=== PATIENT | male | born 1965 | race Caucasian/White ===

== ENCOUNTER 2016-12-29 08:21 | Inpatient (IN) | payer BC, OTHER ==
[2016-11-19 10:58] VITALS: BMI 44.0
--- NOTE | 2016-11-19 11:29 | PAT Medication Instructions ---
Service Date Nov 19, 2016. Current Home Medication List Celecoxib (Celebrex), 100 MG PO BID PRN for Pain Lisinopril/Hctz (Zestoretic 20MG/25MG), 1 TAB PO BID Metronidazole (Topical) (Metrogel), 1 DOSE TOP HS Multivitamin (Multivitamin), 1 TAB PO QAM Warfarin Sodium (Warfarin Sodium), 15 MG PO WEDNESDAY Warfarin Sodium (Warfarin Sodium), 10 MG PO WED,,,,, Medication Instructions For Your Scheduled Surgery - Hold the following medications per your prescriber's instructions: Warfarin Sodium (Warfarin Sodium), 15 MG PO WEDNESDAY Warfarin Sodium (Warfarin Sodium), 10 MG PO WED,,,,, - Hold the following medications per your surgeon's instructions: Celecoxib (Celebrex), 100 MG PO BID PRN for Pain - Hold the following medications 24 hours prior to surgery: Lisinopril/Hctz (Zestoretic 20MG/25MG), 1 TAB PO BID Metronidazole (Topical) (Metrogel), 1 DOSE TOP HS - Hold the following medications the morning of surgery: Multivitamin (Multivitamin), 1 TAB PO QAM If you have any questions please call us at [phone] or [phone] or [phone]
[2016-11-19 12:36] LABS: BASO % 0.9 %; BASO ABS # 0.06 K/uL (0-0.2); BUN/CREATININE RATIO 22.2 (10-20); CALCIUM 8.8 mg/dl (8.5-10.1); COMPLETE YES; CREATININE 1.1 mg/dl (0.60-1.40); EOS % 1.6 %; HEMATOCRIT 43.3 % (42-52); IG% 0.1 %; LYMPH % 31.2 %; LYMPH ABS # 2.14 K/uL (1.2-3.4); MEAN CELL VOLUME 86.1 fL (80-100); MEAN CORPUSCULAR HGB CONC 33.7 g/dl (32-36); MONO % 5.4 %; NEUT % 60.8 %; PLATELET COUNT 235 K/uL (130-400); POTASSIUM 3.5 mmol/L (3.5-5.1); RED BLOOD COUNT 5.03 M/uL (4.7-6.1); WHITE BLOOD COUNT 6.85 K/uL (4.8-10.8)
[2016-11-19 12:45] LABS: INR 2.7 (0.9-1.1); PARTIAL THROMBOPLASTIN RATIO 1.8; PROTHROMBIN TIME (PATIENT) 29.7 SECONDS (9.0-12.0)
--- NOTE | 2016-11-19 12:59 | DIAGNOSTIC IMAGING REPORT ---
CHEST 2 VIEWS ROUTINE CLINICAL HISTORY: 51 years-old Male presenting with preoperative assessment. TECHNIQUE: PA and lateral views of the chest were obtained. COMPARISON: None. FINDINGS: Mild prominence of the cardiac silhouette. Mild elevation of the left hemidiaphragm. Lungs and pleural spaces clear. Osseous structures normal. Upper abdomen normal. IMPRESSION: 1. Mild cardiomegaly. 2. No acute cardiopulmonary disease. Electronically signed by: Jorge A Estrada M.D. 11/19/2016 12:58 PM Dictated Date/Time: 11/19/2016 12:57 PM
--- NOTE | 2016-12-26 19:48 | HISTORY & PHYSICAL EXAMINATION ---
DATE OF ADMISSION: 12/29/2016 CHIEF COMPLAINT: Left knee pain. HISTORY OF PRESENT ILLNESS: A 51-year-old gentleman who presents for surgical treatment of his left knee. He has got a long history of bilateral knee problems and I have been following him over the years and treated him conservatively. He does have a history of both knees having arthroscopy in the past many years ago. He did pretty well for years but over the past 4-5 years, he has developed increased pain and discomfort and particularly his left knee more so than the right. He has been through extensive conservative care which really has not helped much. It continues to bother abide pain, discomfort, swelling, they are limiting his activities. He does Factor V Leiden abnormality and on Coumadin. Really cannot take much in the way of NSAIDs as a result. Of note, the patient has a walking tolerance of just a couple blocks. He does have a history of blood clot 15 years ago but no PE. PAST MEDICAL HISTORY: 1. Hypertension. 2. Factor V Leiden abnormality with 1 calf clot in his left leg in the past. 3. Obesity with a BMI of 45. PAST SURGICAL HISTORY: Include: 1. Bilateral knee scopes. 2. Cholecystectomy. 3. Hernia surgery. ALLERGIES: PENICILLIN, REACTION IS UNKNOWN. CURRENT MEDICINES: Include: 1. Coumadin 15 mg on Wednesday and 10 mg all other days. 2. Central. 3. CELEBREX. 4. Multivitamin. SOCIAL HISTORY: A 51-year-old male patient from [place]. REVIEW OF SYSTEMS: Negative for diabetes. No known history of blood clots in the family. REVIEW OF SYSTEMS: Significant for Factor V Leiden abnormality. He had one DVT in the past. No PEs. No shortness of breath. No cardiac issues. No bleeding problems. PHYSICAL EXAMINATION: GENERAL: Reveals a pleasant middle-aged male. He looks to be in reasonably good health. HEENT: Benign. NECK: Supple. No lymphadenopathy. LUNGS: Clear to auscultation. HEART: Has a regular rate and rhythm. ABDOMEN: Soft, nontender, nondistended. EXTREMITIES: Grossly neurovascularly intact except as follows: Examination of the left knee reveals the patient walks with a slight bit of a limp. He has got well healed arthroscopic portal sites around his knee. He has got a moderate sized knee effusion. Range of motion is 5 degrees short of full extension to 120 degrees of flexion. No pain with hip motion. IMAGING DATA: X-rays of the left knee were reviewed. It shows advanced left knee DJD. He has got complete loss of his medial joint space. He has got osteophytes of mediofemoral condyle and medial tibial plateau. ASSESSMENT: A 51-year-old male with a history of Factor V Leiden abnormality as well as a knee scope in the past with advanced left knee degenerative joint disease. He has failed conservative treatment and would like to have his left knee replaced. PLAN: We will take him to the operating room and do a left total knee replacement. The risks and benefits of this procedure were explained to the patient including but not limited to DVT, PE, , infection, neurological injury, vascular injury, bleeding problem, pain, limited range of motion, stiffness, failure to relieve symptoms, incomplete relief of symptoms, need for further surgery in the future, fracture, leg length inequality, nerve palsy, etc. The patient understands and desires to proceed. Informed consent was obtained. We did talk to him about holding the lisinopril the morning of surgery. He will stop Coumadin 5 days preoperatively. He will stop any Lovenox 24 hours preop. This will be done through the [facility] clinic. He should be able to be discharged home and do outpatient therapy. We will need a stat PT and INR in the a.m. of surgery.
[~2016-12-29] VITALS: Ht 172.7 cm; Wt 131.2 kg
[2016-12-29] VITALS (9 sets, daily range): BP systolic 148–199; BP diastolic 81–124; PULSE 67–80; TEMP 36.2–36.8; O2SAT 95–99; Ht 172.7 cm; Wt 131.2 kg
[~2016-12-29 08:21] MED LIST: ACETAMINOPHEN 500 MG TAB PO SCH; BUPIVACAINE 0.25% 30 ML VIAL ONE; BUPIVACAINE 0.5 % 5 MG/1 ML PF 10ML VIAL ONE; BUPIVACAINE LIPOSOME 266 MG, BUPIVACAINE/EPINEPHRINE INJ 50 ML, SODIUM CHLORIDE 0.9% PF... INFIL SCH; CARV3.122 PO; CEFAZOLIN 3000MG IV PUSH 15 ML IV SCH; CELE100C PO; FAMOTIDINE 20 MG TAB PO SCH; GABAPENTIN 300 MG CAP PO SCH; LACTATED RINGER'S 1000ML 1,000 ML IV SCH; LACTATED RINGER'S 1000ML 500 ML IV ONE; LACTATED RINGER'S 1000ML IV SCH; LISI-788 PO; METOCLOPRAMIDE HCL 10 MG TAB PO SCH; METR0.7527 TOP; MULT-506 PO; SCOPOLAMINE 1.5 MG TDSY TD SCH; TRANEXAMIC ACID INJ 1,000 MG in SYRINGE 0 ML IV SCH; WARF-246 PO
[2016-12-29] MEDS ORDERED: ENOX120I SQ (08:41)
--- NOTE | 2016-12-29 09:11 | History & Physical Bridge Note ---
H&P Re-Evaluation Bridge Note: I have examined the patient, reviewed the History & Physical and in the interval since the performance of the History & Physical I have noted the following changes of clinical significance: No changes noted
[2016-12-29 09:23] LABS: PARTIAL THROMBOPLASTIN RATIO 1.1; PROTHROMBIN TIME (PATIENT) 10.7 SECONDS (9.0-12.0)
[2016-12-29] MEDS ORDERED: MEPERIDINE HCL 25 MG/ML CARP IV PRN (10:00)
[2016-12-29] MEDS ORDERED: ONDANSETRON INJ 2 MG/ML 2 ML VIAL IV PRN ×2 (10:00→13:30)
[2016-12-29] MEDS ORDERED: FENTANYL CITRATE INJ 50 MCG/1 ML 2 ML VIAL IV PRN (10:00)
[2016-12-29] MEDS ORDERED: EpHEDrine SULFATE INJ 50 MG/ML AMP IV PRN (10:00)
[2016-12-29] MEDS ORDERED: ATROPINE SULFATE 0.1 MG/ML 5ML SYR IV PRN (10:00)
[2016-12-29] MEDS ORDERED: LABETALOL HCL IV 5 MG/ML 20ML IV PRN (10:00)
[2016-12-29] MEDS ORDERED: HYDROmorphone INJ 1 MG/ML SYR IV PRN (10:00)
[2016-12-29] MEDS ORDERED: MIDAZOLAM HCL 1 MG/ML 2ML VIAL ONE ×2 (10:35)
[2016-12-29] MEDS ORDERED: FENTANYL CITRATE INJ 50 MCG/1 ML 2 ML VIAL ONE (10:35)
[2016-12-29] MEDS ORDERED: BUPIVACAINE/EPINEPHRINE 0.25% 1:200,000 30 ML VIAL ONE (11:19)
[2016-12-29] MEDS ORDERED: SODIUM CHLORIDE 0.9% PF 50 ML VIAL ONE (11:19)
[2016-12-29] MEDS ORDERED: BUPIVACAINE LIPOSOME 1/3% 266 MG/20 ML VIAL INFIL ONE (11:20)
[2016-12-29] MEDS ORDERED: BACITRACIN 50000 UNIT VIAL ONE (11:20)
[2016-12-29] MEDS ORDERED: PROPOFOL IV EMULSION 10 MG/ML 20 ML VIAL IV ONE ×2 (13:05)
--- NOTE | 2016-12-29 13:24 | [facility] Post Operative Brief Note ---
Immediate Operative Summary Operative Date Dec 29, 2016. Pre-Operative Diagnosis Left knee degenerative joint disease Post-Operative Diagnosis Left knee degenerative joint disease Procedure(s) Performed Left total knee arthroplasty Surgeon Dr. Glynn Lawrence Desulphuring Operator Surgeon(s) Zuhair Rabago PA-C Estimated Blood Loss 50cc Findings Left Knee DJD Fluids (cc crystalloids) 2000 cc Specimens A. Left knee bone and tissue Drains None Anesthesia Spinal Complication(s) None Disposition Recovery Room / PACU
[2016-12-29] MEDS ORDERED: BISACODYL 10 MG SUPP PR PRN (13:30)
[2016-12-29] MEDS ORDERED: MoRPHine SULFATE 2 MG/ML CARP IV PRN (13:30)
[2016-12-29] MEDS ORDERED: DiphenhydrAMINE HCL 50 MG/ML VIAL IV PRN (13:30)
[2016-12-29] MEDS ORDERED: TAMSULOSIN HCL 0.4 MG CAP PO PRN (13:30)
[2016-12-29] MEDS ORDERED: ZOLPIDEM TARTRATE 5 MG TAB PO PRN (13:30)
[2016-12-29] MEDS ORDERED: ALUMINUM/MAGNESIUM/SIMETH (MAALOX MAX) 30 ML UDC PO PRN (13:30)
[2016-12-29] MEDS ORDERED: MAGNESIUM HYDROXIDE SUSP 30 ML UDC PO PRN (13:30)
[2016-12-29] MEDS ORDERED: SILVER SULFADIAZINE 1% CR 50 GM JAR EXT PRN (13:30)
[2016-12-29] MEDS ORDERED: METOCLOPRAMIDE HCL INJ 5 MG/ML 2 ML VIAL IV PRN (13:30)
--- NOTE | 2016-12-29 14:10 | DIAGNOSTIC IMAGING REPORT ---
L KNEE 1 OR 2 VIEWS ROUTINE HISTORY: 51 years-old Male AP/LATERAL IN PACU LEFT KNEE status post left knee total joint arthroplasty. Degenerative joint disease. COMPARISON: Left knee radiographs 11/19/2016 TECHNIQUE: 2 views of the left knee FINDINGS: Postoperative changes compatible with recent total joint arthroplasty and patellar resurfacing. No periprosthetic fracture, retained foreign body or malalignment. Skin ruth are seen anteriorly. Expected soft tissue swelling and deep tissue air is noted about the knee. IMPRESSION: Status post left knee total joint arthroplasty and patellar resurfacing without complication. The above report was generated using voice recognition software. It may contain grammatical, syntax or spelling errors. Electronically signed by: Sonny Lam M.D. 12/29/2016 2:09 PM Dictated Date/Time: 12/29/2016 2:08 PM
--- NOTE | 2016-12-29 14:18 | Anesthesiology Progress Note ---
Anesthesia Post Op Note Date & Time Dec 29, 2016 at 14:17 Vital Signs Pain Intensity: 0 Vital Signs Past 12 Hours Date Time Temp Pulse Resp B/P (MAP) Pulse Ox O2 Delivery O2 Flow Rate FiO2 12/29/16 14:10 36.4 62 18 157/89 98 Nasal Cannula 2 12/29/16 14:00 68 21 157/87 97 Nasal Cannula 2 12/29/16 13:50 71 22 140/86 96 Nasal Cannula 2 12/29/16 13:40 72 19 151/94 97 Nasal Cannula 2 12/29/16 13:33 37.5 79 12 141/88 94 Nasal Cannula 2 12/29/16 08:46 36.6 80 18 167/124 95 Room Air Notes Mental Status: alert / awake / arousable, participated in evaluation Pt Amnestic to Procedure: Yes Nausea / Vomiting: adequately controlled Pain: adequately controlled Airway Patency, RR, SpO2: stable & adequate BP & HR: stable & adequate Hydration State: stable & adequate Neuraxial Anesthesia: was administered, sensory block is resolving Anesthetic Complications: no major complications apparent
--- NOTE | 2016-12-29 15:58 | PROGRESS NOTE ---
DATE: 12/29/2016 SUBJECTIVE: A 51-year-old gentleman postop from a left knee replacement. He is doing well. Really not having much in the way of pain yet. No chest pain or shortness of breath. Not feeling dizzy or lightheaded. OBJECTIVE: VITAL SIGNS: Temperature is 36.3. Vital signs stable. GENERAL: Physical examination reveals a healthy, pleasant, middle-aged male. He is sitting up in bed and looks pretty comfortable. LUNGS: Clear to auscultation. HEART: Regular rate and rhythm. ABDOMEN: Soft, nontender, and nondistended. EXTREMITIES: Grossly neurovascularly intact except as follows: Examination of the left lower extremity reveals the leg to be well aligned. Dressing is clean, dry, and intact. He can dorsiflex and plantarflex his foot appropriately. He has got brisk refill. X-RAYS: X-rays of the left knee from today were reviewed, from the recovery room. He has a left cemented posterior stabilized total knee arthroplasty. Components look to be in good position. No signs of problems. ASSESSMENT: A 51-year-old gentleman postop from a left knee replacement, doing well. Pain is controlled. He is neurologically intact. PLAN: 1. DVT prophylaxis including thigh-high TEDs, SCDs, and Coumadin. I will dose him tonight and we will put him on some prophylactic Lovenox 24 hours postoperative until his Coumadin is more therapeutic. We will give him a bolus of Coumadin tonight of 17 mg. 2. PT/OT. Weight bear as tolerated. Left total knee protocol. 3. Pain control, doing well with current pain regimen. 4. IV antibiotics x24 hours. 5. Disposition: He is planning to be discharged to home and do outpatient therapy once adequately recovered.
[2016-12-29] MEDS ORDERED: WARFARIN SOD 2 MG TAB PO SCH (16:00)
[2016-12-29] MEDS ORDERED: WARFARIN SOD 5 MG TAB PO SCH (16:00)
[2016-12-29] MEDS: CHECK SCOPOLAMINE PATCH PLACEMENT SCH (16:13)
[2016-12-29] MEDS: KETOROLAC TROMETHAMINE 30 MG/ML VIAL IV. SCH ×2 (16:22→21:33)
[2016-12-29] MEDS: ACETAMINOPHEN 500 MG TAB PO SCH ×2 (17:13→21:32)
[2016-12-29] MEDS: FERROUS GLUCONATE 324 MG TAB PO SCH (17:39)
[2016-12-29] MEDS: D5W AND 1/2NSS + 20MEQ KCL 1,000 ML IV SCH (17:39)
[2016-12-29] MEDS: CARVEDILOL 3.125 MG TAB PO SCH (17:57)
[2016-12-29] MEDS: LISINOPRIL/HCTZ 20/25MG TAB PO SCH (18:02)
[2016-12-29] MEDS ORDERED: TRANEXAMIC ACID INJ 1,000 MG in SODIUM CHLORIDE 0.9% 100ML 100 ML IV SCH (19:30)
[2016-12-29] MEDS: CEFAZOLIN IV 2,000 MG in SYRINGE 0 ML IV SCH (19:34)
[2016-12-29] MEDS: OXYCODONE HCL IR 5 MG TAB (IMMEDIATE RELEASE) PO PRN (19:37)
--- NOTE | 2016-12-29 20:52 | OPERATIVE REPORT ---
DATE OF OPERATION: 12/29/2016 SURGEON: Glynn Lawrence MD CIRCUS AGENT: BRIGETTE Fernandez PREOPERATIVE DIAGNOSIS: Left knee degenerative joint disease. POSTOPERATIVE DIAGNOSIS: Same. PROCEDURE PERFORMED: Left cemented posterior stabilized total knee arthroplasty. COMPLICATIONS: None. ESTIMATED BLOOD LOSS: 50 mL. FLUID REPLACEMENT: 2000 mL crystalloid fluid replacement. TOURNIQUET TIME: 62 minutes at 300 mmHg. ANESTHESIA: Spinal with adductor canal block. DRAINS: None. SPECIMENS: Left knee; sent for pathology. OPERATIVE INDICATIONS: The patient is a 51-year-old gentleman, who has had a long history of knee problems. He has had both of his knees scoped in the past. I have been treating him for the past 5 years conservatively for pretty advanced knee arthritis. This became less successful over time. The left knee was really limiting his activities. He has had recurrent effusions, pain, discomfort and with advanced arthritic change on x-ray. The patient elected to proceed with operative treatment. OPERATIVE FINDINGS: Operative findings revealed advanced left knee DJD. He had grade 4 [id number] disease in the medial femoral condyle and medial tibial plateau with eburnation of the medial femoral condyle and medial tibial plateau. He had varus alignment to his knee. He had large knee joint effusion. OPERATIVE IMPLANTS: Operative implants consisted of: 1. A Biomet Vanguard size 70 left posterior stabilized femoral component. 2. A Biomet size 75 tibial tray. 3. A 14 mm posterior stabilized polyethylene insert. 4. A 34 x 8.5 all poly patella. OPERATIVE PROCEDURE: The patient was taken to the operating room, identified and placed on the operating table in supine position. All contact areas were appropriately padded. IV antibiotics were provided by the anesthesia team. A spinal anesthetic and adductor canal block had been provided in the holding area. A Grayson catheter was placed in a sterile fashion. A left thigh tourniquet was then placed and the left lower extremity was then prepped and draped in the usual sterile fashion. The left leg was elevated and exsanguinated with Esmarch and tourniquet was placed at 300 mmHg. An anterior approach of the left knee was then performed through a longitudinal incision centered over the patella. A sharp dissection was carried out through the subcutaneous tissues down to the level of the extensor mechanism. A medial parapatellar arthrotomy incision was made. Some subperiosteal dissection was carried out medially. The fat pad was resected from beneath the patellar tendon. The lateral patellofemoral ligament was released. The patella was everted and the knee was flexed. The osteophytes were taken off the distal femur. The ACL and PCL were then released from the distal femur and the tibia was subluxated anteriorly. The external tibial alignment jig was then placed in the anterior face of the tibia and adjusted to 14 mm medially. A proximal tibial cut was made to remove about 2-3 mm of bone from the most deficient aspect of the medial tibial plateau. This did take a fairly large piece off laterally. The tibia was then sized to a size 75. Some osteophytes were taken off posterior and posteromedially. Attention was then drawn to the femur. The distal femur was entered with a sharp drill. Intramedullary canal was suctioned. A left 6 degree valgus cutting guide was placed. A distal femoral cutting block was pinned in place. A distal femoral cut was made to take an additional 3 mm of bone off the distal femur. The femur was then sized to a size 70. We did downsize this slightly. The AP cutting block was pinned parallel to the epicondylar axis, which was 5 degrees of external rotation. The anterior cut, anterior chamfer, posterior cut and posterior chamfer cuts were made. A box cutting guide was placed, adjusted slightly lateral and the box cut was made. The knee was flexed. The remnants of the medial and lateral menisci were excised. The osteophytes were taken off the posterior aspect of the femur. A trial femoral component was placed. A tibial tray was pinned in maximum external rotation and drill and stem punch were used to create defect in proximal tibia for the tibial tray. The knee was then trialed and the 14 mm insert fit most appropriately. Attention was then drawn to the patella. The patella was cleaned of all soft tissues. Patella thickness measured 24 mm, cut down to 14. It was sized to a size 34 patella. Lug holes were drilled for a 34 patella. The lateral osteophyte was removed. Patella button was placed. Knee was taken through range of motion and the patella tracked nicely with the no thumbs test. Attention was then drawn toward placement of permanent components. All trial components were removed. A bone plug was placed in the distal femur to limit blood loss. A double batch of Palacos G cement was mixed. A left size 70 posterior bifemoral component, size 75 tibial tray, a 14 mm posterior stabilized polyethylene insert and a 34 x 8.5 all poly patella were then cemented in place. The knee was brought out into full extension until the cement hardened and a final cement check was then performed. Pericapsular tissues were injected with a total of 100 mL of a combination of 20 mL of Exparel, 30 mL of normal saline and 50 mL of 0.25% Marcaine with epinephrine. The patient did receive 1 gram of tranexamic acid. The tourniquet was then let down for a final tourniquet time of 62 minutes. Hemostasis was assured using electrocautery. The wound was once again irrigated. The extensor mechanism was then closed with a combination of #1 PDS suture and #1 Vicryl suture in a [id number] fashion. Extensor mechanism was checked and found to be intact. The subcutaneous tissues were then closed with 2-0 Dexon suture in a buried interrupted fashion. The skin was closed with skin ruth. The leg was then cleaned and dried and a sterile dressing of Xeroform, 4 x 4, sterile cast padding and Luke bandage were applied. The patient was then transferred to the recovery room in stable condition. The patient tolerated the procedure well with no complications. All needle and sponge counts were correct at the end of the operation. I attest to the content of the Intraoperative Record and any orders documented therein. Any exception s are noted below.
[2016-12-29] MEDS: DOCUSATE SODIUM 100 MG CAP PO SCH (21:27)
[2016-12-29] MEDS: SENNA 8.6 MG TAB PO SCH (21:27)
[2016-12-29] MEDS: METRONIDAZOLE 0.75% TOPICAL GEL 45 GM TUBE TOP SCH (21:27)
[2016-12-29] MEDS: TAPENTADOL ER 50 MG TABCR PO SCH (21:31)
[2016-12-30] VITALS (11 sets, daily range): BP systolic 160–199; BP diastolic 85–113; PULSE 76–101; TEMP 36.7–37.1; O2SAT 95–97
[2016-12-30] MEDS: CHECK SCOPOLAMINE PATCH PLACEMENT SCH ×3 (00:11→15:28)
[2016-12-30] MEDS: D5W AND 1/2NSS + 20MEQ KCL 1,000 ML IV SCH ×2 (00:13→06:08)
[2016-12-30] MEDS: CEFAZOLIN IV 2,000 MG in SYRINGE 0 ML IV SCH (03:52)
[2016-12-30] MEDS: KETOROLAC TROMETHAMINE 30 MG/ML VIAL IV. SCH ×4 (04:01→22:09)
[2016-12-30] MEDS ORDERED: NURSING DECISION MEDICATION ORDER SCH (05:00)
[2016-12-30] MEDS: ACETAMINOPHEN 500 MG TAB PO SCH ×3 (06:07→22:07)
[2016-12-30 06:55] LABS: HEMATOCRIT 38.4 % (42-52); MEAN CELL VOLUME 87.1 fL (80-100); MEAN CORPUSCULAR HGB CONC 33.3 g/dl (32-36); MEAN PLATELET VOLUME 10.3 fL (7.4-10.4); PLATELET COUNT 190 K/uL (130-400); RED BLOOD COUNT 4.41 M/uL (4.7-6.1); WHITE BLOOD COUNT 9.31 K/uL (4.8-10.8)
[2016-12-30 07:11] LABS: INR 1.1 (0.9-1.1); PROTHROMBIN TIME (PATIENT) 11.8 SECONDS (9.0-12.0)
[2016-12-30 07:35] LABS: BUN/CREATININE RATIO 15.5 (10-20); CALCIUM 8.3 mg/dl (8.5-10.1); CREATININE 0.88 mg/dl (0.60-1.40); POTASSIUM 3.4 mmol/L (3.5-5.1)
[2016-12-30] MEDS: OXYCODONE HCL IR 5 MG TAB (IMMEDIATE RELEASE) PO PRN ×2 (07:35→11:31)
[2016-12-30] MEDS ORDERED: ACET-24 PO (07:57)
[2016-12-30] MEDS ORDERED: RXC5 PO (07:57)
[2016-12-30] MEDS ORDERED: MORP-157 PO (07:57)
[2016-12-30] MEDS ORDERED: POTASSIUM CHLORIDE 20 MEQ TABCR PO ONE (08:00)
--- NOTE | 2016-12-30 08:01 | Discharge Instructions ---
Discharge Instructions Date of Service Dec 30, 2016. Admission Reason for Admission: Left Knee Degenerative Joint Disease Discharge Discharge Diagnosis / Problem: Left Knee Replacement Discharge Goals Goal(s): Decrease discomfort, Improve function, Increase independence, Improve disease control, Therapeutic intervention Activity Recommendations Activity Limitations: per Instructions/Follow-up section Weightbearing Status: Left weightbearing . Instructions / Follow-Up Instructions / Follow-Up ACTIVITY RECOMMENDATIONS: Physical Therapy: * You will go to physical therapy three times each week for four to six weeks after your surgery in order to regain your knee range of motion and to retrain your knee to work properly. * It is just as important to make sure you are getting your knee perfectly straight as it is to regain your knee bend. * Taking a pain pill an hour before therapy can help you have a more productive and comfortable therapy session. Home Exercise: * You were shown a series of exercises (heel props, heel slides, etc.) in the hospital. Do these exercises three to four times each day including the exercises you were shown in physical therapy. Walking: * Get up and walk several times each day. For the first four weeks, try not to stand or walk for more than one hour at a time. If you do stand or walk for more than one hour, you will not hurt anything, but your knee and leg will likely swell. * As you feel comfortable, you may change from the walker or crutches to a cane and then to independent walking. MEDICATIONS: New Medicine: * You will likely be taking one or more of these medications: 1. MS Contin - A long-acting pain medication. Take 1 tablet twice a day for the first ten days to decrease your baseline level of pain. 2. Oxycodone - A quick and shorter-acting pain medication. Take one to two tablets every four to six hours to lessen your pain. 3. Coumadin - Thins your blood to lessen the chance of forming a blood clot. * The most common side effects of pain medicine and iron are nausea and constipation. If nausea or constipation is too much of a problem or if you have any questions about your new medicines or doses, call [facility] at [phone]. We will try to help you manage these issues. VERY IMPORTANT TO READ AND REVIEW" Pain: * The immediate post-operative period after knee replacement surgery is often quite painful. * You are given a prescription for pain medicine. You should take it, as directed, when you need it, especially before physical therapy and before going to bed. Pain that interferes with sleep is very common and can last several months. * You will likely need pain medicine for the first four to six weeks. It will not stop all of the pain. The pain will lessen and as you feel better, you may change to milder pain medicine such as Tylenol. * The most common side effects of pain medicine are nausea and constipation, so don't take more than you need. SPECIAL CARE INSTRUCTIONS: TEDs/Elastic Stockings: * The white elastic stockings help limit swelling and prevent blood clots from forming in your legs. The more you wear them, the more they work. * Wear them for six weeks after knee replacement surgery and four weeks after partial knee replacement. Prevention of Infection: * Take antibiotics one hour before any dental cleaning, dental work, urological procedure, gastrointestinal procedure or any invasive surgery in order to prevent your new joint from getting infected. * You may get the antibiotics from the doctor performing the procedure or you may call our office at before and we will call in a prescription to the pharmacy of your choice. Things to Watch For: * Drainage from the incision site that occurs more than one week after your surgery. * Severely increased knee/leg pain or swelling. * Increased redness at the incision site. * Fever above 102 degrees Fahrenheit. * Unusual chest pain or shortness of breath. * Unusual pain or burning with urination. Call [facility] at with any of the above problems or if you have any questions about your medicines or recovery. FOLLOW UP VISIT: Make an appointment to see your doctor for approximately two weeks after surgery for a progress check and staple removal by calling the office at . Current Hospital Diet Patient's current hospital diet: Regular Diet Discharge Diet Recommended Diet: Regular Diet Procedures Procedures Performed: Left total knee arthroplasty Pending Studies Studies pending at discharge: no Medical Emergencies . Who to Call and When: Medical Emergencies: If at any time you feel your situation is an emergency, please call [phone] immediately. . Non-Emergent Contact Non-Emergency issues call your: Surgeon . "Provider Documentation" section prepared by Glynn Lawrence. . VTE Core Measure Inpt VTE Proph given/why not?: Warfarin (Coumadin), TBrian Hernandez, SCD's
[2016-12-30] MEDS: TAPENTADOL ER 50 MG TABCR PO SCH ×2 (08:57→20:39)
[2016-12-30] MEDS: MULTIVITAMIN TAB PO SCH (08:57)
[2016-12-30] MEDS: FERROUS GLUCONATE 324 MG TAB PO SCH ×3 (08:57→18:24)
[2016-12-30] MEDS: LISINOPRIL/HCTZ 20/25MG TAB PO SCH ×2 (08:58→20:37)
[2016-12-30] MEDS: DOCUSATE SODIUM 100 MG CAP PO SCH ×2 (08:58→20:36)
[2016-12-30] MEDS: CARVEDILOL 3.125 MG TAB PO SCH ×2 (08:59→20:36)
[2016-12-30] MEDS: PANTOprazole SOD 40 MG TAB PO SCH (08:59)
[2016-12-30] MEDS ORDERED: MULTIVITAMIN TAB PO SCH (09:00)
--- NOTE | 2016-12-30 10:25 | PROGRESS NOTE ---
DATE: 12/30/2016 SUBJECTIVE: A 51-year-old gentleman postop day 1 from left knee replacement. He is doing pretty well. Painful but manageable. No chest pain or shortness of breath. Not feeling dizzy or lightheaded. OBJECTIVE: VITAL SIGNS: Temperature is 37.1. Vital signs stable. Still some mild hypertension intermittently. PHYSICAL EXAMINATION: GENERAL: Reveals a pleasant middle-aged male. He is walking the hallways with the therapist when I visit him today. EXTREMITIES: Examination of the left leg reveals the dressing to be clean, dry and intact. He can dorsiflex and plantarflex his foot appropriately. NEUROLOGIC: He is neurologically intact. LABORATORY DATA: Hemoglobin 12.8, hematocrit 38.4. Electrolytes stable. Potassium slightly low at 3.4. INR 1.1. ASSESSMENT: A 51-year-old male with Factor V Leiden abnormality, postop day 1 from left knee replacement, doing pretty well. A little bit hypertensive but we have now gone back on his normal blood pressure meds and we will have to follow this along. Pain is controlled. He is neurologically intact. PLAN: 1. DVT prophylaxis including thigh-high TEDs, SCDs, and Coumadin. We will start him on prophylactic Lovenox 24 hours postop. It is too early to put him on full doses of Lovenox. Our goal would be to get him therapeutic on his Coumadin and then stop the Lovenox. 2. PT/OT. Weight bear as tolerated. Left total knee protocol. 3. Pain control, doing pretty well with current pain regimen. 4. Hypokalemia. We will supplement his potassium and recheck tomorrow. 5. Disposition: He is planning to be discharged home and do outpatient therapy once adequately recovered.
--- NOTE | 2016-12-30 13:37 | Medical Consult ---
Consultation Date of Consultation: Dec 30, 2016. Attending Physician: Glynn Lawrence M.D. Reason for Consultation: Hypertension History of Present Illness This is a 51 year old M on orthopedic service s/p post-op on 12/29/16 Left total knee arthroplasty for Left knee degenerative joint disease Medicine consult called for hypertension uncontrolled on carvedilol and Lisinopril-HCTZ Patient seen and examined and denied acute left lower extremity pain at the site of the operation. However has been doing physical therapy earlier. Denies chest pain or shortness of breath. Is comfortable sitting on bed and speaking in full sentences Patient reports that in the past he has tried amlodipine for blood pressure control however stopped because of pedal edema I have reviewed the patient's medical chart and discussed with the patient that because he is already on BID dosing of Lisinopril and HCTZ and that increasing carvedilol may affect that patient's heart rate, that it may be possible for the patient to take amlodipine in the short term. Patient also had not been making bowel movements and minimal urine output since surgery. Have informed the nurse about plans to give amlodipine 10 mg stat and monitor for urine output with bladder scan if needed Social History Smoking Status: Never Smoker Allergies Coded Allergies: Penicillins (Verified Allergy, Unknown, unable to recall, 12/29/16) Home Medications Medications Administered Medications (Trade) Dose Ordered Sig/Galindo Route Start Time Stop Time Status Last Admin Dose Admin Lactated Ringer's 1,000 ml @ 15 mls/hr Q24H IV 12/29/16 06:00 12/29/16 14:46 DC 12/29/16 09:10 15 MLS/HR Lactated Ringer's 500 ml @ 999 mls/hr Q31M ONCE IV 12/29/16 06:00 12/29/16 06:30 DC 12/29/16 09:09 999 MLS/HR Cefazolin Sodium 15 ml @ 3 mls/min PREOP IV 12/29/16 06:00 12/29/16 14:46 DC 12/29/16 11:38 3 MLS/MIN Acetaminophen (Tylenol Tab) 1,000 mg PREOP PO 12/29/16 06:00 12/29/16 14:46 DC 12/29/16 09:10 1,000 MG Famotidine (Pepcid Tab) 20 mg PREOP PO 12/29/16 06:00 12/29/16 14:46 DC 12/29/16 09:10 20 MG Gabapentin (Neurontin Cap) 900 mg PREOP PO 12/29/16 06:00 12/29/16 14:47 DC 12/29/16 09:11 900 MG Metoclopramide HCl (Reglan Tab) 10 mg PREOP PO 12/29/16 06:00 12/29/16 14:47 DC 12/29/16 09:11 10 MG Scopolamine (Transderm-Scop Patch) 1.5 mg PREOP TD 12/29/16 06:00 12/29/16 14:47 DC 12/29/16 09:11 1.5 MG Miscellaneous Information (Check Scopolamine Patch Placement) 1 ea QS N/A 12/29/16 16:00 01/01/17 05:59 12/30/16 07:37 1 EA Bupivacaine HCl/ Epinephrine Bitart (BUPIVACAINE/EPI 0.25% Inj 1:200,000) 60 ml STK-MED ONCE .ROUTE 12/29/16 11:19 12/29/16 11:20 DC 12/29/16 12:13 50 ML Sodium Chloride (Sodium Chloride 0.9% Pf Inj) 50 ml STK-MED ONCE .ROUTE 12/29/16 11:19 12/29/16 11:20 DC 12/29/16 12:13 30 ML Bacitracin (Bacitracin Inj) 50,000 units STK-MED ONCE .ROUTE 12/29/16 11:20 12/29/16 11:21 DC 12/29/16 12:13 50,000 UNITS Bupivacaine Liposome (Exparel) 266 mg STK-MED ONCE INFIL 12/29/16 11:20 12/29/16 11:21 DC 12/29/16 12:13 266 MG Potassium Chloride/Dextrose/ Sod Cl 1,000 ml @ 150 mls/hr Q6H40M IV 12/29/16 15:00 12/30/16 13:23 DC 12/30/16 06:08 150 MLS/HR Cefazolin Sodium 2000 mg/Syringe 10 ml @ 2.5 mls/min Q8H IV 12/29/16 20:00 12/30/16 04:03 DC 12/30/16 03:52 2.5 MLS/MIN Oxycodone HCl (Roxicodone Immediate Rel Tab) 1 TABLET FOR PAIN RATING... Q4H PRN PO 12/29/16 13:30 01/12/17 13:29 12/30/16 11:31 10 MG Acetaminophen (Tylenol Tab) 1,000 mg Q8 PO 12/29/16 16:00 01/28/17 13:29 12/30/16 06:07 1,000 MG Senna (Senokot Tab) 17.2 mg HS PO 12/29/16 21:00 01/28/17 20:59 12/29/16 21:27 17.2 MG Docusate Sodium (coLACE CAP) 100 mg BID PO 12/29/16 21:00 01/28/17 20:59 12/30/16 08:58 100 MG Multivitamins (Multivitamin Tab) 1 tab QAM PO 12/30/16 09:00 01/29/17 08:59 12/30/16 08:57 1 TAB Ferrous Gluconate (Ferrous Gluconate Tab) 324 mg TIDM PO 12/29/16 17:45 01/28/17 17:59 12/30/16 13:02 324 MG Pantoprazole Sodium (Protonix Tab) 40 mg QAM PO 12/30/16 09:00 01/29/17 08:59 12/30/16 08:59 40 MG Tapentadol (Nucynta Er Tab) 50 mg Q12 PO 12/29/16 21:00 01/28/17 20:59 12/30/16 08:57 50 MG Tranexamic Acid 1000 mg/Sodium Chloride 110 ml @ 660 mls/hr Q6H IV 12/29/16 19:30 12/29/16 19:39 DC 12/29/16 19:34 660 MLS/HR Ketorolac Tromethamine (Toradol Inj) 30 mg Q6H IV. 12/29/16 16:00 12/31/16 13:29 12/30/16 10:23 30 MG Carvedilol (Coreg Tab) 3.125 mg BID PO 12/29/16 21:00 01/28/17 20:59 12/30/16 08:59 3.125 MG HCTZ/Lisinopril (Prinzide 20-25MG Tab) 1 tab BID PO 12/29/16 21:00 01/28/17 20:59 12/30/16 08:58 1 TAB Metronidazole HCl (Metrogel Topical Gel) 1 appln HS TOP 12/29/16 21:00 01/08/17 20:59 12/29/16 21:27 1 APPLN Warfarin Sodium (Coumadin Tab) 15 mg TODAY@1600 PO 12/29/16 16:00 12/29/16 18:00 DC 12/29/16 16:44 15 MG Warfarin Sodium (Coumadin Tab) 2 mg TODAY@1600 PO 12/29/16 16:00 12/29/16 16:01 DC 12/29/16 16:44 2 MG Miscellaneous Information (Pending Order) 1 ea DAILY@10 N/A 12/30/16 10:00 01/29/17 09:59 12/30/16 10:26 1 EA Potassium Chloride (Klor-Con Tab) 40 meq NOW ONCE PO 12/30/16 08:00 12/30/16 08:21 DC 12/30/16 09:02 40 MEQ Current Inpatient Medications Current Inpatient Medications Medications (Trade) Dose Ordered Sig/Galindo Route Start Time Stop Time Status Last Admin Dose Admin Miscellaneous (Remove Transderm-Scop Patch) 1 ea Q72H N/A 01/01/17 06:00 01/01/17 06:01 Miscellaneous Information (Check Scopolamine Patch Placement) 1 ea QS N/A 12/29/16 16:00 01/01/17 05:59 12/30/16 07:37 1 EA Oxycodone HCl (Roxicodone Immediate Rel Tab) 1 TABLET FOR PAIN RATING... Q4H PRN PO 12/29/16 13:30 01/12/17 13:29 12/30/16 11:31 10 MG Morphine Sulfate (MoRPHine SULFATE INJ) 2 mg Q1H PRN IV 12/29/16 13:30 01/12/17 13:29 Acetaminophen (Tylenol Tab) 1,000 mg Q8 PO 12/29/16 16:00 01/28/17 13:29 12/30/16 06:07 1,000 MG Magnesium Hydroxide (Milk Of Magnesia Susp) 30 ml Q6H PRN PO 12/29/16 13:30 01/28/17 13:29 Bisacodyl (Dulcolax Supp) 10 mg DAILY PRN SD 12/29/16 13:30 01/28/17 13:29 Senna (Senokot Tab) 17.2 mg HS PO 12/29/16 21:00 01/28/17 20:59 12/29/16 21:27 17.2 MG Docusate Sodium (coLACE CAP) 100 mg BID PO 12/29/16 21:00 01/28/17 20:59 12/30/16 08:58 100 MG Diphenhydramine HCl (Benadryl Cap) 25 mg Q8H PRN PO 12/29/16 13:30 01/28/17 13:29 Diphenhydramine HCl (Benadryl Inj) 25 mg Q8H PRN IV 12/29/16 13:30 01/28/17 13:29 Al Hydrox/Mg Hydrox/Simethicone (Maalox Max Susp) 15 ml Q4H PRN PO 12/29/16 13:30 01/28/17 13:29 Zolpidem Tartrate (Ambien Tab) 5 mg HSZ PRN PO 12/29/16 13:30 01/28/17 13:29 Multivitamins (Multivitamin Tab) 1 tab QAM PO 12/30/16 09:00 01/29/17 08:59 12/30/16 08:57 1 TAB Ondansetron HCl (Zofran Inj) 4 mg Q6H PRN IV 12/29/16 13:30 01/28/17 13:29 Metoclopramide HCl (Reglan Inj) 10 mg Q6H PRN IV 12/29/16 13:30 01/28/17 13:29 Ferrous Gluconate (Ferrous Gluconate Tab) 324 mg TIDM PO 12/29/16 17:45 01/28/17 17:59 12/30/16 13:02 324 MG Pantoprazole Sodium (Protonix Tab) 40 mg QAM PO 12/30/16 09:00 01/29/17 08:59 12/30/16 08:59 40 MG Silver Sulfadiazine (Silvadene 1% Crm 50GM Jar) 1 appln BID PRN EXT 12/29/16 13:30 01/28/17 13:29 Tamsulosin HCl (Flomax Cap) 0.4 mg QAM PRN PO 12/29/16 13:30 01/28/17 13:29 Tapentadol (Nucynta Er Tab) 50 mg Q12 PO 12/29/16 21:00 01/28/17 20:59 12/30/16 08:57 50 MG Ketorolac Tromethamine (Toradol Inj) 30 mg Q6H IV. 12/29/16 16:00 12/31/16 13:29 12/30/16 10:23 30 MG Carvedilol (Coreg Tab) 3.125 mg BID PO 12/29/16 21:00 01/28/17 20:59 12/30/16 08:59 3.125 MG HCTZ/Lisinopril (Prinzide 20-25MG Tab) 1 tab BID PO 12/29/16 21:00 01/28/17 20:59 12/30/16 08:58 1 TAB Metronidazole HCl (Metrogel Topical Gel) 1 appln HS TOP 12/29/16 21:00 01/08/17 20:59 12/29/16 21:27 1 APPLN Enoxaparin Sodium (Lovenox Inj) 30 mg Q12 SQ 12/30/16 14:00 01/29/17 13:59 Miscellaneous Information (Pending Order) 1 ea DAILY@10 N/A 12/30/16 10:00 01/29/17 09:59 12/30/16 10:26 1 EA Warfarin Sodium (Coumadin Tab) 15 mg DAILY@16 ONCE PO 12/30/16 16:00 12/30/16 16:01 Review of Systems Constitutional: + fever Physical Exam Date Time Temp Pulse Resp B/P (MAP) Pulse Ox O2 Delivery O2 Flow Rate FiO2 12/30/16 11:58 36.9 92 24 170/110 (130) 97 Room Air 189/113 (138) 12/30/16 09:32 95 Room Air 12/30/16 07:56 37.1 76 24 162/90 (114) 95 Room Air 12/30/16 07:25 Room Air 12/30/16 03:47 36.8 76 18 160/85 (110) 96 Room Air 12/30/16 00:15 Room Air 12/29/16 23:35 36.8 72 18 175/81 (112) 96 Room Air 12/29/16 21:45 174/112 (132) 12/29/16 19:47 187/106 (133) 12/29/16 19:08 36.7 71 20 199/116 (143) 97 Room Air 12/29/16 17:06 36.6 72 20 187/100 (129) 95 Room Air 12/29/16 16:09 36.6 77 18 161/101 (121) 98 Nasal Cannula 1.0 12/29/16 15:49 Nasal Cannula 2.0 12/29/16 15:07 36.3 67 18 149/100 (116) 99 Nasal Cannula 3.0 12/29/16 14:15 Nasal Cannula 2.0 12/29/16 14:15 36.2 70 18 148/93 (111) 97 Nasal Cannula 2.0 12/29/16 14:10 36.4 62 18 157/89 98 Nasal Cannula 2 12/29/16 14:00 68 21 157/87 97 Nasal Cannula 2 12/29/16 13:50 71 22 140/86 96 Nasal Cannula 2 12/29/16 13:40 72 19 151/94 97 Nasal Cannula 2 12/29/16 13:33 37.5 79 12 141/88 94 Nasal Cannula 2 General Appearance: WD/WN, no apparent distress Head: normocephalic, atraumatic Eyes: normal inspection, EOMI, sclerae normal ENT: normal ENT inspection, hearing grossly normal, TMs normal, pharynx normal Neck: no JVD, trachea midline Respiratory/Chest: chest non-tender, lungs clear, normal breath sounds, no respiratory distress, no accessory muscle use Cardiovascular: regular rate, rhythm, no edema, no JVD Abdomen/GI: normal bowel sounds, non tender, soft Back: normal inspection, no muscle spasm Extremities/Musculoskelatal: no calf tenderness, normal capillary refill, no pedal edema, + pertinent finding (lower extremities in SCDs. ice pack over left leg) Neurologic/Psych: alert, normal mood/affect, oriented x 3 Skin: normal color, warm/dry, no rash Laboratory Results Last 24 Hours Test 12/30/16 06:37 White Blood Count 9.31 K/uL Red Blood Count 4.41 M/uL Hemoglobin 12.8 g/dL Hematocrit 38.4 % Mean Corpuscular Volume 87.1 fL Mean Corpuscular Hemoglobin 29.0 pg Mean Corpuscular Hemoglobin Concent 33.3 g/dl RDW Standard Deviation 42.4 fL RDW Coefficient of Variation 13.3 % Platelet Count 190 K/uL Mean Platelet Volume 10.3 fL Prothrombin Time 11.8 SECONDS Prothromb Time International Ratio 1.1 Sodium Level 139 mmol/L Potassium Level 3.4 mmol/L Chloride Level 104 mmol/L Carbon Dioxide Level 28 mmol/L Anion Gap 7.0 mmol/L Blood Urea Nitrogen 14 mg/dl Creatinine 0.88 mg/dl Est Creatinine Clear Calc Drug Dose 132.8 ml/min Estimated GFR () 116.1 Estimated GFR (Non- 100.2 BUN/Creatinine Ratio 15.5 Random Glucose 111 mg/dl Calcium Level 8.3 mg/dl Assessment & Plan s/p post-op on 12/29/16 Left total knee arthroplasty for Left knee degenerative joint disease Hypertension Patient reports that in the past he has tried amlodipine for blood pressure control however stopped because of pedal edema I have reviewed the patient's medical chart and discussed with the patient that because he is already on BID dosing of Lisinopril and HCTZ and that increasing carvedilol may affect that patient's heart rate, that it may be possible for the patient to take amlodipine in the short term. . Have informed the nurse about plans to give amlodipine 10 mg stat and monitor for urine output with bladder scan if needed Urination and bowel movements Patient also had not been making bowel movements and minimal urine output since surgery bladder scan if needed continue tamsulosin continue bowel regimen as patient on opioid pain medications Other Past Medical History Factor V Leiden Mutation with history of DVT in left lower extremity and pulmonary embolism in 1999 for which patient was on warfarin as outpatient prior to the left knee surgery Current DVT prophylaxis SCDs bilateral lower extremity, Lovenox 30 mg [id number] History of Rosacea on Metogel topical
[2016-12-30] MEDS ORDERED: AMLODIPINE BESYLATE 5 MG TAB PO ONE (13:45)
[2016-12-30] MEDS: ENOXAPARIN 30 MG/0.3 ML SYR SQ SCH ×2 (14:01→22:17)
[2016-12-30] MEDS ORDERED: WARFARIN SOD 5 MG TAB PO ONE (16:00)
[2016-12-30] MEDS ORDERED: HydrALAZINE HCL 20 MG/ML VIAL IV. STA (16:10)
[2016-12-30] MEDS: METRONIDAZOLE 0.75% TOPICAL GEL 45 GM TUBE TOP SCH (20:37)
[2016-12-30] MEDS: SENNA 8.6 MG TAB PO SCH (22:06)
[2016-12-30] MEDS: HydrALAZINE HCL 20 MG/ML VIAL IV. PRN (22:22)
[2016-12-31] MEDS: CHECK SCOPOLAMINE PATCH PLACEMENT SCH ×2 (00:25→08:15)
[2016-12-31] MEDS: KETOROLAC TROMETHAMINE 30 MG/ML VIAL IV. SCH ×2 (03:32→10:37)
[2016-12-31 04:35] VITALS: BP 177/82; PULSE 81
[2016-12-31] MEDS: HydrALAZINE HCL 20 MG/ML VIAL IV. PRN (04:44)
[2016-12-31] MEDS: ACETAMINOPHEN 500 MG TAB PO SCH ×2 (05:37→14:28)
[2016-12-31 05:40] VITALS: BP 152/94
[2016-12-31 05:58] LABS: INR 1.2 (0.9-1.1)
[2016-12-31 07:06] VITALS: BP 149/89; PULSE 76; TEMP 36.4; O2SAT 95
[2016-12-31] MEDS ORDERED: POTASSIUM CHLORIDE 20 MEQ TABCR PO ONE (07:30)
--- NOTE | 2016-12-31 07:32 | PROGRESS NOTE ---
DATE: 12/31/2016 SUBJECTIVE: This is a 51-year-old gentleman postop day 2 from a left knee replacement. He is doing pretty well. Pain is little bit better this morning. No chest pain or shortness of breath. Not feeling dizzy or lightheaded. OBJECTIVE: VITAL SIGNS: Temperature 36.4. Vital signs stable. Had some low to moderate level of hypertension. Seems a little bit better this morning. GENERAL: This is a pleasant middle-aged male. He is sitting up in bed, looks reasonably comfortable. EXTREMITIES: Examination of the left leg reveals the wound and the incision site to be clean, dry and intact. Some mild swelling. No significant drainage. Calf is soft and supple. He is neurologically intact. LABORATORY DATA: INR 1.2. Potassium is 3.2. ASSESSMENT: A 51-year-old gentleman postop day 2 from a left knee replacement, doing pretty well. Pain is reasonably well controlled. He has had some hypertension but seems to be getting a little bit better. Likely somewhat poor controlled on admission and then secondary to pain. PLAN: 1. DVT prophylaxis including thigh-high TEDs, SCDs, and back on Coumadin. On prophylactic Lovenox today. We will give him Lovenox today prophylactic doses and INR should be good by tomorrow. 2. PT and OT. Weight bear as tolerated. Left total knee protocol. 3. Pain control, doing reasonably well with current pain regimen. 4. Hypertension as per the medicine service. Further hypertension can be managed by Dr. Espino his primary care doctor as an outpatient. We will continue pain control. 5. Disposition: Plan to discharge to home. He is going to do outpatient therapy.
[2016-12-31] MEDS: FERROUS GLUCONATE 324 MG TAB PO SCH ×2 (08:15→12:23)
[2016-12-31] MEDS: PANTOprazole SOD 40 MG TAB PO SCH (08:19)
[2016-12-31] MEDS: MULTIVITAMIN TAB PO SCH (08:19)
[2016-12-31] MEDS ORDERED: AMLODIPINE BESYLATE 5 MG TAB PO SCH (09:00)
[2016-12-31] MEDS: DOCUSATE SODIUM 100 MG CAP PO SCH (09:07)
[2016-12-31] MEDS: CARVEDILOL 3.125 MG TAB PO SCH (09:08)
[2016-12-31] MEDS: LISINOPRIL/HCTZ 20/25MG TAB PO SCH (09:09)
[2016-12-31] MEDS: ENOXAPARIN 30 MG/0.3 ML SYR SQ SCH (09:10)
[2016-12-31] MEDS: TAPENTADOL ER 50 MG TABCR PO SCH (09:12)
[2016-12-31] MEDS: OXYCODONE HCL IR 5 MG TAB (IMMEDIATE RELEASE) PO PRN ×2 (10:37→14:47)
[2016-12-31] MEDS ORDERED: POTASSIUM CITRATE 10 MEQ TAB PO ONE (12:00)
[2016-12-31 12:01] VITALS: BP 149/89; PULSE 76; TEMP 36.4; O2SAT 95
[2016-12-31] MEDS ORDERED: WARFARIN SOD 5 MG TAB PO SCH (16:00)
== END 2016-12-31 15:03 | disposition home or self-care (01) | DRG 470 ==
LOC: C.ACU 08:21 → C.3E 08:30 → ENRESERV 14:04
PROVIDERS: ADMIT Orthopaedic Surgery Sports Medicine; ATTEND Orthopaedic Surgery Sports Medicine
PROC: 0SRD0J9 Replacement of Left Knee Joint with Synthetic Substitute, Cemented, Open Approach (ICD-10-PCS; principal; 2016-12-29 11:00)
DX: M17.12 Unilateral primary osteoarthritis, left knee (principal); D68.51 Activated protein C resistance; Z68.42 Body mass index [BMI] 45.0-49.9, adult; I10 Essential (primary) hypertension; E66.01 Morbid (severe) obesity due to excess calories; E87.6 Hypokalemia; Z98.890 Other specified postprocedural states; Z86.718 Personal history of other venous thrombosis and embolism; Z79.01 Long term (current) use of anticoagulants; Z79.899 Other long term (current) drug therapy; Z88.0 Allergy status to penicillin

== ENCOUNTER 2021-04-11 11:40 | Observation (INO) ==
--- NOTE | 2021-04-11 12:15 | Emergency Department Note ---
Impression & Plan Elevated troponin I level, Chest discomfort, Palpitation, Abnormal CXR ED Provider Note NAME: TONI MORA AGE: 56 SEX: M : 1965 ARRIVES VIA: Walk-In INFORMANT: Patient, ED PROVIDER(S): Wander Hopkins MD Chief Complaint: Palpitations HPI: Patient presents due to concern for palpitations states that this began yesterday. The patient states that he was not feeling well but when he was taking a shower he felt sort of a palpitations a central chest discomfort that was nonradiating but had associated clamminess and dizziness. Patient did also describe lightheadedness. Patient denies any movements of the chest discomfort but felt as though he could not really feel his heartbeat. Patient does have a history of DVT and is on Coumadin. No recent falls or trauma. The patient is vaccinated for COVID-19 including booster and denies any upper respiratory symptoms. The patient denies any abdominal pain decrease in eating or drinking. The patient states that he has also had increasing functional dyspnea and fatigue. Patient states he is compliant with his medications. Patient states he has no current symptoms while laying flat in the bed at this time. ROS: See HPI for pertinent positives and negatives. A total of 10 systems were reviewed and otherwise negative. Past medical history: See below Surgical history: See below Social history: See below Physical Exam: GENERAL: NAD, wearing glasses, wearing a mask, non-toxic. EYE EXAM: Normal conjunctiva. PERRL, no anisocoria and EOM's grossly intact w/o pain. NECK: Supple, no nuchal rigidity, no adenopathy, non-tender. No signs of menin gismus. LUNGS: Clear to auscultation. Normal chest wall mechanics. HEART: NSR, no MRG. ABDOMEN: Abdomen soft, non-tender, normo-active bowel sounds, no masses, no rebound or guarding. BACK: No CVA TTP. SKIN: No rashes and no bruising. UPPER EXTREMITIES: Upper extremities are grossly normal. LOWER EXTREMITIES: Grossly normal, no edema. Left greater than right lower extremity edema, well-healed incisional scars over the left lower extremity. No calf pain. NEURO EXAM: A&O x3, cranial nerves II-XII grossly intact, normal speech, moves all 4 extremities on command w/o issue. Good finger to nose, no drift, no sensory deficits. Differential diagnoses: Premature contractions, electrolyte abnormality, cardiac dysrhythmia, thyroid dysfunction, pulmonary embolism, infection, gastrointestinal, as well as other pathologies. Course: Patient was seen and evaluated the bedside. Full history physical exam was performed. EKG interpreted by me Normal sinus rhythm, rate of 88, normal intervals, right axis deviation, right axis appears to be old from comparison EKG December 04, 2019. Imaging Studies: See Below Cardiac monitoring: An order was placed for continuous cardiac monitoring. The monitor shows a rate of 78 with sinus rhythm. MDM: Patient was seen due to concern for palpitations lightheadedness and dizziness. Patient denies any current chest discomfort or symptoms at this time. Blood work is obtained along with an EKG troponin chest x-ray and coags. Patient has a normal white count H&H and platelet count. The patient's kidney function is unremarkable but with some prerenal azotemia. Patient's initial troponin was 0.06. Covid negative. The patient is therapeutic on his INR at 2.8. The patient's chronic left lower extremity swelling is chronic in nature. Patient's chest x-ray does show prominent mediastinal contour overlying the left hilum and the chest CT is recommended. Given the patient's initial troponin of being 0.06 believe the patient would benefit from admission and observation and treatment. The patient is asymptomatic at this time. I did speak the on-call hospitalist Dr. Brand who recommended trending his enzymes. Does not believe that heparin needs to be started at this moment. Patient does have mild transaminitis. Covid negative. I did speak to the on-call hospitalist Dr. Gilbert and patient was admitted to the medicine service. I did convey the CT of the chest being recommended to the inpatient team. This was deferred to the inpatient team. Past Med/Surg History Medical History Deep vein thrombosis DVT (deep venous thrombosis) H/O: HTN (hypertension) Surgical History Hx of total knee arthroplasty Social History Smoking Status: Never smoker Tobacco Type: Cigars Hx Alcohol Use: No Hx Substance Use: No Preferred Language: Italian Communication Ability: Effective Blending Tank Helper Required: No Beliefs That Will Affect Care: None Current Living Situation: Spouse and Family Other Information That Helps Us Care for You: No Feels Safe at Home: Yes Safety Concerns: Feels Safe At This Time Assistive Devices: CPAP Immunizations: Vaccinated for COVID-19 Allergies Allergies Allergy/AdvReac Type Severity Reaction Status Date / Time Penicillins Allergy Unknown unable to Verified 04/11/21 14:30 recall Home Meds Home Medications Medication Instructions Recorded Confirmed celecoxib 100 mg capsule (Celebrex) 100 mg PO BID PRN #0 cap 11/19/16 04/11/21 lisinopril 20 1 tab PO BID #0 tab 11/19/16 04/11/21 mg-hydrochlorothiazide 25 mg tablet (Zestoretic) multivitamin 1 tab PO DAILY #0 tab 11/19/16 04/11/21 warfarin 10 mg tablet 10 mg PO SUN,TU,W,TH,F,SA 90 Days 11/19/16 04/11/21 #0 tab warfarin 5 mg tablet 15 mg PO UD 90 Days #0 tab 11/19/16 04/11/21 buspirone 5 mg tablet 5 mg PO DAILY 04/11/21 04/11/21 carvedilol 25 mg tablet 25 mg PO BID 04/11/21 04/11/21 escitalopram oxalate 20 mg tablet 20 mg PO DAILY 04/11/21 04/11/21 spironolactone 25 mg tablet 25 mg PO DAILY 04/11/21 04/11/21 Results & Data (ED) Vital Signs Vital Signs - 24 hr 04/11/21 11:41 04/11/21 11:43 04/11/21 11:59 Temperature 36.4 C L Temperature Source Temporal Artery Scan Pulse Rate 82 83 Pulse Rate from SpO2 Sensor 83 Respiratory Rate 18 23 Respiratory Effort / Characteristics Non-Labored Respiratory Depth Normal Respiratory Pattern Regular Blood Pressure 131/83 Blood Pressure Mean 99 Pulse Oximetry 94 96 Oxygen Delivery Method Room Air Room Air Sepsis Recent Fever Within 48 Hours No Sepsis New/Unexplained Change in Mental Status No Sepsis Action Taken by Nursing No Action Required 04/11/21 12:00 04/11/21 12:06 04/11/21 12:10 Temperature Temperature Source Pulse Rate 78 79 76 Pulse Rate from SpO2 Sensor 79 80 76 Respiratory Rate 21 19 29 H Respiratory Effort / Characteristics Respiratory Depth Respiratory Pattern Blood Pressure 143/90 H Blood Pressure Mean 107 Pulse Oximetry 96 97 94 Oxygen Delivery Method Sepsis Recent Fever Within 48 Hours Sepsis New/Unexplained Change in Mental Status Sepsis Action Taken by Nursing 04/11/21 12:20 04/11/21 12:30 04/11/21 12:40 Temperature Temperature Source Pulse Rate 74 72 73 Pulse Rate from SpO2 Sensor 74 73 73 Respiratory Rate 23 26 H 25 H Respiratory Effort / Characteristics Respiratory Depth Respiratory Pattern Blood Pressure 130/99 Blood Pressure Mean 109 Pulse Oximetry 94 94 94 Oxygen Delivery Method Sepsis Recent Fever Within 48 Hours Sepsis New/Unexplained Change in Mental Status Sepsis Action Taken by Nursing 04/11/21 12:50 04/11/21 13:00 04/11/21 13:10 Temperature Temperature Source Pulse Rate 70 83 72 Pulse Rate from SpO2 Sensor 70 81 72 Respiratory Rate 21 23 24 Respiratory Effort / Characteristics Respiratory Depth Respiratory Pattern Blood Pressure 146/87 H Blood Pressure Mean 106 Pulse Oximetry 94 94 95 Oxygen Delivery Method Sepsis Recent Fever Within 48 Hours Sepsis New/Unexplained Change in Mental Status Sepsis Action Taken by Nursing 04/11/21 13:20 04/11/21 13:30 04/11/21 13:40 Temperature Temperature Source Pulse Rate 68 72 68 Pulse Rate from SpO2 Sensor 67 75 69 Respiratory Rate 25 H 21 28 H Respiratory Effort / Characteristics Respiratory Depth Respiratory Pattern Blood Pressure 164/100 H Blood Pressure Mean 121 Pulse Oximetry 96 96 96 Oxygen Delivery Method Sepsis Recent Fever Within 48 Hours Sepsis New/Unexplained Change in Mental Status Sepsis Action Taken by Nursing 04/11/21 13:50 04/11/21 14:00 04/11/21 14:01 Temperature Temperature Source Pulse Rate 70 69 81 Pulse Rate from SpO2 Sensor 70 69 80 Respiratory Rate 28 H 24 28 H Respiratory Effort / Characteristics Respiratory Depth Respiratory Pattern Blood Pressure 150/114 H Blood Pressure Mean 126 Pulse Oximetry 95 94 96 Oxygen Delivery Method Sepsis Recent Fever Within 48 Hours Sepsis New/Unexplained Change in Mental Status Sepsis Action Taken by Nursing 04/11/21 14:10 04/11/21 14:20 Temperature Temperature Source Pulse Rate 75 67 Pulse Rate from SpO2 Sensor 74 67 Respiratory Rate 29 H 20 Respiratory Effort / Characteristics Respiratory Depth Respiratory Pattern Blood Pressure Blood Pressure Mean Pulse Oximetry 96 96 Oxygen Delivery Method Sepsis Recent Fever Within 48 Hours Sepsis New/Unexplained Change in Mental Status Sepsis Action Taken by Longterm Medications Current Medication List: was personally reviewed by me Laboratory Data Attestation: I reviewed the patient's lab results. Result diagrams: 04/11/21 12:04 04/11/21 12:04 Lab Results 04/11/21 04/11/21 04/11/21 Range/Units 12:04 12:04 12:04 WBC 9.62 (4.8-10.8) K/uL RBC 4.95 (4.7-6.1) M/uL Hgb 15.1 (14.0-18.0) g/dL Hct 44.9 (42-52) % MCV 90.7 (80-100) fL MCH 30.5 (25-34) pg MCHC 33.6 (32-36) g/dL RDW Std Deviation 44.5 (36.4-46.3) fL RDW Coeff of Lisha 13.5 (11.5-14.5) % Plt Count 236 (130-400) K/uL MPV 11.2 H (7.4-10.4) fL Immature Gran % (Auto) 0.1 % Neut % (Auto) 74.4 % Lymph % (Auto) 14.0 % [place] % (Auto) 10.3 % Eos % (Auto) 1.0 % Baso % (Auto) 0.2 % Neut # (Auto) 7.15 H (1.4-6.5) K/uL Lymph # (Auto) 1.35 (1.2-3.4) K/uL [place] # (Auto) 0.99 H (0.11-0.59) K/uL Eos # (Auto) 0.10 (0-0.5) K/uL Baso # (Auto) 0.02 (0-0.2) K/uL Immature Gran # (Auto) 0.01 (0.00-0.02) K/uL PT 25.8 H (9.0-12.0) Seconds INR 2.8 H (0.9-1.1) APTT 44.0 H (21.0-31.0) Seconds PTT Ratio 1.7 Sodium 139 (136-145) mmol/L Potassium 3.7 (3.5-5.1) mmol/L Chloride 103 (98-107) mmol/L Carbon Dioxide 26 (21-32) mmol/L Anion Gap 10 (3-11) BUN 29 H (6-23) mg/dl Creatinine 1.06 (0.6-1.4) mg/dl Est Cr Clr Drug Dosing 112.3 ml/min Est GFR ( Amer) 91.1 ml/min Est GFR (Non-Af Amer) 78.6 ml/min BUN/Creatinine Ratio 27.4 H (10-20) Glucose 147 H (70-99(Fasting)) mg/dl Calcium 9.0 (8.5-10.1) mg/dl Total Bilirubin 0.4 (0.2-1.0) mg/dl AST 82 H (13-39) U/L ALT 145 H (7-52) U/L Alkaline Phosphatase 45 (34-104) U/L Troponin I 0.06 H* (0-0.04) ng/ml Total Protein 6.7 (6.0-8.3) gm/dl Albumin 4.3 (3.4-5.0) gm/dl Globulin 2.4 L (2.5-4.0) gm/dl Albumin/Globulin Ratio 1.8 (0.9-2) Lipase 27 (11-82) U/L SARS-CoV-2, RNA, NAAT (NEGATIVE) 04/11/21 Range/Units 12:58 WBC (4.8-10.8) K/uL RBC (4.7-6.1) M/uL Hgb (14.0-18.0) g/dL Hct (42-52) % MCV (80-100) fL MCH (25-34) pg MCHC (32-36) g/dL RDW Std Deviation (36.4-46.3) fL RDW Coeff of Lisha (11.5-14.5) % Plt Count (130-400) K/uL MPV (7.4-10.4) fL Immature Gran % (Auto) % Neut % (Auto) % Lymph % (Auto) % [place] % (Auto) % Eos % (Auto) % Baso % (Auto) % Neut # (Auto) (1.4-6.5) K/uL Lymph # (Auto) (1.2-3.4) K/uL [place] # (Auto) (0.11-0.59) K/uL Eos # (Auto) (0-0.5) K/uL Baso # (Auto) (0-0.2) K/uL Immature Gran # (Auto) (0.00-0.02) K/uL PT (9.0-12.0) Seconds INR (0.9-1.1) APTT (21.0-31.0) Seconds PTT Ratio Sodium (136-145) mmol/L Potassium (3.5-5.1) mmol/L Chloride (98-107) mmol/L Carbon Dioxide (21-32) mmol/L Anion Gap (3-11) BUN (6-23) mg/dl Creatinine (0.6-1.4) mg/dl Est Cr Clr Drug Dosing ml/min Est GFR ( Amer) ml/min Est GFR (Non-Af Amer) ml/min BUN/Creatinine Ratio (10-20) Glucose (70-99(Fasting)) mg/dl Calcium (8.5-10.1) mg/dl Total Bilirubin (0.2-1.0) mg/dl AST (13-39) U/L ALT (7-52) U/L Alkaline Phosphatase (34-104) U/L Troponin I (0-0.04) ng/ml Total Protein (6.0-8.3) gm/dl Albumin (3.4-5.0) gm/dl Globulin (2.5-4.0) gm/dl Albumin/Globulin Ratio (0.9-2) Lipase (11-82) U/L SARS-CoV-2, RNA, NAAT NEGATIVE (NEGATIVE) Administered Medications Discontinued Medications Aspirin (Aspirin Chew 324 Mg) 324 mg PO NOW STA Stop: 04/11/21 13:16 Last Admin: 04/11/21 13:23 Dose: 324 mg Documented by: [id number] Sodium Chloride (Nss) 500 mls @ 999 mls/hr IV .Q31M STA Stop: 04/11/21 13:16 Last Admin: 04/11/21 13:20 Dose: 999 mls/hr Documented by: [id number] Imaging Data Radiologist's Impression: Chest X-Ray 04/11/21 12:46 XR chest 1V portable CLINICAL HISTORY: Chest Pain COMPARISON STUDY: No previous studies for comparison. FINDINGS: Lung volumes are normal. There is no pneumothorax or pleural effusion. Linear left basilar opacity favors atelectasis or scarring. Cardiomegaly is unchanged. Note is made of a prominent left mediastinal contour overlying the left hilum. This is new since prior exam. IMPRESSION: 1. Prominent left mediastinal contour overlying the left hilum. This may represent pulmonary vessels however lymphadenopathy or a mass could appear similar. A chest CT with contrast is recommended. 2. Cardiomegaly. No evidence for pulmonary edema. ACT 112: Negative or not required by law. Electronically signed by: Parish Singleton M.D. 04/11/2021 1:24 PM Discharge Plan Visit Data Chief Complaint: Shortness of Breath/Dyspnea Stated Complaint: CHEST PAIN, SOB ED Provider: Wander Hopkins Discharge Problem: Elevated troponin I level, Chest discomfort, Palpitation, Abnormal CXR Patient Disposition: Admitted As Inpatient Discharge Instructions Interventions: ED Discharge Assessment Last Done: 04/11/21 15:50
[2021-04-11] MEDS ORDERED: SODIUM CHLORIDE 0.9% 500 ML IV STA (12:46)
[2021-04-11 12:56] LABS: Basophils # (auto) 0.02 K/uL (0-0.2); Basophils % (auto) 0.2 %; Hematocrit (blood only) 44.9 % (42-52); Hemoglobin 15.1 g/dL (14.0-18.0); Immature Granulocytes # (auto) 0.01 K/uL (0.00-0.02); Immature Granulocytes % (auto) 0.1 %; Lymphocytes # (auto) 1.35 K/uL (1.2-3.4); Mean Corpuscular Hemoglobin 30.5 pg (25-34); Mean Corpuscular Hgb Conc 33.6 g/dL (32-36); Mean Corpuscular Volume 90.7 fL (80-100); Mean Platelet Volume 11.2 fL (7.4-10.4); Monocytes # (auto) 0.99 K/uL (0.11-0.59); Monocytes % (auto) 10.3 %; Neutrophils # (auto) 7.15 K/uL (1.4-6.5); Neutrophils % (auto) 74.4 %; Platelet Count 236 K/uL (130-400); RDW Coefficient of Variation 13.5 % (11.5-14.5); RDW Standard Deviation 44.5 fL (36.4-46.3); Red Blood Count 4.95 M/uL (4.7-6.1); White Blood Count 9.62 K/uL (4.8-10.8)
[2021-04-11 13:05] LABS: INR 2.8 (0.9-1.1); Partial Thromboplastin Ratio 1.7; Prothrombin Time 25.8 Seconds (9.0-12.0)
[2021-04-11 13:14] LABS: Albumin Globulin Ratio 1.8 (0.9-2); Albumin Level 4.3 gm/dl (3.4-5.0); BUN Creatinine Ratio 27.4 (10-20); Bilirubin,Total 0.4 mg/dl (0.2-1.0); Creatinine Clr Calc Pharmacy 112.3 ml/min; Est GFR (African American) 91.1 ml/min; Est GFR (Non-African American) 78.6 ml/min; Globulin 2.4 gm/dl (2.5-4.0); Potassium 3.7 mmol/L (3.5-5.1); Total Protein 6.7 gm/dl (6.0-8.3)
[2021-04-11] MEDS ORDERED: ASPIRIN CHEW 324 MG PO STA (13:15)
[2021-04-11 13:16] LABS: Troponin I 0.06 ng/ml (0-0.04)
--- NOTE | 2021-04-11 13:25 | XRay Report ---
XR chest 1V portable CLINICAL HISTORY: Chest Pain COMPARISON STUDY: No previous studies for comparison. FINDINGS: Lung volumes are normal. There is no pneumothorax or pleural effusion. Linear left basilar opacity favors atelectasis or scarring. Cardiomegaly is unchanged. Note is made of a prominent left m ediastinal contour overlying the left hilum. This is new since prior exam. IMPRESSION: 1. Prominent left mediastinal contour overlying the left hilum. This may represent pulmonary vessels however lymphadenopathy or a mass could appear similar. A chest CT with contrast is recommended. 2. Cardiomegaly. No evidence for pulmonary edema. ACT 112: Negative or not required by law. Electronically signed by: Parish Singleton M.D. 04/11/2021 1:24 PM
--- NOTE | 2021-04-11 14:40 | Electrocardiogram Report ---
Test Reason : Blood Pressure : / mmHG Vent. Rate : 088 BPM Atrial Rate : 088 BPM P-R Int : 154 ms QRS Dur : 096 ms QT Int : 348 ms P-R-T Axes : 065 100 053 degrees QTc Int : 421 ms Normal sinus rhythm Possible Left atrial enlargement Rightward axis Borderline ECG When compared with ECG of 04-DEC-2019 13:08, Premature ventricular complexes are no longer Present Confirmed by Samir Hameed ([id number]) on 04/11/2021 2:40:32 PM Referred By: Confirmed By:Lorenzo Hameed
--- NOTE | 2021-04-11 15:58 | Cardiology Consultation ---
Date of Consultation April 11, 2021 Assessment & Plan (1) Elevated troponin I level: (2) Chest discomfort: (3) Palpitation: (4) Near syncope: (5) Abnormal CXR: 56-year-old patient presents to the emergency department with palpitations, chest discomfort, and near syncope. Near syncopal symptoms possibly vasovagal origin. Minimally elevated troponin noted without ECG evidence of ischemia. Will trend enzymes x3 sets. He is anticoagulated with warfarin chronically due to history of DVT PE. No indication for IV heparin currently. 2D transthoracic echocardiogram will be performed for assessment of LV and RV function. Chest x-ray demonstrating left mediastinal contour overlying the left hilum. CT of the chest with contrast is recommended for further evaluation to exclude lymphadenopathy. In regard to patient's chest discomfort, dyspnea on exertion, and minimally elevated troponin, further ischemic evaluation is warranted. Symptoms likely multifactorial secondary to obesity, deconditioning, prior pulmonary embolus and mild volume overload / diastolic heart failure. Decision regarding stress testing versus coronary angiography to be determined as clinical course progresses. Continue telemetry monitoring during hospitalization. History of Present Illness Reason for Consultation: chest discomfort, elevated troponin Requesting Physician: Dr. Gilbert Attending Physician: Dr. Gilbert History of Present Illness 56-year-old patient presented emergency department due to palpitations, lightheadedness, central chest discomfort, and near syncope. Patient had been taking a shower when he began to feel chest discomfort, palpitations, and lightheaded. Symptoms resolved with rest. Over the past few days he has noted significant fatigue with minimal exertion. Feels function capacity has declined significantly. Denies exertional chest discomfort or heaviness. Denies orthopnea, PND, or lower extremity edema. No recent weight gain, focal weakness, visual changes, or slurred speech. No fevers, chills, sick contacts, dysuria, urinary frequency, hematuria, cough, or sore throat. Denies any sick contacts. Appetite is normal without nausea, vomiting, or diarrhea. Carries history of pulmonary embolus and factor V Leiden mutation dating back nearly 20 years. He has been anticoagulated with Coumadin during that timeframe. INR is therapeutic on admission. ECG stable and unchanged compared to previous. No ischemic changes. His troponin is minimally elevated 0.06ng/ml. Currently patient is resting comfortably. Denies chest pain or shortness of breath at rest. Reports his left lower extremity is chronically larger than his right due to history of DVT. There are stasis changes noted. Denies personal history of diabetes, congestive heart failure, coronary artery disease, peripheral vascular disease, or rheumatic fever as a child. Allergies Allergy/AdvReac Type Severity Reaction Status Date / Time Penicillins Allergy Unknown unable to Verified 04/11/21 14:30 recall Home Medications Medication Instructions Recorded Confirmed Type celecoxib 100 mg capsule (Celebrex) 100 mg PO BID PRN #0 cap 11/19/16 04/11/21 H istory lisinopril 20 1 tab PO BID #0 tab 11/19/16 04/11/21 History mg-hydrochlorothiazide 25 mg tablet (Zestoretic) multivitamin 1 tab PO DAILY #0 tab 11/19/16 04/11/21 History warfarin 10 mg tablet 10 mg PO SUN,,W,TH,F,SA 90 Days 11/19/16 04/11/21 History #0 tab warfarin 5 mg tablet 15 mg PO UD 90 Days #0 tab 11/19/16 04/11/21 History buspirone 5 mg tablet 5 mg PO TID 04/11/21 04/11/21 History carvedilol 25 mg tablet 25 mg PO BID 04/11/21 04/11/21 History escitalopram oxalate 20 mg tablet 20 mg PO DAILY 04/11/21 04/11/21 History spironolactone 25 mg tablet 25 mg PO DAILY 04/11/21 04/11/21 History Patient History Medical History Deep vein thrombosis DVT (deep venous thrombosis) H/O: HTN (hypertension) Surgical History Hx of total knee arthroplasty Social History Smoking Status: Never smoker Tobacco Type: Cigars Hx Alcohol Use: No Hx Substance Use: No Preferred Language: [place] Communication Ability: Effective Telex Operator Required: No Beliefs That Will Affect Care: None marital status: Current Living Situation: Spouse and Family How many Children do You have: 1 Other Information That Helps Us Care for You: No Feels Safe at Home: Yes Safety Concerns: Feels Safe At This Time Assistive Devices: CPAP Review of Systems Review of Systems: All systems reviewed & are unremarkable except as noted in Subjective Physical Exam Constitutional: well nourished and + obese; no acute distress Respiratory: no respiratory distress, no labored breathing, no retractions and does not use accessory muscles Auscultation: lungs clear to auscultation bilaterally; no rales and no rhonchi Cardiovascular: Rate/Rhythm: regular rate and regular rhythm Heart Sounds: normal S1 and normal S2; no murmur Vessels: radial pulses present; no JVD and no carotid bruit Extremities: no edema Gastrointestinal (Abdomen): Inspection/Auscultation: abdomen normal to inspection and normal bowel sounds; abdomen not distended Percussion/Palpat ion: abdomen soft; abdomen nontender, no guarding and abdomen not rigid Neurologic: CN's II-XI intact bilaterally and moves all extremities; no focal motor deficits Motor/Sensory: no tremor Psychiatric: A+Ox3, euthymic affect Results & Data ([facility]) Vital Signs (Past 12 Hours) Vital Signs Temp Pulse Resp BP Pulse Ox 04/11/21 14:40 66 23 96 04/11/21 14:30 64 22 134/85 95 04/11/21 14:20 67 20 96 04/11/21 14:10 75 29 H 96 04/11/21 14:01 81 28 H 150/114 H 96 04/11/21 14:00 69 24 94 04/11/21 13:50 70 28 H 95 04/11/21 13:40 68 28 H 96 04/11/21 13:30 72 21 164/100 H 96 04/11/21 13:20 68 25 H 96 04/11/21 13:10 72 24 95 04/11/21 13:00 83 23 146/87 H 94 04/11/21 12:50 70 21 94 04/11/21 12:40 73 25 H 94 04/11/21 12:30 72 26 H 130/99 94 04/11/21 12:20 74 23 94 04/11/21 12:10 76 29 H 94 04/11/21 12:06 79 19 143/90 H 97 04/11/21 12:00 78 21 96 04/11/21 11:59 83 23 96 04/11/21 11:43 36.4 C L 82 18 131/83 94
--- NOTE | 2021-04-11 16:11 | History and Physical Report ---
DATE OF ADMISSION: 04/11/2021. CHIEF COMPLAINT: Chest pain. HISTORY OF PRESENT ILLNESS: A 56-year-old male with past medical history significant for obstructive sleep apnea, on CPAP, hypertension, morbid obesity, factor V Leiden mutation, history of DVT and PE, on long-term Coumadin, history of dysplastic nevus, anxiety who presents with chest pain. The patient yesterday while showering felt chest tightness and palpitations and dizzy and clammy and also later when he was doing the dishes, also he felt a similar kind of feeling. Today, when he woke up with minimal exertion, he is having similar palpitations, chest discomfort, clammy, and dizziness, which prompted him to come to the ER. Lately, he is also noticing more easy fatigue on minimal efforts. Currently, he is resting comfortably, hemodynamically stable, asymptomatic. Denies any headache. No blurred visions, no earache, no runny nose, no sore throat, no cough, no fever, no chills, no nausea, no abdominal pain. Normal bowel and bladder movements. Denies blood in stools or black stools. Has some swelling in the legs. The patient has a history of DVT in the past. ALLERGIES: PENICILLINS. PAST MEDICAL HISTORY: As mentioned above. PAST SURGICAL HISTORY: Colonoscopy, knee arthroscopy, tonsillectomy, repair of inguinal hernia. MEDICATIONS: The patient is on warfarin 10 mg on Wednesday, Wednesday, Wednesday, , Wednesday, and Wednesday and warfarin 15 mg on other day. Spironolactone 25 mg p.o. daily, multivitamin 1 tablet p.o. daily, lisinopril/hydrochlorothiazide 20/25 mg p.o. daily, Lexapro 20 mg p.o. daily, Celebrex 100 mg p.o. b.i.d. p.r.n., Coreg 25 mg p.o. b.i.d., buspirone 5 mg p.o. daily. FAMILY HISTORY: Significant for father had factor V Leiden deficiency, prostate cancer, heart disorder; mother has heart disorder; brother has Crohn's disease. SOCIAL HISTORY: , no smoking. Alcohol socially. No drug use. REVIEW OF SYSTEMS: As per HPI. Rest of review of systems is negative. PHYSICAL EXAMINATION: GENERAL: The patient is morbidly obese, not in acute distress. VITAL SIGNS: Temperature 36.4, pulse 78, respiratory rate 21, blood pressure 131/83, oxygen 96% on room air. HEENT: Pupils equal, round and reactive to light. Oral mucosa moist. NECK: No JVD, no neck masses. CARDIOVASCULAR: S1 and S2 heard. Regular rate and rhythm. No murmur, no gallop. RESPIRATORY SYSTEM: Normal AP diameter. No accessory muscle use. No wheezing, no crackles. ABDOMEN: Soft, bowel sounds present, nontender, no distention. CENTRAL NERVOUS SYSTEM: Cranial nerves II-XII grossly intact, nonfocal. EXTREMITIES: Bilateral lower extremities, mild edema present, no erythema seen. LABORATORY DATA: WBC 9.6, hemoglobin 15.1, hematocrit 44.9, platelets 236. PT 25.8, INR 2.8, APTT 44. Sodium 139, potassium 3.7, chloride 103, bicarb 26, BUN 29, creatinine 1.06, serum glucose 147, calcium 9, total bilirubin 0.4, AST 82, ALT 145, alkaline phosphatase 45. Troponin I of 0.06. Lipase 27. SARS-CoV-2 RNA negative. IMAGING DATA: Chest x-ray: Prominent left hilum that may represent pulmonary vessels; however, lymphadenopathy or mass could appear similar. Chest CT with contrast is recommended. ASSESSMENT AND PLAN: This 56-year-old male presents with chest pain. 1. Chest pain: Probably unstable angina versus non-ST elevated myocardial infarction. The patient is having chest pain with minimal exertion, has risk factors of sleep apnea, morbid obesity, hypertension. Troponin is mildly elevated at 0.06. The patient is already on Coumadin. INR is 2.8. We will follow serial enzymes, echocardiogram. Monitor in the telemetry floor, n.p.o. and consult cardiology for possible cardiac catheterization. 2. Sleep apnea: On CPAP at bedtime. 3. History of hypertension: Continue his lisinopril/hydrochlorothiazide, Coreg, spironolactone. We will monitor the blood pressure. 4. History of deep venous thrombosis/pulmonary embolism, history of factor V Leiden mutation: The patient is on Coumadin. INR 2.8. We will follow the repeat INR. 5. Morbid obesity: Needs counseling. 6. Anxiety: Continue with buspirone and Lexapro. 7. Chest xra findings. Lymphadenopathy vs lung mass. Will follow ct chest. 8. Deep venous thrombosis prophylaxis: On Coumadin. INR is therapeutic. DISPOSITION: Closely monitor in the tele floor. Level 1, full code. Expect to discharge home and follow with family doctor. Job ID: [id number] MTDD
[2021-04-11] MEDS ORDERED: ONDANSETRON INJ 2 MG/ML 2 ML VIAL IV PRN (17:14)
[2021-04-11] MEDS ORDERED: NITROGLYCERIN SL 0.4 MG/TAB TAB SL PRN (17:14)
[2021-04-11] MEDS ORDERED: ACETAMINOPHEN 325 MG TAB PO PRN (17:14)
[2021-04-11] MEDS ORDERED: SODIUM CHLORIDE 0.9% 1000ML 1,000 ML IV SCH (18:00)
[2021-04-11] MEDS: ATORVASTATIN 40 MG TAB PO SCH (18:28)
[2021-04-11] MEDS ORDERED: OPTIRAY 320 125ml IV ONE (19:41)
--- NOTE | 2021-04-11 19:57 | CT Scan Report ---
CHEST CT WITH CONTRAST CT DOSE: 1075.33 mGy.cm HISTORY: Abnormal chest x-ray. Follow-up. cxr finings- lymphdenopathy or lung mass TECHNIQUE: Multiaxial CT images of the chest were performed following the intravenous administration of contrast. A dose lowering technique was utilized adhering to the principles of ALARA. COMPARISON: Chest x-ray 04/11/2021. FINDINGS: Lobular low-density lymph nodes/mass seen within the left prevascular space anterior to the left hilum. This corresponds the chest x-ray abnormality. In conglomerate these measure approximatel y 6.0 x 3.0 x 2.6 cm. This favors enlarged lymph nodes. An anterior mediastinal mass could also have a similar appearance. There are few prominent right hilar lymph nodes. Dominant right hilar lymph nod e measures 18 x 12 mm and is best seen image 145. No axillary or upper abdominal lymphadenopathy iden tified. Limited views of the upper abdomen demonstrate hepatic steatosis and a 12 mm hypodense focus within the splenic dome. Normal right adrenal gland. There is a 15 mm fat-containing lesion within th e left adrenal gland consistent with a benign myelolipoma. Visualized thyroid gland enhances normally . Normal caliber esophagus. The heart is top normal in size. No pleural or pericardial effusions. Nor mal caliber thoracic aorta with no evidence for dissection. The main pulmonary arteries are patent. N o suspicious lytic or blastic osseous lesions. No pneumothorax. The central airways are patent. A few linear scarlike densities at the left lung base. No focal lung consolidations to suggest pneumonia. No evidence for pulmonary edema. There are few scattered punctate calcified granulomas seen within th e lungs. There is a 4 mm subpleural nodule within the right lower lobe in image 179. IMPRESSION: 1. Lobular low density lymph nodes/mass within the left prevascular space anterior to the left hilum which measures approximate 6.0 x 3.0 x 2.6 cm. This favors enlarged lymph nodes. Tissue diagnosis is recommended to exclude the possibility of a neoplastic process such as lymphoma. 2. There is also mild right hilar lymphadenopathy. 3. The steatosis. 4. A 12 mm indeterminate hypodense focus at the splenic dome. This may be due to the timing of contra st rather than a splenic lesion. 5. A 4 mm indeterminate pulmonary nodule within the right lower lobe. Please refer to below summary of Fleischner criteria recommendations for follow-up of incidental CT n odules (Eunice Reilly, Guidelines for management of small pulmonary nodules detected on CT scans: A sta tement from the Fleischner Society, Radiology 237: 446-760 1984.) SOLID NODULES Solitary nodule size: <6 mm * Low risk patients: no follow-up needed * high risk patients: optional CT at 12 months Solitary nodule size: 6-8 mm * Low risk patients: follow-up at 6-12 months, then consider further follow-up at 18-24 months * high risk patients: initial follow-up CT at 6-12 months and then at 18-24 months if no change Solitary nodule size: >8 mm * either low or high risk patients - consider follow-up CT at 3 months, and/or CT-PET, and/or biopsy Multiple nodules size: <6 mm * Low risk patients: no routine follow-up * high risk patients: optional CT at 12 months Multiple nodules size: 6-8 mm * Low risk patients: follow-up at 3-6 months, then consider further follow-up at 18-24 months * high risk patients: follow-up at 3-6 months, then at 18-24 months if no change Multiple nodules size: >8 mm * Low risk patients: follow-up at 3-6 months, then consider further follow-up at 18-24 months * high risk patients: follow-up at 3-6 months, then at 18-24 months if no change Note: newly detected indeterminate nodule in persons 35 years of age or older. * Low risk patients: minimal or absent history of smoking and/or other known risk factors * high risk patients: history of smoking or of other known risk factors (e.g. first degree relative with lung cancer, or exposure to asbestos, radon, uranium) * if a nodule up to 8 mm is partly solid or is ground glass further follow-up is required after 24 m onths to exclude possible slow growing adenocarcinoma (LAI) SUBSOLID NODULES Solitary pure ground-glass nodule * nodule size <6 mm - no CT follow-up required * nodule size >=6 mm - follow-up CT at 6-12 months, then every 2 years until 5 years Solitary part-solid nodule * nodule size <6 mm - no CT follow-up required * nodule size >=6 mm - follow-up CT at 3-6 months. If unchanged, and solid component remains <6 mm, then annual follow-up for 5 years Multiple subsolid nodules * nodule size <6 mm - follow-up CT at 3-6 months, consider further follow-up at 2 and 4 years if sta ble * nodule size >=6 mm - follow-up CT at 3-6 months, subsequent management based on the most suspiciou s nodule(s) ACT 112: Positive. There are findings on this exam that require communication between the performing entity and the patient following Patient Test Result Information Act ([place] Act 112) guidelines. Electronically signed by: Mark Stephenson M.D. 04/11/2021 7:55 PM
[2021-04-11] MEDS: carvediloL 25 MG TAB PO SCH (20:29)
[2021-04-11] MEDS: LISINOPRIL/HCTZ 20/25MG 1 TAB PO SCH (20:29)
[2021-04-11] MEDS: busPIRone 5 MG TAB PO SCH (20:48)
[2021-04-12 06:52] LABS: Basophils # (auto) 0.03 K/uL (0-0.2); Basophils % (auto) 0.5 %; Eosinophils # (auto) 0.16 K/uL (0-0.5); Eosinophils % (auto) 2.7 %; Hematocrit (blood only) 40.9 % (42-52); Hemoglobin 13.5 g/dL (14.0-18.0); Lymphocytes # (auto) 1.75 K/uL (1.2-3.4); Lymphocytes % (auto) 29.3 %; Mean Corpuscular Hemoglobin 30.2 pg (25-34); Mean Corpuscular Volume 91.5 fL (80-100); Mean Platelet Volume 10.7 fL (7.4-10.4); Monocytes # (auto) 0.68 K/uL (0.11-0.59); Monocytes % (auto) 11.4 %; Neutrophils # (auto) 3.36 K/uL (1.4-6.5); Neutrophils % (auto) 56.1 %; Platelet Count 194 K/uL (130-400); RDW Coefficient of Variation 13.8 % (11.5-14.5); RDW Standard Deviation 46.3 fL (36.4-46.3); Red Blood Count 4.47 M/uL (4.7-6.1); White Blood Count 5.98 K/uL (4.8-10.8)
[2021-04-12 07:36] LABS: INR 2.7 (0.9-1.1); Prothrombin Time 25.7 Seconds (9.0-12.0)
[2021-04-12 08:00] LABS: BUN Creatinine Ratio 31.5 (10-20); Calcium 8.4 mg/dl (8.5-10.1); Chol HDL Ratio 6.2 (0-5); Est GFR (Non-African American) 104.4 ml/min; Potassium 3.3 mmol/L (3.5-5.1)
[2021-04-12] MEDS: SPIRONOLACTONE 25 MG TAB PO SCH (08:13)
[2021-04-12] MEDS: carvediloL 25 MG TAB PO SCH ×2 (08:13→20:34)
[2021-04-12] MEDS: ATORVASTATIN 40 MG TAB PO SCH (08:13)
[2021-04-12] MEDS: MULTIVITAMIN TAB PO SCH (08:13)
[2021-04-12] MEDS: ESCITALOPRAM OXALATE 20 MG TAB PO SCH (08:13)
[2021-04-12] MEDS: busPIRone 5 MG TAB PO SCH ×3 (08:13→20:34)
[2021-04-12] MEDS: LISINOPRIL/HCTZ 20/25MG 1 TAB PO SCH (08:13)
[2021-04-12] MEDS: ASPIRIN 81 MG ECTAB PO SCH (08:13)
[2021-04-12] MEDS ORDERED: ATORVASTATIN 40 MG TAB PO SCH (09:00)
[2021-04-12] MEDS ORDERED: busPIRone 5 MG TAB PO SCH (09:00)
--- NOTE | 2021-04-12 11:29 | Electrocardiogram Report ---
Test Reason : Blood Pressure : / mmHG Vent. Rate : 063 BPM Atrial Rate : 063 BPM P-R Int : 170 ms QRS Dur : 100 ms QT Int : 414 ms P-R-T Axes : 047 093 072 degrees QTc Int : 423 ms Normal sinus rhythm Rightward axis Borderline ECG When compared with ECG of 11-APR-2021 11:49, No significant change was found Confirmed by Baltazar Dykes ([id number]) on 04/12/2021 11:29:19 AM Referred By: REFERRED SELF Confirmed By:Baltazar Dykes
[2021-04-12] MEDS ORDERED: POTASSIUM CHLORIDE CRTAB 20 MEQ TABCR PO STA ×2 (11:33→13:22)
--- NOTE | 2021-04-12 12:10 | Cardiology Progress Note ---
Date of Service April 12, 2021 Assessment & Plan (1) Elevated troponin I level: (2) Chest discomfort: (3) Palpitation: (4) Near syncope: (5) Abnormal CXR: Plan: 56-year-old patient presents to the emergency department with palpitations, chest discomfort, and near syncope. Symptoms are described as exertional dyspnea with heart pounding and lightheadedness. Clinical history is notable for 30 pound weight gain over the past 6 months with increasing abdominal girth. Troponins are elevated but flat without peak and trough. EKG without acute ischemic changes. Echocardiogram without acute ischemic changes Findings strongly suggestive of acute diastolic heart failure, right-sided secondary to hypoventilation syndrome, elevated pulmonary pressures from prior pulmonary emboli. Worsening right sided fluid retention Plan: Keep patient on telemetry and add additional diuresis. Likely stress testing either inpatient or outpatient post discharge after medication titration Admission and Anticipated Discharge Date Admission Date: April 11, 2021 Subjective Patient was seen and examined, chart, medications, telemetry reviewed Patient without acute complaint overnight no further chest pain or discomfort. Further discussion patient is noted percent aggressive symptoms of exertional dyspnea and heart pounding for several weeks weight now up nearly 30 pounds over the last 6 months. No dizziness or lightheadedness. Mild chronic edema Review of Systems Review of Systems: All systems reviewed & are unremarkable except as noted in Subjective Physical Exam Constitutional: well nourished and + morbidly obese; no acute distress Eyes: PERRL, conjunctivae normal, anicteric sclerae ENMT: external ear and nose normal, oropharynx normal Neck: trachea midline, no thyromegaly Respiratory: no respiratory distress, no labored breathing, no retractions and does not use accessory muscles Auscultation: lungs clear to auscultation bilaterally; no rales and no rhonchi Cardiovascular: Rate/Rhythm: regular rate and regular rhythm Heart Sounds: normal S1 and normal S2; no murmur Vessels: radial pulses present; no JVD and no carotid bruit Extremities: + edema Gastrointestinal (Abdomen): Inspection/Auscultation: abdomen normal to inspe ction, + abdomen distended and normal bowel sounds Percussion/Palpation: abdomen soft; abdomen nontender, no guarding and abdomen not rigid Musculoskeletal: no cyanosis or clubbing, extremities motor strength 5/5 Neurologic: CN's II-XI intact bilaterally and moves all extremities; no focal motor deficits Motor/Sensory: no tremor Psychiatric: A+Ox3, euthymic affect Results & Data ([facility]) Vital Signs (Past 12 Hours) Vital Signs Temp Pulse Pulse Resp BP Pulse Ox 04/12/21 11:48 36.8 C 65 18 119/64 92 04/12/21 08:12 62 125/81 04/12/21 07:34 36.5 C 61 18 147/92 H 97 04/12/21 07:00 62 04/12/21 03:03 80 20 96 04/12/21 02:50 36.8 C 76 18 145/89 H 96 04/12/21 00:28 66 Laboratory Results Laboratory Results - last 24 hr 04/11/21 04/11/21 04/11/21 12:04 12:04 12:04 WBC 9.62 RBC 4.95 Hgb 15.1 Hct 44.9 MCV 90.7 MCH 30.5 MCHC 33.6 RDW Std Deviation 44.5 RDW Coeff of Lisha 13.5 Plt Count 236 MPV 11.2 H Immature Gran % (Auto) 0.1 Neut % (Auto) 74.4 Lymph % (Auto) 14.0 Esmeralda % (Auto) 10.3 Eos % (Auto) 1.0 Baso % (Auto) 0.2 Neut # (Auto) 7.15 H Lymph # (Auto) 1.35 Esmeralda # (Auto) 0.99 H Eos # (Auto) 0.10 Baso # (Auto) 0.02 Immature Gran # (Auto) 0.01 PT 25.8 H INR 2.8 H APTT 44.0 H PTT Ratio 1.7 Sodium 139 Potassium 3.7 Chloride 103 Carbon Dioxide 26 Anion Gap 10 BUN 29 H Creatinine 1.06 Est Cr Clr Drug Dosing 112.3 Est GFR ( Amer) 91.1 Est GFR (Non-Af Amer) 78.6 BUN/Creatinine Ratio 27.4 H Glucose 147 H Calcium 9.0 Magnesium Total Bilirubin 0.4 AST 82 H ALT 145 H Alkaline Phosphatase 45 Troponin I 0.06 H* Total Protein 6.7 Albumin 4.3 Globulin 2.4 L Albumin/Globulin Ratio 1.8 Triglycerides Cholesterol LDL Cholesterol, Calc VLDL Cholesterol, Calc HDL Cholesterol Cholesterol/HDL Ratio Lipase 27 Hepatitis C Ab Screen SARS-CoV-2, RNA, NAAT 04/11/21 04/11/21 04/12/21 12:58 17:29 00:18 WBC RBC Hgb Hct MCV MCH MCHC RDW Std Deviation RDW Coeff of Lisha Plt Count MPV Immature Gran % (Auto) Neut % (Auto) Lymph % (Auto) Esmeralda % (Auto) Eos % (Auto) Baso % (Auto) Neut # (Auto) Lymph # (Auto) Esmeralda # (Auto) Eos # (Auto) Baso # (Auto) Immature Gran # (Auto) PT INR APTT PTT Ratio Sodium Potassium Chloride Carbon Dioxide Anion Gap BUN Creatinine Est Cr Clr Drug Dosing Est GFR ( Amer) Est GFR (Non-Af Amer) BUN/Creatinine Ratio Glucose Calcium Magnesium Total Bilirubin AST ALT Alkaline Phosphatase Troponin I 0.07 H* 0.07 H* Total Protein Albumin Globulin Albumin/Globulin Ratio Triglycerides Cholesterol LDL Cholesterol, Calc VLDL Cholesterol, Calc HDL Cholesterol Cholesterol/HDL Ratio Lipase Hepatitis C Ab Screen SARS-CoV-2, RNA, NAAT NEGATIVE 04/12/21 04/12/21 04/12/21 06:29 06:29 06:29 WBC 5.98 RBC 4.47 L Hgb 13.5 L Hct 40.9 L MCV 91.5 MCH 30.2 MCHC 33.0 RDW Std Deviation 46.3 RDW Coeff of Lisha 13.8 Plt Count 194 MPV 10.7 H Immature Gran % (Auto) 0.0 Neut % (Auto) 56.1 Lymph % (Auto) 29.3 Esmeralda % (Auto) 11.4 Eos % (Auto) 2.7 Baso % (Auto) 0.5 Neut # (Auto) 3.36 Lymph # (Auto) 1.75 Esmeralda # (Auto) 0.68 H Eos # (Auto) 0.16 Baso # (Auto) 0.03 Immature Gran # (Auto) 0.00 PT 25.7 H INR 2.7 H APTT PTT Ratio Sodium 140 Potassium 3.3 L Chloride 102 Carbon Dioxide 30 Anion Gap 8 BUN 23 Creatinine 0.73 D Est Cr Clr Drug Dosing 163.0 Est GFR ( Amer) 121.0 Est GFR (Non-Af Amer) 104.4 BUN/Creatinine Ratio 31.5 H Glucose 120 H Calcium 8.4 L Magnesium 2.0 Total Bilirubin AST ALT Alkaline Phosphatase Troponin I Total Protein Albumin Globulin Albumin/Globulin Ratio Triglycerides 200 H Cholesterol 204 H LDL Cholesterol, Calc 131 VLDL Cholesterol, Calc 40 H HDL Cholesterol 33 Cholesterol/HDL Ratio 6.2 H Lipase Hepatitis C Ab Screen SARS-CoV-2, RNA, NAAT 04/12/21 04/12/21 06:29 06:29 WBC RBC Hgb Hct MCV MCH MCHC RDW Std Deviation RDW Coeff of Lisha Plt Count MPV Immature Gran % (Auto) Neut % (Auto) Lymph % (Auto) Esmeralda % (Auto) Eos % (Auto) Baso % (Auto) Neut # (Auto) Lymph # (Auto) Esmeralda # (Auto) Eos # (Auto) Baso # (Auto) Immature Gran # (Auto) PT INR APTT PTT Ratio Sodium Potassium Chloride Carbon Dioxide Anion Gap BUN Creatinine Est Cr Clr Drug Dosing Est GFR ( Amer) Est GFR (Non-Af Amer) BUN/Creatinine Ratio Glucose Calcium Magnesium Total Bilirubin AST ALT Alkaline Phosphatase Troponin I 0.06 H* Total Protein Albumin Globulin Albumin/Globulin Ratio Triglycerides Cholesterol LDL Cholesterol, Calc VLDL Cholesterol, Calc HDL Cholesterol Cholesterol/HDL Ratio Lipase Hepatitis C Ab Screen Pending SARS-CoV-2, RNA, NAAT Diagnostic Findings Echocardiogram: Normal size, systolic LV function with right ventricular dilatation and grade 2 diastolic dysfunction ECG Additional Comments: EKG 04/12/2021: Normal sinus rhythm with rightward axis no ST segment abnormalities
[2021-04-12] MEDS ORDERED: FUROSEMIDE 40 MG/4 ML VIAL IV ONE (12:15)
--- NOTE | 2021-04-12 13:20 | Hospitalist Progress Note ---
Date of Service April 12, 2021 Assessment & Plan (1) Chest discomfort: Plan: Recent recurrent episodes of chest pain, diaphoresis, lightheadedness and SOB over the past couple of days prompting admission. Troponin is up but flat without rise on serial trend. Echocardiogram reveals intermittent septal flattening consistent with right ventricular pressure overload and grade 2 diastolic dysfunction. There is mild left ventricular hypertrophy and EF is 55 to 60%. Clinical history notable for 30 pound weight gain over the last 6 months. Right-sided findings on echo likely secondary to hypoventilation syndrome and elevated pulmonary pressures from prior pulmonary emboli. Per cardiology clinical picture is consistent with acute diastolic heart failure and additional diuresis will be added. Continue patient on telemetry with stress testing as inpatient or outpatient was discharged after medication titration. (2) Elevated troponin I level: Plan: Less likely secondary to ACS, more likely demand ischemia. See plan above. (3) Hypokalemia: Plan: Potassium was 3.3 this morning and KCl 40 mEq was given x1 dose. With a dditional Lasix given around noon today by cardiology will give an additional potassium pill now. Continue spironolactone as ordered. Trend BMP in a.m. (4) Factor V Leiden mutation: Plan: h/o PE in the past, cont coumadin, INR therapeutic at 2.7. (5) TATIANA on CPAP: Plan: cont CPAP qHS (6) DVT prophylaxis: Plan: warfarin Full Code Dispo-to home when cleared by cardiology, need further monitoring on telemetry for now. Michelle Smith DO [facility] Hospitalist Admission and Anticipated Discharge Date Admission Date: April 11, 2021 Subjective 56-year-old man with morbid obesity, TATIANA on CPAP, hypertension and chronic Coumadin secondary to recurrent blood clots secondary to factor V Leiden mutation presents with chest pain associated with lightheadedness diaphoresis and shortness of breath over the past 2 days. Patient reports that he has been feeling more dyspnea on exertion in the last couple of months. Lightheadedness and diaphoresis with chest pain was a new symptom for him. Since admission he has had no chest pain. Troponin has remained flat without accelerated rise serially overnight. Both EKGs and echocardiogram are without any acute ischemic changes. Currently tolerating PO Review of Systems Review of Systems: All systems reviewed negative except as indicated above. Physical Exam Physical Exam: CONSTITUTIONAL: obese, vitals as above, generally well- appearing, NAD EYES: normal conjunctivae, no scleral icterus, ENT: external ear and nose normal, MMM NECK: trachea midline, RESPIRATORY: clear to auscultation bilaterally, no crackles, rales or wheezes, normal respiratory effort CARDIOVASCULAR: regular rate and rhythm, S1 and 2 heard without murmurs, gallops or rubs, no JVD, no peripheral edema, CHEST: inspection of chest was normal GASTROINTESTINAL: soft, nontender, ND, no guarding MUSCULOSKELETAL: strength 5/5 throughout, head is normocephalic and atraumatic, SKIN: warm and dry NEUROLOGIC: CN 2-12 grossly intact, no sensory deficit, normal cognition, normal speech, no tremor PSYCHIATRIC: alert cooperative and oriented to person, place and time. Results & Data Results & Data ([facility]) Vital Signs (Past 12 Hours) Vital Signs Temp Pulse Pulse Resp BP Pulse Ox 04/12/21 11:48 36.8 C 65 18 119/64 92 04/12/21 08:12 62 125/81 04/12/21 07:34 36.5 C 61 18 147/92 H 97 04/12/21 07:00 62 04/12/21 03:03 80 20 96 04/12/21 02:50 36.8 C 76 18 145/89 H 96 Laboratory Results Short CBC 04/12/21 Range/Units 06:29 WBC 5.98 (4.8-10.8) K/uL Hgb 13.5 L (14.0-18.0) g/dL Hct 40.9 L (42-52) % Plt Count 194 (130-400) K/uL BMP 04/11/21 04/12/21 12:04 06:29 Sodium 139 140 Potassium 3.7 3.3 L Chloride 103 102 Carbon Dioxide 26 30 BUN 29 H 23 Creatinine 1.06 0.73 D Glucose 147 H 120 H Calcium 9.0 8.4 L Cardiac Enzymes 04/11/21 04/11/21 04/12/21 Range/Units 12:04 17:29 00:18 Troponin I 0.06 H* 0.07 H* 0.07 H* (0-0.04) ng/ml 04/12/21 Range/Units 06:29 Troponin I 0.06 H* (0-0.04) ng/ml Liver Function 04/11/21 Range/Units 12:04 Total Bilirubin 0.4 (0.2-1.0) mg/dl AST 82 H (13-39) U/L ALT 145 H (7-52) U/L Alkaline Phosphatase 45 (34-104) U/L Albumin 4.3 (3.4-5.0) gm/dl Diagnostic Findings Short CBC 04/12/21 Range/Units 06:29 WBC 5.98 (4.8-10.8) K/uL Hgb 13.5 L (14.0-18.0) g/dL Hct 40.9 L (42-52) % Plt Count 194 (130-400) K/uL BMP 04/11/21 04/12/21 12:04 06:29 Sodium 139 140 Potassium 3.7 3.3 L Chloride 103 102 Carbon Dioxide 26 30 BUN 29 H 23 Creatinine 1.06 0.73 D Glucose 147 H 120 H Calcium 9.0 8.4 L Cardiac Enzymes 04/11/21 04/11/21 04/12/21 Range/Units 12:04 17:29 00:18 Troponin I 0.06 H* 0.07 H* 0.07 H* (0-0.04) ng/ml 04/12/21 Range/Units 06:29 Troponin I 0.06 H* (0-0.04) ng/ml Liver Function 04/11/21 Range/Units 12:04 Total Bilirubin 0.4 (0.2-1.0) mg/dl AST 82 H (13-39) U/L ALT 145 H (7-52) U/L Alkaline Phosphatase 45 (34-104) U/L Albumin 4.3 (3.4-5.0) gm/dl Medications Administered Current Inpatient Medications Acetaminophen (Acetaminophen 325 Mg Tab) 650 mg PO Q4H PRN PRN Reason: Pain or Fever Stop: 05/11/21 17:13 Aspirin (Aspirin 81 Mg Ectab) 81 mg PO DAILY [facility] Stop: 05/12/21 08:59 Last Admin: 04/12/21 08:13 Dose: 81 mg Documented by: Atorvastatin Calcium (Atorvastatin 40 Mg Tab) 40 mg PO QAM [facility] Stop: 05/11/21 17:13 Last Admin: 04/12/21 08:13 Dose: 40 mg Documented by: Buspirone HCl (Buspirone 5 Mg Tab) 5 mg PO TID [facility] Stop: 05/11/21 20:59 Last Admin: 04/12/21 13:08 Dose: 5 mg Documented by: Carvedilol (Carvedilol 25 Mg Tab) 25 mg PO BID [facility] Stop: 05/11/21 20:59 Last Admin: 04/12/21 08:13 Dose: 25 mg Documented by: Escitalopram Oxalate (Escitalopram Oxalate 20 Mg Tab) 20 mg PO DAILY [facility] Stop: 05/12/21 08:59 Last Admin: 04/12/21 08:13 Dose: 20 mg Documented by: Lisinopril (Lisinopril 20 Mg Tab) 20 mg PO QAM [facility] Stop: 05/13/21 08:59 Multivitamins (Multivitamin Tab) 1 tab PO [facility] Stop: 05/12/21 08:59 Last Admin: 04/12/21 08:13 Dose: 1 tab Documented by: Nitroglycerin (Nitroglycerin Sl 0.4 Mg/Tab Tab) 0.4 mg SL UD PRN PRN Reason: Chest Pain Stop: 05/11/21 17:13 Ondansetron HCl (Ondansetron Inj 2 Mg/Ml 2 Ml Vial) 4 mg IV Q6H PRN PRN Reason: Nausea Stop: 05/11/21 17:13 Spironolactone (Spironolactone 25 Mg Tab) 25 mg PO DAILY [facility] Stop: 05/12/21 08:59 Last Admin: 04/12/21 08:13 Dose: 25 mg Documented by: Warfarin Sodium (Warfarin Sod 10 Mg Tab) 10 mg PO [id number] [facility] Stop: 05/12/21 15:59 Warfarin Sodium (Warfarin Sod 7.5 Mg Tab) 15 mg PO Mo@1600 [facility] Stop: 05/14/21 15:59
[2021-04-12] MEDS: WARFARIN SOD 10 MG TAB PO SCH (16:18)
[2021-04-13 07:55] LABS: INR 2.4 (0.9-1.1); Prothrombin Time 22.7 Seconds (9.0-12.0)
[2021-04-13 08:20] LABS: BUN Creatinine Ratio 29.5 (10-20); Calcium 8.8 mg/dl (8.5-10.1); Creatinine Clr Calc Pharmacy 150.1 ml/min; Est GFR (African American) 117.8 ml/min; Est GFR (Non-African American) 101.6 ml/min; Magnesium 2.1 mg/dl (1.7-2.4); Potassium 3.7 mmol/L (3.5-5.1)
[2021-04-13] MEDS: ESCITALOPRAM OXALATE 20 MG TAB PO SCH (08:35)
[2021-04-13] MEDS: MULTIVITAMIN TAB PO SCH (08:36)
[2021-04-13] MEDS: SPIRONOLACTONE 25 MG TAB PO SCH ×2 (08:36→20:03)
[2021-04-13] MEDS: carvediloL 25 MG TAB PO SCH ×2 (08:36→20:03)
[2021-04-13] MEDS: ASPIRIN 81 MG ECTAB PO SCH (08:36)
[2021-04-13] MEDS: busPIRone 5 MG TAB PO SCH ×3 (08:36→20:02)
[2021-04-13] MEDS: ATORVASTATIN 40 MG TAB PO SCH (08:36)
[2021-04-13] MEDS: lisinopril 20 MG TAB PO SCH (08:36)
--- NOTE | 2021-04-13 10:27 | Hospitalist Progress Note ---
Date of Service April 13, 2021 Assessment & Plan (1) Acute diastolic heart failure: Plan: Improving with diuresis. Additional Lasix 40mg IV now, and spironolactone was increased to 25mg BID by cardiology. Tentative plan for stress test in am. Patient verbalized understanding of this plan. (2) Chest discomfort: Plan: Recent recurrent episodes of chest pain, diaphoresis, lightheadedness and SOB over the past couple of days prompting admission. Troponin is up but flat without rise on serial trend. Echocardiogram reveals intermittent septal flattening consistent with right ventricular pressure overload and grade 2 diastolic dysfunction. There is mild left ventricular hypertrophy and EF is 55 to 60%. Clinical history notable for 30 pound weight gain over the last 6 months. Right-sided findings on echo likely secondary to hypoventilation syndrome and elevated pulmonary pressures from prior pulmonary emboli. Per cardiology clinical picture is consistent with acute diastolic heart failure and additional diuresis will be added today. Continue patient on telemetry with stress testing in am. (3) Elevated troponin I level: Plan: Less likely secondary to ACS, more likely demand ischemia. See plan above. (4) Hypokalemia: Plan: Improved, gave a small amount of potassium supplementation this am, and Lasix again given with increase in aldactone. Trend BMP in am. (5) Factor V Leiden mutation: Plan: h/o PE in the past, cont coumadin, INR therapeutic at 2.7. (6) TATIANA on CPAP: Plan: cont CPAP qHS (7) DVT prophylaxis: Plan: warfarin Full Code Dispo-to home pending results of stress test in am. Michelle Smith DO [facility] Hospitalist Admission and Anticipated Discharge Date Admission Date: April 11, 2021 Subjective 56-year-old man admitted with chest pain no symptom episodes overnight no SOB/chest pain we discussed the cardiology recommendations and plan. he is ambulating well and tolerating PO plan for stress test in am. Review of Systems Review of Systems: All systems reviewed negative except as indicated above. Physical Exam Physical Exam: CONSTITUTIONAL: obese, vitals as above, generally well-appearing, NAD EYES: normal conjunctivae, no scleral icterus, ENT: external ear and nose normal, MMM NECK: trachea midline, RESPIRATORY: clear to auscultation bilaterally, no crackles, rales or wheezes, normal respiratory effort CARDIOVASCULAR: regular rate and rhythm, S1 and 2 heard without murmurs, gallops or rubs, no JVD, no peripheral edema, CHEST: inspection of chest was normal GASTROINTESTINAL: soft, nontender, ND, no guarding MUSCULOSKELETAL: strength 5/5 throughout, head is normocephalic and atraumatic, SKIN: warm and dry NEUROLOGIC: CN 2-12 grossly intact, no sensory deficit, normal cognition, normal speech, no tremor PSYCHIATRIC: alert cooperative and oriented to person, place and time. Results & Data Results & Data ([facility]) Vital Signs (Past 12 Hours) Vital Signs Temp Pulse Pulse Resp BP Pulse Ox 04/13/21 08:35 62 125/73 04/13/21 07:34 36.5 C 57 L 20 144/88 H 95 04/13/21 07:00 54 L 04/13/21 04:18 54 L 31 H 98 04/13/21 02:42 36.7 C 54 L 20 114/74 96 04/12/21 23:17 57 L 04/12/21 22:57 82 17 96 04/12/21 22:27 36.8 C 85 20 145/87 H 96 Laboratory Results [facility] 04/13/21 07:27 Sodium 139 Potassium 3.7 Chloride 103 Carbon Dioxide 29 BUN 23 Creatinine 0.78 Glucose 120 H Calcium 8.8 Medications Administered Current Inpatient Medications Acetaminophen (Acetaminophen 325 Mg Tab) 650 mg PO Q4H PRN PRN Reason: Pain or Fever Stop: 05/11/21 17:13 Aspirin (Aspirin 81 Mg Ectab) 81 mg PO DAILY [facility] Stop: 05/12/21 08:59 Last Admin: 04/13/21 08:36 Dose: 81 mg Documented by: Atorvastatin Calcium (Atorvastatin 40 Mg Tab) 40 mg PO QAM [facility] Stop: 05/11/21 17:13 Last Admin: 04/13/21 08:36 Dose: 40 mg Documented by: Buspirone HCl (Buspirone 5 Mg Tab) 5 mg PO TID [facility] Stop: 05/11/21 20:59 Last Admin: 04/13/21 08:36 Dose: 5 mg Documented by: Carvedilol (Carvedilol 25 Mg Tab) 25 mg PO BID [facility] Stop: 05/11/21 20:59 Last Admin: 04/13/21 08:36 Dose: 25 mg Documented by: Escitalopram Oxalate (Escitalopram Oxalate 20 Mg Tab) 20 mg PO DAILY [facility] Stop: 05/12/21 08:59 Last Admin: 04/13/21 08:35 Dose: 20 mg Documented by: Lisinopril (Lisinopril 20 Mg Tab) 20 mg PO QAM [facility] Stop: 05/13/21 08:59 Last Admin: 04/13/21 08:36 Dose: 20 mg Documented by: Multivitamins (Multivitamin Tab) 1 tab PO QAM [facility] Stop: 05/12/21 08:59 Last Admin: 04/13/21 08:36 Dose: 1 tab Documented by: Nitroglycerin (Nitroglycerin Sl 0.4 Mg/Tab Tab) 0.4 mg SL UD PRN PRN Reason: Chest Pain Stop: 05/11/21 17:13 Ondansetron HCl (Ondansetron Inj 2 Mg/Ml 2 Ml Vial) 4 mg IV Q6H PRN PRN Reason: Nausea Stop: 05/11/21 17:13 Spironolactone (Spironolactone 25 Mg Tab) 25 mg PO DAILY [facility] Stop: 05/12/21 08:59 Last Admin: 04/13/21 08:36 Dose: 25 mg Documented by: Warfarin Sodium (Warfarin Sod 10 Mg Tab) 10 mg PO SuTuWeThFrSa@1600 [facility] Stop: 05/12/21 15:59 Last Admin: 04/12/21 16:18 Dose: 10 mg Documented by: Warfarin Sodium (Warfarin Sod 7.5 Mg Tab) 15 mg PO Mo@1600 [facility] Stop: 05/14/21 15:59
[2021-04-13] MEDS ORDERED: FUROSEMIDE 40 MG/4 ML VIAL IV ONE (10:53)
--- NOTE | 2021-04-13 10:56 | Cardiology Progress Note ---
Date of Service April 13, 2021 Assessment & Plan (1) Elevated troponin I level: (2) Chest discomfort: (3) Palpitation: (4) Near syncope: (5) Abnormal CXR: Plan: 56-year-old patient presents to the emergency department with palpitations, chest discomfort, and near syncope. Symptoms are described as exertional dyspnea with heart pounding and lightheadedness. Clinical history is notable for 30 pound weight gain over the past 6 months with increasing abdominal girth. Troponins are elevated but flat without peak and trough. EKG without acute ischemic changes. Echocardiogram without acute ischemic changes Findings strongly suggestive of acute diastolic heart failure, right-sided secondary to hypoventilation syndrome, elevated pulmonary pressures from prior pulmonary emboli. Worsening right sided fluid retention Plan: Additional furosemide 40 mg IV today. Increase spironolactone to 25 mg twice per day Tentatively planned stress testing in a.m. Would benefit from Jardiance 10 mg p.o. daily Admission and Anticipated Discharge Date Admission Date: April 11, 2021 Subjective Patient was seen and examined, chart, medications, telemetry reviewed. Patient notes brisk diuresis yesterday though none not reflected in I's and O's. Overall feels improved less dyspneic with activity and exertion. Weight down several kilograms. No chest pains or shortness of breath. No arrhythmias on telemetry. Review of Systems Review of Systems: All systems reviewed & are unremarkable except as noted in Subjective Physical Exam Constitutional: well nourished and + morbidly obese; no acute distress Eyes: PERRL, conjunctivae normal, anicteric sclerae ENMT: external ear and nose normal, oropharynx normal Neck: trachea midline, no thyromegaly Respiratory: no respiratory distress, no labored breathing, no retractions and does not use accessory muscles Auscultation: lungs clear to auscultation bilaterally; no rales and no rhonchi Cardiovascular: Rate/Rhythm: regular rate and regular rhythm Heart Sounds: normal S1 and normal S2; no murmur Vessels: radial pulses present; no JVD and no carotid bruit Extremities: + edema Gastrointestinal (Abdomen): Inspection/Auscultation: abdomen normal to inspection, + abdomen distended and normal bowel sounds Percussion/Palpation: abdomen soft; abdomen nontender, no guarding and abdomen not rigid Musculoskeletal: no cyanosis or clubbing, extremities motor strength 5/5 Neurologic: CN's II-XI intact bilaterally and moves all extremities; no focal motor deficits Motor/Sensory: no tremor Psychiatric: A+Ox3, euthymic affect Results & Data ([facility]) Vital Signs (Past 12 Hours) Vital Signs Temp Pulse Pulse Resp BP Pulse Ox 04/13/21 08:35 62 125/73 04/13/21 07:34 36.5 C 57 L 20 144/88 H 95 04/13/21 07:00 54 L 04/13/21 04:18 54 L 31 H 98 04/13/21 02:42 36.7 C 54 L 20 114/74 96 04/12/21 23:17 57 L 04/12/21 22:57 82 17 96 Laboratory Results Laboratory Results - last 24 hr 04/13/21 04/13/21 04/13/21 07:27 07:27 07:27 PT 22.7 H INR 2.4 H Sodium 139 Potassium 3.7 Chloride 103 Carbon Dioxide 29 Anion Gap 7 BUN 23 Creatinine 0.78 Est Cr Clr Drug Dosing 150.1 Est GFR ( Amer) 117.8 Est GFR (Non-Af Amer) 101.6 BUN/Creatinine Ratio 29.5 H Glucose 120 H Calcium 8.8 Magnesium 2.1 B-Natriuretic Peptide 63 ECG Additional Comments: 13-APR-2021 05:59:40 [facility] ROUTINE RETRIEVAL Sinus bradycardia Rightward axis Borderline ECG When compared with ECG of 12-APR-2021 07:24, No significant change was found
--- NOTE | 2021-04-13 12:57 | Electrocardiogram Report ---
Test Reason : Blood Pressure : / mmHG Vent. Rate : 056 BPM Atrial Rate : 056 BPM P-R Int : 174 ms QRS Dur : 104 ms QT Int : 442 ms P-R-T Axes : 055 094 064 degrees QTc Int : 426 ms Sinus bradycardia Rightward axis Borderline ECG When compared with ECG of 12-APR-2021 07:24, No significant change was found Confirmed by Baltazar Dykes ([id number]) on 04/13/2021 12:57:13 PM Referred By: REFERRED SELF Confirmed By:Baltazar Dykes
[2021-04-13] MEDS: WARFARIN SOD 10 MG TAB PO SCH (16:07)
[2021-04-14 07:31] LABS: INR 2.4 (0.9-1.1); Prothrombin Time 22.6 Seconds (9.0-12.0)
[2021-04-14 07:50] LABS: Calcium 8.4 mg/dl (8.5-10.1); Creatinine Clr Calc Pharmacy 141.2 ml/min; Est GFR (African American) 114.2 ml/min; Est GFR (Non-African American) 98.6 ml/min; Potassium 3.7 mmol/L (3.5-5.1)
[2021-04-14] MEDS: carvediloL 25 MG TAB PO SCH (08:08)
[2021-04-14] MEDS: busPIRone 5 MG TAB PO SCH ×2 (08:08→13:13)
[2021-04-14] MEDS: SPIRONOLACTONE 25 MG TAB PO SCH (08:08)
[2021-04-14] MEDS: ATORVASTATIN 40 MG TAB PO SCH (08:08)
[2021-04-14] MEDS: MULTIVITAMIN TAB PO SCH (08:08)
[2021-04-14] MEDS: ESCITALOPRAM OXALATE 20 MG TAB PO SCH (08:08)
[2021-04-14] MEDS: lisinopril 20 MG TAB PO SCH (08:08)
[2021-04-14] MEDS: ASPIRIN 81 MG ECTAB PO SCH (08:08)
[2021-04-14] MEDS ORDERED: METOPROLOL TARTRATE 1 MG/ML VIAL IV ONE ×2 (11:04→11:59)
[2021-04-14] MEDS ORDERED: DOBUTamine HCL 12.5 MG/ML 20 ML VIAL IV ONE (11:04)
[2021-04-14] MEDS ORDERED: ATROPINE SULFATE 0.1 MG/ML 10ML SYR IV ONE (11:04)
--- NOTE | 2021-04-14 12:39 | Hospitalist Progress Note ---
Date of Service April 14, 2021 Assessment & Plan (1) Acute diastolic heart failure: Plan: Improving with diuresis. Cont lasix and spironolactone per cardiology. Plan for stress test this am. (2) Chest discomfort: Plan: Recent recurrent episodes of chest pain, diaphoresis, lightheadedness and SOB over the past couple of days prompting admission. No symptoms since admission. Troponin is up but flat without rise on serial trend. Echocardiogram reveals intermittent septal flattening consistent with right ventricular pressure overload and grade 2 diastolic dysfunction. There is mild left ventricular hypertrophy and EF is 55 to 60%. Clinical history notable for 30 pound weight gain over the last 6 months. Right-sided findings on echo likely secondary to hypoventilation syndrome and elevated pulmonary pressures from prior pulmonary emboli. Per cardiology clinical picture is consistent with acute diastolic heart failure and additional diuresis will be added today. Continue patient on telemetry with stress testing planned for today. (3) Elevated troponin I level: Plan: Less likely secondary to ACS, more likely demand ischemia. See plan above. (4) Hypokalemia: Plan: resolved. (5) Abnormal CT scan, chest: Plan: Concerning enlarged lymph node in chest. Sent images to thoracic surgery in [place] for review and post-discharge plans. Will follow. (6) Factor V Leiden mutation: Plan: h/o PE in the past, cont coumadin, INR therapeutic at 2.7. (7) TATIANA on CPAP: Plan: cont CPAP qHS (8) DVT prophylaxis: Plan: warfarin Full Code Dispo-to home pending results of stress test and cardiology clearance. Michelle Smith DO [facility] Hospitalist Admission and Anticipated Discharge Date Admission Date: April 11, 2021 Subjective 56-year-old man admitted with chest pain, no further chest pain since admission, is being treated for acute diastolic heart failure Remains in sinus rhythm on telemetry review Denies shortness of breath or chest pain Preparing for stress test this morning Doing well overall with the diuretics Review of Systems Review of Systems: All systems reviewed negative except as indicated above. Physical Exam Physical Exam: CONSTITUTIONAL: obese, vitals as above, generally well- appearing, NAD EYES: normal conjunctivae, no scleral icterus, ENT: external ear and nose normal, MMM NECK: trachea midline, RESPIRATORY: clear to auscultation bilaterally, no crackles, rales or wheezes, normal respiratory effort CARDIOVASCULAR: regular rate and rhythm, S1 and 2 heard without murmurs, gallops or rubs, no JVD, no peripheral edema, CHEST: inspection of chest was normal GASTROINTESTINAL: soft, nontender, ND, no guarding MUSCULOSKELETAL: strength 5/5 throughout, head is normocephalic and atraumatic, SKIN: warm and dry NEUROLOGIC: CN 2-12 grossly intact, no sensory deficit, normal cognition, normal speech, no tremor PSYCHIATRIC: alert cooperative and oriented to person, place and time. Results & Data Results & Data ([facility]) Vital Signs (Past 12 Hours) Vital Signs Temp Pulse Pulse Resp BP Pulse Ox 04/14/21 11:00 36.5 C 53 L 14 145/76 H 98 04/14/21 07:29 36.6 C 61 16 152/85 H 97 04/14/21 04:28 36.6 C 60 18 100/78 97 04/14/21 03:02 60 19 95 Laboratory Results BMP 04/14/21 06:58 Sodium 139 Potassium 3.7 Chloride 103 Carbon Dioxide 27 BUN 21 Creatinine 0.84 Glucose 116 H Calcium 8.4 L Diagnostic Findings Chest CT 04/11/21 17:[address] WITH CONTRAST CT DOSE: 1075.33 mGy.cm HISTORY: Abnormal chest x-ray. Follow-up. cxr finings- lymphdenopathy or lung mass TECHNIQUE: Multiaxial CT images of the chest were performed following the intravenous administration of contrast. A dose lowering technique was utilized adhering to the principles of ALARA. COMPARISON: Chest x-ray 04/11/2021. FINDINGS: Lobular low-density lymph nodes/mass seen within the left prevascular space anterior to the left hilum. This corresponds the chest x-ray abnormality. In conglomerate these measure approximately 6.0 x 3.0 x 2.6 cm. This favors enlarged lymph nodes. An anterior mediastinal mass could also have a similar appearance. There are few prominent right hilar lymph nodes. Dominant right hilar lymph node measures 18 x 12 mm and is best seen image 145. No axillary or upper abdominal lymphadenopathy identified. Limited views of the upper abdomen demonstrate hepatic steatosis and a 12 mm hypodense focus within the splenic dome. Normal right adrenal gland. There is a 15 mm fat-containing lesion within the left adrenal gland consistent with a benign myelolipoma. Visualized thyroid gland enhances normally. Normal caliber esophagus. The heart is top normal in size. No pleural or pericardial effusions. Normal caliber thoracic aorta with no evidence for dissection. The main pulmonary arteries are patent. No suspicious lytic or blastic osseous lesions. No pneumothorax. The central airways are patent. A few linear scarlike densities at the left lung base. No focal lung consolidations to suggest pneumonia. No evidence for pulmonary edema. There are few scattered punctate calcified granulomas seen within the lungs. There is a 4 mm subpleural nodule within the right lower lobe in image 179. IMPRESSION: 1. Lobular low density lymph nodes/mass within the left prevascular space anterior to the left hilum which measures approximate 6.0 x 3.0 x 2.6 cm. This f avors enlarged lymph nodes. Tissue diagnosis is recommended to exclude the possibility of a neoplastic process such as lymphoma. 2. There is also mild right hilar lymphadenopathy. 3. The steatosis. 4. A 12 mm indeterminate hypodense focus at the splenic dome. This may be due to the timing of contrast rather than a splenic lesion. 5. A 4 mm indeterminate pulmonary nodule within the right lower lobe. Please refer to below summary of Fleischner criteria recommendations for follow- up of incidental CT nodules (Eunice Reilly, Guidelines for management of small pulmonary nodules detected on CT scans: A statement from the Fleischner Society, Radiology 237: [phone].) SOLID NODULES Solitary nodule size: <6 mm * Low risk patients: no follow-up needed * high risk patients: optional CT at 12 months Solitary nodule size: 6-8 mm * Low risk patients: follow-up at 6-12 months, then consider further follow-up at 18-24 months * high risk patients: initial follow-up CT at 6-12 months and then at 18-24 months if no change Solitary nodule size: >8 mm * either low or high risk patients - consider follow-up CT at 3 months, and/or CT-PET, and/or biopsy Multiple nodules size: <6 mm * Low risk patients: no routine follow-up * high risk patients: optional CT at 12 months Multiple nodules size: 6-8 mm * Low risk patients: follow-up at 3-6 months, then consider further follow-up at 18-24 months * high risk patients: follow-up at 3-6 months, then at 18-24 months if no change Multiple nodules size: >8 mm * Low risk patients: follow-up at 3-6 months, then consider further follow-up at 18-24 months * high risk patients: follow-up at 3-6 months, then at 18-24 months if no change Note: newly detected indeterminate nodule in persons 35 years of age or older. * Low risk patients: minimal or absent history of smoking and/or other known risk factors * high risk patients: history of smoking or of other known risk factors (e.g. first degree relative with lung cancer, or exposure to asbestos, radon, uranium) * if a nodule up to 8 mm is partly solid or is ground glass further follow-up is required after 24 months to exclude possible slow growing adenocarcinoma (LAI) SUBSOLID NODULES Solitary pure ground-glass nodule * nodule size <6 mm - no CT follow-up required * nodule size >=6 mm - follow-up CT at 6-12 months, then every 2 years until 5 years Solitary part-solid nodule * nodule size <6 mm - no CT follow-up required * nodule size >=6 mm - follow-up CT at 3-6 months. If unchanged, and solid component remains <6 mm, then annual follow-up for 5 years Multiple subsolid nodules * nodule size <6 mm - follow-up CT at 3-6 months, consider further follow-up at 2 and 4 years if stable * nodule size >=6 mm - follow-up CT at 3-6 months, subsequent management based on the most suspicious nodule(s) ACT 112: Positive. There are findings on this exam that require communication between the performing entity and the patient following Patient Test Result Information Act ([place] Act 112) guidelines. Electronically signed by: Mark Stephenson M.D. 04/11/2021 7:55 PM Medications Administered Current Inpatient Medications Acetaminophen (Acetaminophen 325 Mg Tab) 650 mg PO Q4H PRN PRN Reason: Pain or Fever Stop: 05/11/21 17:13 Aspirin (Aspirin 81 Mg Ectab) 81 mg PO DAILY [facility] Stop: 05/12/21 08:59 Last Admin: 04/14/21 08:08 Dose: 81 mg Documented by: Atorvastatin Calcium (Atorvastatin 40 Mg Tab) 40 mg PO QAM [facility] Stop: 05/11/21 17:13 Last Admin: 04/14/21 08:08 Dose: 40 mg Documented by: Buspirone HCl (Buspirone 5 Mg Tab) 5 mg PO TID [facility] Stop: 05/11/21 20:59 Last Admin: 04/14/21 08:08 Dose: 5 mg Documented by: Carvedilol (Carvedilol 25 Mg Tab) 25 mg PO BID [facility] Stop: 05/11/21 20:59 Last Admin: 04/14/21 08:08 Dose: 25 mg Documented by: Escitalopram Oxalate (Escitalopram Oxalate 20 Mg Tab) 20 mg PO DAILY [facility] Stop: 05/12/21 08:59 Last Admin: 04/14/21 08:08 Dose: 20 mg Documented by: Lisinopril (Lisinopril 20 Mg Tab) 20 mg PO QAM [facility] Stop: 05/13/21 08:59 Last Admin: 04/14/21 08:08 Dose: 20 mg Documented by: Multivitamins (Multivitamin Tab) 1 tab PO QAM [facility] Stop: 05/12/21 08:59 Last Admin: 04/14/21 08:08 Dose: 1 tab Documented by: Nitroglycerin (Nitroglycerin Sl 0.4 Mg/Tab Tab) 0.4 mg SL UD PRN PRN Reason: Chest Pain Stop: 05/11/21 17:13 Ondansetron HCl (Ondansetron Inj 2 Mg/Ml 2 Ml Vial) 4 mg IV Q6H PRN PRN Reason: Nausea Stop: 05/11/21 17:13 Spironolactone (Spironolactone 25 Mg Tab) 25 mg PO BID [facility] Stop: 05/13/21 20:59 Last Admin: 04/14/21 08:08 Dose: 25 mg Documented by: Warfarin Sodium (Warfarin Sod 10 Mg Tab) 10 mg PO SuTuWeThFrSa@1600 [facility] Stop: 05/12/21 15:59 Last Admin: 04/13/21 16:07 Dose: 10 mg Documented by: Warfarin Sodium (Warfarin Sod 7.5 Mg Tab) 15 mg PO Mo@1600 [facility] Stop: 05/14/21 15:59
--- NOTE | 2021-04-14 13:16 | Cardiology Progress Note ---
Date of Service April 14, 2021 Assessment & Plan (1) Elevated troponin I level: (2) Chest discomfort: (3) Palpitation: (4) Near syncope: (5) Abnormal CXR: Plan: 56-year-old patient presents to the emergency department with palpitations, chest discomfort, and near syncope. Symptoms are described as exertional dyspnea with heart pounding and lightheadedness. Clinical history is notable for 30 pound weight gain over the past 6 months with increasing abdominal girth. Troponins are elevated but flat without peak and trough. EKG without acute ischemic changes. Echocardiogram without acute ischemic changes Findings of acute diastolic heart failure, right-sided secondary to hypoventilation syndrome, elevated pulmonary pressures from prior pulmonary emboli. Worsening right sided fluid retention Patient has responded to IV diuretics in hospital no recurrence of symptoms clinically feeling improved Dobutamine stress radiography without ischemia although with hypertensive blood pressure response Plan: Continue carvedilol with adjusted dose 25 mg a.m. 12.5 mg p.m. Furosemide 40 mg p.o. daily Spironolactone 25 mg p.o. twice daily Lisinopril 20 mg p.o. daily (discontinue hydrochlorothiazide component) Continue chronic warfarin CHF instructions with sodium restriction Follow-up cardiology 2 to 3 weeks. [facility] 1 week Admission and Anticipated Discharge Date Admission Date: April 11, 2021 Subjective Patient seen and examined, chart, medications, telemetry reviewed. Patient underwent dobutamine stress echocardiography today personally supervised. Review of Systems Review of Systems: All systems reviewed & are unremarkable except as noted in Subjective Physical Exam Constitutional: well nourished and + morbidly obese; no acute distress Eyes: PERRL, conjunctivae normal, anicteric sclerae ENMT: external ear and nose normal, oropharynx normal Neck: trachea midline, no thyromegaly Respiratory: no respiratory distress, no labored breathing, no retractions and does not use accessory muscles Auscultation: lungs clear to auscultation bilaterally; no rales and no rhonchi Cardiovascular: Rate/Rhythm: regular rate and regular rhythm Heart Sounds: normal S1 and normal S2; no murmur Vessels: radial pulses present; no JVD and no carotid bruit Extremities: + edema Gastrointestinal (Abdomen): Inspection/Auscultation: abdomen normal to inspection, + abdomen distended and normal bowel sounds Percussion/Palpation: abdomen soft; abdomen nontender, no guarding and abdomen not rigid Musculoskeletal: no cyanosis or clubbing, extremities motor strength 5/5 Neurologic: CN's II-XI intact bilaterally and moves all extremities; no focal motor deficits Motor/Sensory: no tremor Psychiatric: A+Ox3, euthymic affect Results & Data ([facility]) Vital Signs (Past 12 Hours) Vital Signs Temp Pulse Pulse Resp BP Pulse Ox 04/14/21 11:00 36.5 C 53 L 14 145/76 H 98 04/14/21 07:29 36.6 C 61 16 152/85 H 97 04/14/21 04:28 36.6 C 60 18 100/78 97 04/14/21 03:02 60 19 95 Diagnostic Findings Dobutamine stress echocardiography to 85% age-predicted maximal heart rate without stress-induced ischemia by EKG or echocardiographic criteria. Blood pressure response was hypertensive
--- NOTE | 2021-04-14 15:40 | Discharge Summary ---
Date of Service April 14, 2021 Admission HPI Per Admitting Provider HISTORY OF PRESENT ILLNESS: A 56-year-old male with past medical history significant for obstructive sleep apnea, on CPAP, hypertension, morbid obesity, factor V Leiden mutation, history of DVT and PE, on long-term Coumadin, history of dysplastic nevus, anxiety who presents with chest pain. The patient yesterday while showering felt chest tightness and palpitations and dizzy and clammy and also later when he was doing the dishes, also he felt a similar kind of feeling. Today, when he woke up with minimal exertion, he is having similar palpitations, chest discomfort, clammy, and dizziness, which prompted him to come to the ER. Lately, he is also noticing more easy fatigue on minimal efforts. Currently, he is resting comfortably, hemodynamically stable, asymptomatic. Denies any headache. No blurred visions, no earache, no runny nose, no sore throat, no cough, no fever, no chills, no nausea, no abdominal pain. Normal bowel and bladder movements. Denies blood in stools or black stools. Has some swelling in the legs. The patient has a history of DVT in the past. Admission Exam Per Admitting Provider PHYSICAL EXAMINATION: GENERAL: The patient is morbidly obese, not in acute distress. VITAL SIGNS: Temperature 36.4, pulse 78, respiratory rate 21, blood pressure 131/83, oxygen 96% on room air. HEENT: Pupils equal, round and reactive to light. Oral mucosa moist. NECK: No JVD, no neck masses. CARDIOVASCULAR: S1 and S2 heard. Regular rate and rhythm. No murmur, no gallop. RESPIRATORY SYSTEM: Normal AP diameter. No accessory muscle use. No wheezing, no crackles. ABDOMEN: Soft, bowel sounds present, nontender, no distention. CENTRAL NERVOUS SYSTEM: Cranial nerves II-XII grossly intact, nonfocal. EXTREMITIES: Bilateral lower extremities, mild edema present, no erythema seen. Principal Diagnosis Acute diastolic dysfunction abnormal cat scan chest with enlarged lymph node Discharge Exam CONSTITUTIONAL: obese, vitals as above, generally well-appearing, NAD EYES: normal conjunctivae, no scleral icterus, ENT: external ear and nose normal, MMM NECK: trachea midline, RESPIRATORY: clear to auscultation bilaterally, no crackles, rales or wheezes, normal respiratory effort CARDIOVASCULAR: regular rate and rhythm, S1 and 2 heard without murmurs, gallops or rubs, no JVD, no peripheral edema, CHEST: inspection of chest was normal GASTROINTESTINAL: soft, nontender, ND, no guarding MUSCULOSKELETAL: strength 5/5 throughout, head is normocephalic and atraumatic, SKIN: warm and dry NEUROLOGIC: CN 2-12 grossly intact, no sensory deficit, normal cognition, normal speech, no tremor PSYCHIATRIC: alert cooperative and oriented to person, place and time. Discharge Data Allergies Allergy/AdvReac Type Severity Reaction Status Date / Time Penicillins Allergy Unknown unable to Verified 04/11/21 14:30 recall Consultations 04/11/21 13:36 ED Decision to Admit Stat 04/11/21 17:14 Consult Cardiology Routine Ordered Studies Laboratory Results WBC 5.98 K/uL (4.8-10.8) 04/12/21 06:29 RBC 4.47 M/uL (4.7-6.1) L 04/12/21 06:29 Hgb 13.5 g/dL (14.0-18.0) L 04/12/21 06:29 Hct 40.9 % (42-52) L 04/12/21 06:29 MCV 91.5 fL (80-100) 04/12/21 06:29 MCH 30.2 pg (25-34) 04/12/21 06:29 MCHC 33.0 g/dL (32-36) 04/12/21 06:29 RDW Std Deviation 46.3 fL (36.4-46.3) 04/12/21 06:29 RDW Coeff of Lisha 13.8 % (11.5-14.5) 04/12/21 06:29 Plt Count 194 K/uL (130-400) 04/12/21 06:29 MPV 10.7 fL (7.4-10.4) H 04/12/21 06:29 Immature Gran % (Auto) 0.0 % 04/12/21 06:29 Neut % (Auto) 56.1 % 04/12/21 06:29 Lymph % (Auto) 29.3 % 04/12/21 06:29 Riley % (Auto) 11.4 % 04/12/21 06:29 Eos % (Auto) 2.7 % 04/12/21 06:29 Baso % (Auto) 0.5 % 04/12/21 06:29 Neut # (Auto) 3.36 K/uL (1.4-6.5) 04/12/21 06:29 Lymph # (Auto) 1.75 K/uL (1.2-3.4) 04/12/21 06:29 Riley # (Auto) 0.68 K/uL (0.11-0.59) H 04/12/21 06:29 Eos # (Auto) 0.16 K/uL (0-0.5) 04/12/21 06:29 Baso # (Auto) 0.03 K/uL (0-0.2) 04/12/21 06:29 Immature Gran # (Auto) 0.00 K/uL (0.00-0.02) 04/12/21 06:29 PT 22.6 Seconds (9.0-12.0) H 04/14/21 06:58 INR 2.4 (0.9-1.1) H 04/14/21 06:58 APTT 44.0 Seconds (21.0-31.0) H 04/11/21 12:04 PTT Ratio 1.7 04/11/21 12:04 Sodium 139 mmol/L (136-145) 04/14/21 06:58 Potassium 3.7 mmol/L (3.5-5.1) 04/14/21 06:58 Chloride 103 mmol/L (98-107) 04/14/21 06:58 Carbon Dioxide 27 mmol/L (21-32) 04/14/21 06:58 Anion Gap 9 (3-11) 04/14/21 06:58 BUN 21 mg/dl (6-23) 04/14/21 06:58 Creatinine 0.84 mg/dl (0.6-1.4) 04/14/21 06:58 Est Cr Clr Drug Dosing 141.2 ml/min 04/14/21 06:58 Est GFR ( Amer) 114.2 ml/min 04/14/21 06:58 Est GFR (Non-Af Amer) 98.6 ml/min 04/14/21 06:58 BUN/Creatinine Ratio 25.0 (10-20) H 04/14/21 06:58 Glucose 116 mg/dl (70-99(Fasting)) H 04/14/21 06:58 Calcium 8.4 mg/dl (8.5-10.1) L 04/14/21 06:58 Magnesium 2.1 mg/dl (1.7-2.4) 04/13/21 07:27 Total Bilirubin 0.4 mg/dl (0.2-1.0) 04/11/21 12:04 AST 82 U/L (13-39) H 04/11/21 12:04 ALT 145 U/L (7-52) H 04/11/21 12:04 Alkaline Phosphatase 45 U/L (34-104) 04/11/21 12:04 Troponin I 0.06 ng/ml (0-0.04) H* 04/12/21 06:29 B-Natriuretic Peptide 63 pg/ml (0-100) 04/13/21 07:27 Total Protein 6.7 gm/dl (6.0-8.3) 04/11/21 12:04 Albumin 4.3 gm/dl (3.4-5.0) 04/11/21 12:04 Globulin 2.4 gm/dl (2.5-4.0) L 04/11/21 12:04 Albumin/Globulin Ratio 1.8 (0.9-2) 04/11/21 12:04 Triglycerides 200 mg/dl (0-150) H 04/12/21 06:29 Cholesterol 204 mg/dl (0-200) H 04/12/21 06:29 LDL Cholesterol, Calc 131 mg/dl 04/12/21 06:29 VLDL Cholesterol, Calc 40 mg/dl (0-30) H 04/12/21 06:29 HDL Cholesterol 33 mg/dl 04/12/21 06:29 Cholesterol/HDL Ratio 6.2 (0-5) H 04/12/21 06:29 Lipase 27 U/L (11-82) 04/11/21 12:04 Hepatitis C Ab Screen Neg (Neg) 04/12/21 06:29 SARS-CoV-2, RNA, NAAT NEGATIVE (NEGATIVE) 04/11/21 12:58 Impressions Chest X-Ray 04/11/21 12:46 XR chest 1V portable CLINICAL HISTORY: Chest Pain COMPARISON STUDY: No previous studies for comparison. FINDINGS: Lung volumes are normal. There is no pneumothorax or pleural effusion. Linear left basilar opacity favors atelectasis or scarring. Cardiomegaly is unchanged. Note is made of a prominent left mediastinal contour overlying the left hilum. This is new since prior exam. IMPRESSION: 1. Prominent left mediastinal contour overlying the left hilum. This may represent pulmonary vessels however lymphadenopathy or a mass could appear similar. A chest CT with contrast is recommended. 2. Cardiomegaly. No evidence for pulmonary edema. ACT 112: Negative or not required by law. Electronically signed by: Parish Singleton M.D. 04/11/2021 1:[address] 04/11/21 17:[address] WITH CONTRAST CT DOSE: 1075.33 mGy.cm HISTORY: Abnormal chest x-ray. Follow-up. cxr finings- lymphdenopathy or lung mass TECHNIQUE: Multiaxial CT images of the chest were performed following the intravenous administration of contrast. A dose lowering technique was utilized adhering to the principles of ALARA. COMPARISON: Chest x-ray 04/11/2021. FINDINGS: Lobular low-density lymph nodes/mass seen within the left prevascular space anterior to the left hilum. This corresponds the chest x-ray abnormality. In conglomerate these measure approximately 6.0 x 3.0 x 2.6 cm. This favors enlarged lymph nodes. An anterior mediastinal mass could also have a similar appearance. There are few prominent right hilar lymph nodes. Dominant right hilar lymph node measures 18 x 12 mm and is best seen image 145. No axillary or upper abdominal lymphadenopathy identified. Limited views of the upper abdomen demonstrate hepatic steatosis and a 12 mm hypodense focus within the splenic dome. Normal right adrenal gland. There is a 15 mm fat-containing lesion within the left adrenal gland consistent with a benign myelolipoma. Visualized thyroid gland enhances normally. Normal caliber esophagus. The heart is top normal in size. No pleural or pericardial effusions. Normal caliber thoracic aorta with no evidence for dissection. The main pulmonary arteries are patent. No suspicious lytic or blastic osseous lesions. No pneumothorax. The central airways are patent. A few linear scarlike densities at the left lung base. No focal lung consolidations to suggest pneumonia. No evidence for pulmonary edema. There are few scattered punctate calcified granulomas seen within the lungs. There is a 4 mm subpleural nodule within the right lower lobe in image 179. IMPRESSION: 1. Lobular low density lymph nodes/mass within the left prevascular space anterior to the left hilum which measures approximate 6.0 x 3.0 x 2.6 cm. This favors enlarged lymph nodes. Tissue diagnosis is recommended to exclude the possibility of a neoplastic process such as lymphoma. 2. There is also mild right hilar lymphadenopathy. 3. The steatosis. 4. A 12 mm indeterminate hypodense focus at the splenic dome. This may be due to the timing of contrast rather than a splenic lesion. 5. A 4 mm indeterminate pulmonary nodule within the right lower lobe. Please refer to below summary of Fleischner criteria recommendations for follow- up of incidental CT nodules (Eunice Reilly, Guidelines for management of small pulmonary nodules detected on CT scans: A statement from the Fleischner Society, Radiology 237: [phone].) SOLID NODULES Solitary nodule size: <6 mm * Low risk patients: no follow-up needed * high risk patients: optional CT at 12 months Solitary nodule size: 6-8 mm * Low risk patients: follow-up at 6-12 months, then consider further follow-up at 18-24 months * high risk patients: initial follow-up CT at 6-12 months and then at 18-24 months if no change Solitary nodule size: >8 mm * either low or high risk patients - consider follow-up CT at 3 months, and/or CT-PET, and/or biopsy Multiple nodules size: <6 mm * Low risk patients: no routine follow-up * high risk patients: optional CT at 12 months Multiple nodules size: 6-8 mm * Low risk patients: follow-up at 3-6 months, then consider further follow-up at 18-24 months * high risk patients: follow-up at 3-6 months, then at 18-24 months if no change Multiple nodules size: >8 mm * Low risk patients: follow-up at 3-6 months, then consider further follow-up at 18-24 months * high risk patients: follow-up at 3-6 months, then at 18-24 months if no change Note: newly detected indeterminate nodule in persons 35 years of age or older. * Low risk patients: minimal or absent history of smoking and/or other known risk factors * high risk patients: history of smoking or of other known risk factors (e.g. first degree relative with lung cancer, or exposure to asbestos, radon, uranium) * if a nodule up to 8 mm is partly solid or is ground glass further follow-up is required after 24 months to exclude possible slow growing adenocarcinoma (LAI) SUBSOLID NODULES Solitary pure ground-glass nodule * nodule size <6 mm - no CT follow-up required * nodule size >=6 mm - follow-up CT at 6-12 months, then every 2 years until 5 years Solitary part-solid nodule * nodule size <6 mm - no CT follow-up required * nodule size >=6 mm - follow-up CT at 3-6 months. If unchanged, and solid component remains <6 mm, then annual follow-up for 5 years Multiple subsolid nodules * nodule size <6 mm - follow-up CT at 3-6 months, consider further follow-up at 2 and 4 years if stable * nodule size >=6 mm - follow-up CT at 3-6 months, subsequent management based on the most suspicious nodule(s) ACT 112: Positive. There are findings on this exam that require communication between the performing entity and the patient following Patient Test Result Information Act ([place] Act 112) guidelines. Electronically signed by: Mark Stephenson M.D. 04/11/2021 7:55 PM Hospital Course (1) Acute diastolic heart failure: Improving with diuresis. Cont lasix and spironolactone per cardiology. Plan for stress test this am. (2) Chest discomfort: Recent recurrent episodes of chest pain, diaphoresis, lightheadedness and SOB over the past couple of days prompting admission. No symptoms since admission. Troponin is up but flat without rise on serial trend. Echocardiogram reveals intermittent septal flattening consistent with right ventricular pressure overload and grade 2 diastolic dysfunction. There is mild left ventricular hypertrophy and EF is 55 to 60%. Clinical history notable for 30 pound weight gain over the last 6 months. Right-sided findings on echo likely secondary to hypoventilation syndrome and elevated pulmonary pressures from prior pulmonary emboli. Per cardiology clinical picture is consistent with acute diastolic heart failure and additional diuresis will be added today. Continue patient on telemetry with stress testing planned for today. (3) Elevated troponin I level: Less likely secondary to ACS, more likely demand ischemia. See plan above. (4) Hypokalemia: resolved. (5) Abnormal CT scan, chest: Concerning enlarged lymph node in chest. Sent images to thoracic surgery in [place] for review and post-discharge plans. Will follow. (6) Factor V Leiden mutation: h/o PE in the past, cont coumadin, INR therapeutic at 2.7. (7) TATIANA on CPAP: cont CPAP qHS (8) DVT prophylaxis: warfarin Full Code Dispo-to home pending results of stress test and cardiology clearance. Michelle Smith DO [facility] Hospitalist 56-year-old male history of obstructive sleep apnea on CPAP, hypertension, obesity and factor V Leiden mutation with history of DVT and PE on long-term Coumadin who presented with chest pain palpitations and dizzy spells. He had no chest pain in the ER. Blood work obtained revealed a normal white blood cell count, H&H and platelet count. The patient's kidney function was unremarkable with but with some prerenal azotemia. His initial troponin was 0.06. He was therapeutic on his Coumadin with an INR level of 2.8. He was found to have chronic left lower extremity swelling that was chronic in nature. His chest x- ray revealed prominent mediastinal contour overlying the left hilum and a CT of the chest was performed. He did have a mild transaminitis. Covid testing was negative. Chest CT revealed a lobular low-density lymph node/mass in the left prevascular space anterior to the left hilum measuring 6 x 3 cm. This favored an enlarged lymph node. The scan in case was discussed with thoracic surgery at [facility] and the patient was instructed to follow-up post hospital discharge as tissue diagnosis of recommended to exclude the possibility of a neoplastic process such as lymphoma. He was admitted to the hospitalist service and enzymes were trended overnight. Cardiology was consulted. As he was anticoagulated chronically with warfarin there was no indication for IV heparin. Further ischemic evaluation for the patient's chest discomfort and dyspnea on exertion with minimally elevated troponin was warranted. He underwent a resting echocardiogram revealing an ejection fraction 55 to 60% with mild concentric left ventricular hypertrophy. Grade 2 diastolic dysfunction was noted. Clinical history is notable for 30 pound weight gain over the past 6 months with an increased abdominal girth. Overall cardiology recommended the findings suggested acute diastolic heart failure secondary to hypoventilation syndrome and elevated pulmonary pressures from prior pulmonary emboli. Intravenous diuresis with Lasix was administered. He underwent a dobutamine stress echocardiogram without ischemia although with hypertensive blood pressure respon se noted. At time of discharge he was hemodynamically stable and afebrile and oxygenating well on room air. Original symptoms had not returned during his entire hospital stay and telemetry remained unremarkable. Medications were adjusted and CHF instructions were given with follow-up in 2 to 3 weeks with cardiology and a BMP in 1 week. Patient verbalized understanding with intent to comply. He was discharged in stable condition with close primary care follow-up recommended. Repeat LFTs should also be considered as outpatient to ensure they have returned to normal or to work up as needed. Total Time Total Time Spent Total Time Spent (In Minutes): 60 Discharge Plan Discharge Items Patient Disposition: Home - Self-Care Reason For Visit: CHEST PAIN Discharge Diagnosis: Acute diastolic dysfunction abnormal cat scan chest with enlarged lymph node Condition on Discharge: Good Activity: Resume your previous activity Non-emergency contact: Primary Care Provider Call non-emergency contact if: you have any medication questions, your symptoms worsen, your pain is not controlled, your pain is worsening, your pain is unusua l for you, your pain is concerning for you and you have a fever Follow-up/Referrals: Lul Goff MD [Primary Care Provider] - (Date & Time 04/17/2021 11:20 AM Provider Lul Goff MD Department [facility] ) Diet: Low Sodium (2gm) Addtl Attending Provider Instructions: Please take all medications as instructed on discharge list below. Please adhere to 2000mg daily restriction of sodium and review all heart failure instructions given below including taking daily standing weights. Please follow up with your primary care physician in one week to review all medication changes, set up telemedicine consultation with Thoracic Surgery, Dr. Mook Charles, and to obtain repeat blood work (BMP) which is important after medication changes. Please contact [facility] to set up a followup appointment with Dr. Nakul Jung in 2-3 weeks time. Your chest CT scan revealed an enlarged lymph node in your chest that appeared abnormal. Further discussion with Thoracic Surgery is recommended. Your information was sent to Dr. Charles listed above, who is located at [facility] in [place], [place]. It was a pleasure taking care of you! Please call if you have any questions or problems. You can reach a [facility] hospitalist on duty at [facility] 24 hours a day by calling [phone]. Take care of yourself. Michelle Smith DO [facility] Hospitalist Add Journeyman Operator Assistant Provider Instructions: Call 911 and go to the Emergency Room if: * You have tightness or pain in your chest that does not go away with rest or Nitroglycerin * You are very short of breath even with rest Call your doctor if any of the following symptoms or problems start or get worse: * Shortness of breath or difficulty breathing * Wake up at night short of breath * Chest pain * Cough * Swelling of your hands, fee, or legs * More fatigued or tired with your normal activity * Palpitations - sudden fast heart beats WEIGHT * Weigh yourself every morning after using the bathroom. * Use the same scale. * Wear the same amount of clothing. * Write your weight down on your chart. * Call your doctor if you gain more than 2-3 pounds in 1-2 days. MEDICATIONS * Use this discharge instruction sheet for instructions. * Take your medications at the time your doctor ordered. * Do not skip a dose of your medicines. * If you miss a dose of medicine, take as soon as possible, but DO NOT DOUBLE A DOSE. * Read your medicine information when you get home. * Know all of the side effects of your medicine. * Call your doctor's office if you have any side effects. * Be sure all of your doctors know what medicine and herbs you take (including cold, flu, and herbal medicine). * Pain Medicine: If you do not get relief from your pain, please call your doctor for help. Take the following with you to your follow-up doctor appointments: * Weight Chart * Medication List * List of questions Do not drink excessive alcohol, beer or wine. Pending Studies at Discharge: No Stand-Alone Forms: My [facility] Medications and DC Order Prescriptions: New lisinopril 20 mg Tablet 20 mg PO QAM Qty: 30 RF: 0 carvedilol [Coreg] 12.5 mg tablet 12.5 mg PO HS Qty: 30 RF: 0 furosemide 40 mg Tablet 40 mg PO QAM Qty: 30 RF: 0 Continued multivitamin Tablet 1 tab PO DAILY Qty: 0 RF: 0 warfarin 10 mg Tablet 10 mg PO SUN,,W,,F,SA 90 Days Qty: 0 RF: 3 warfarin 5 mg Tablet 15 mg PO UD 90 Days Qty: 0 RF: 3 celecoxib [Celebrex] 100 mg Capsule 100 mg PO BID PRN (Reason: Pain) Qty: 0 RF: 0 buspirone 5 mg tablet 5 mg PO TID RF: 0 escitalopram oxalate 20 mg tablet 20 mg PO DAILY RF: 0 Changed carvedilol 25 mg tablet 25 mg PO QAM Qty: 30 RF: 0 spironolactone 25 mg tablet 25 mg PO BID Qty: 60 RF: 0 Discontinued lisinopril-hydrochlorothiazide [Zestoretic] 20-25 mg Tablet 1 tab PO BID Qty: 0 RF: 0 Discharge Orders: Discharge Order (Routine); Ordered 04/14/21 Ordered By: Michelle Smith Admission Data Admit Date/Time: 04/11/21 14:26 Attending Provider: Michelle Smith Admit Provider: Sandro Gilbert Primary Care Provider: Lul Goff Other Providers: Sandro Gilbert ; John Brown Other Interventions: Discharge Summary Assessment (RN) Last Done: 04/14/21 16:23
[2021-04-14] MEDS ORDERED: WARFARIN SOD 7.5 MG TAB PO SCH (16:00)
[2021-04-15] MEDS ORDERED: FUROSEMIDE 40 MG TAB PO SCH (09:00)
== END 2021-04-14 16:41 | disposition home or self-care (01) | DRG 291 ==
LOC: ED 11:40 → INTOOBSV 14:26 → 2S 14:26 → SUATTDRO 14:26 → 2S 15:50

== ENCOUNTER 2022-06-02 09:26 | Inpatient (IN) ==
--- NOTE | 2022-06-02 09:40 | Emergency Department Note ---
Impression & Plan Acute hyperglycemia, Chronic diastolic CHF (congestive heart failure), Chronic anticoagulation ED Provider Note NAME: TONI MORA AGE: 57 SEX: M : 1965 ARRIVES VIA: Walk-In INFORMANT: Patient, ED PROVIDER(S): Wander Hopkins MD CHIEF COMPLAINT: Nausea vomiting, elevated blood sugar MEDICAL DECISION MAKING: Patient presents with nausea vomiting elevated blood sugar notable over the last 1 to 2 months. Patient states that his sugars have been in the 600s. IV was established blood work was obtained along with IV fluids given. After obtaining the patient's outpatient records it is noted the patient has a known history of heart failure and is on diuretics. I did discuss with nursing and the patient was only to being given 500 of IV fluids. The patient was ordered 10 of IV insulin after reviewing the patient's blood work and the patient was ordered an insulin drip. Patient's blood work shows a normal white count hemoglobin and platelet count. The patient's kidney function shows a creat of 1.49. The patient's initial glucose is 703. Patient's initial bicarb was 19 with an anion gap of 14. Patient's sodium initially 123 likely a combination of pseudohyponatremia given the patient's significantly elevated blood sugar. Magnesium 2.6. Patient's urinalysis does show ketones as well as glucose in the urine. COVID-negative. I did speak the on-call hospitalist service Rolanda Mcfadden PA-C and the patient was admitted to medicine service by Dr. Moseley. Critical Care: I have personally spent 47 minutes of critical care time in direct management of this patient. This includes bedside care, interpretation of diagnostic studies, and testing, discussion with consultants, patient, and family members, and other require inpatient management activities. This 47 minutes is in excess of all separately billable procedures. Prior /Outside records reviewed: I did review the patient's outpatient note from Dr. Goff office from February 2022. Patient does have a history of factor V Leiden type 2 diabetes chronic heart failure with preserved ejection fraction. Patient does take Lasix once daily Wednesday and takes 2 tablets Wednesday. Patient also takes lisinopril rosuvastatin and carvedilol. Differential diagnosis: Infection, dehydration, metabolic abnormality, hypo/hyperglycemia, electrolyte disturbance, anemia, hypoxia, cardiac sources, intracerebral event, toxicologic, neurologic, as well as other pathologies. Diagnostics, as interpreted by me: ECG: Normal sinus rhythm, rate of 70 normal intervals right axis deviation no obvious ST elevations. Cardiac monitoring: An order was placed for continuous cardiac monitoring. The monitor shows a rate of 77 with sinus rhythm. Patient was placed on pulse oximetry Medical decision rules: none Imaging studies: See below HPI: Patient presents due to concern for increased thirst and urination in the setting of elevated blood sugar. The patient states that he has noticed his blood sugar to be elevated over the last 1 to 2 months. The patient states that he does follow with Dr. Parsons was recent started on Ozempic about 5 months prior. Patient does have follow-up appointment with his primary care physician tomorrow. Patient has had intermittent nausea and vomiting almost daily. The patient has not vomited today but did vomit a yesterday as well as over the weekend. The patient denies any changes in diet or infectious symptoms. No cough fevers or chills. No chest pains or shortness of breath. Patient denies any abdominal pains. Patient states that he has been compliant with his weekly Ozempic which he self administers every Wednesday in the abdomen. PAST MEDICAL HISTORY: See Below PAST SURGICAL HISTORY: See Below SOCIAL HISTORY: See Below HOME MEDICATIONS: See Below ALLERGIES: See Below VITALS: See Below PHYSICAL EXAMINATION: GENERAL: NAD, wearing a mask, non-toxic. BMI of 45. Wearing glasses. EYE EXAM: Normal conjunctiva. PERRL, no anisocoria and EOM's grossly intact w/o pain. NECK: Supple, no nuchal rigidity, no adenopathy, non-tender. No signs of meningismus. FROM of the neck with good chin to chest and neck extension. No stridor. LUNGS: Clear to auscultation. Normal chest wall mechanics. HEART: NSR, no MRG. ABDOMEN: Abdomen soft, non-tender, no masses, no rebound or guarding. BACK: No CVA TTP. SKIN: No rashes and no bruising. UPPER EXTREMITIES: Upper extremities are grossly normal. LOWER EXTREMITIES: Grossly normal, no edema. NEURO EXAM: A&O x3, cranial nerves II-XII grossly intact, normal speech, moves all 4 extremities. Past Med/Surg History Medical History Abnormal CT scan, chest Abnormal CXR Acute diastolic heart failure Chest discomfort Deep vein thrombosis DVT (deep venous thrombosis) DVT prophylaxis Elevated troponin I level Factor V Leiden mutation H/O: HTN (hypertension) Hypokalemia Near syncope TATIANA on CPAP Palpitation Surgical History Hx of total knee arthroplasty Family History Other Factor V Leiden Heart disease Social History Smoking Status: Current some day smoker Tobacco Type: Cigars Hx Alcohol Use: Yes Hx Substance Use: No Preferred Language: Niuean Communication Ability: Effective City Driver Required: No Beliefs That Will Affect Care: None marital status: Current Living Situation: Spouse How many Children do You have: 1 Feels Safe at Home: Yes Safety Concerns: Feels Safe At This Time Assistive Devices: Glasses Allergies Allergies Allergy/AdvReac Type Severity Reaction Status Date / Time Penicillins Allergy Unknown unable to Verified 04/11/21 14:30 recall Home Meds Home Medications Medication Instructions Recorded Confirmed celecoxib 100 mg capsule (Celebrex) 100 mg PO BID PRN Pain #0 caps 11/19/16 06/02/22 multivitamin 1 tab PO DAILY #0 tabs 11/19/16 06/02/22 warfarin 5 mg tablet 10 mg PO 4XWK 90 days #0 tabs 11/19/16 06/02/22 buspirone 5 mg tablet 5 mg PO BID 04/11/21 06/02/22 escitalopram oxalate 20 mg tablet 20 mg PO DAILY 04/11/21 06/02/22 carvedilol 25 mg tablet 25 mg PO BID 06/02/22 06/02/22 furosemide 40 mg tablet 40 mg PO 4XWK 06/02/22 06/02/22 furosemide 40 mg tablet 80 mg PO 3XWK 06/02/22 06/02/22 rosuvastatin 10 mg tablet 10 mg PO QAM 06/02/22 06/02/22 semaglutide 0.25 mg or 0.5 mg (2 0.5 mg subcut WK 04/18/23 04/18/23 mg/1.5 mL) subcutaneous pen injector (Ozempic) warfarin 5 mg tablet 5 mg PO 3XWK 06/02/22 06/02/22 Previous Rx's Medication Instructions Recorded lisinopril 20 mg tablet 20 mg PO QAM #30 tabs 04/14/21 spironolactone 25 mg tablet 25 mg PO BID #60 tabs 04/14/21 Results & Data (ED) Vital Signs Vital Signs - 24 hr 06/02/22 09:30 06/02/22 09:55 06/02/22 12:00 Temperature 36.8 C Temperature Source Skin Pulse Rate 73 Pulse Rate [Right Finger] 69 Respiratory Rate 18 18 Respiratory Effort / Characteristics Non-Labored Spontaneous Non-Labored Respiratory Depth Normal Normal Respiratory Pattern Regular Regular Blood Pressure 98/64 L Blood Pressure [Left Arm] 121/68 Blood Pressure Mean 75 Blood Pressure Mean [Left Arm] 85 Blood Pressure Position Sitting Pulse Oximetry 97 95 Oxygen Delivery Method Room Air Room Air Room Air Sepsis Recent Fever Within 48 Hours No Sepsis New/Unexplained Change in Mental Status N/A Sepsis Action Taken by Nursing No Action Required Home Medications Current Medication List: was personally reviewed by me Laboratory Data Attestation: I reviewed the patient's lab results. 06/02/22 10:10 06/02/22 14:08 Lab Results 06/02/22 06/02/22 06/02/22 Range/Units 10:04 10:10 10:10 WBC 7.56 (4.8-10.8) K/ul RBC 4.76 (4.70-6.10) M/uL Hgb 14.1 (14.0-18.0) g/dl Hct 41.5 L (42.0-52.0) % MCV 87.2 (80.0-100.0) fL MCH 29.6 (25.0-34.0) pg MCHC 34.0 (32.0-36.0) g/dL RDW Std Deviation 40.5 (36.4-46.3) fL RDW Coeff of Lisha 12.7 (11.5-14.5) % Plt Count 193 (130-400) K/uL MPV 12.2 (9.4-12.4) fL Immature Gran % (Auto) 0.3 % Neut % (Auto) 73.5 % Lymph % (Auto) 17.7 % [place] % (Auto) 7.0 % Eos % (Auto) 0.8 % Baso % (Auto) 0.7 % Neut # (Auto) 5.56 (1.40-6.50) K/uL Lymph # (Auto) 1.34 (1.2-3.4) K/uL [place] # (Auto) 0.53 (0.11-0.59) K/uL Eos # (Auto) 0.06 (0-0.50) K/uL Baso # (Auto) 0.05 (0-0.2) K/uL Immature Gran # (Auto) 0.02 (0.01-0.20) K/uL PT (9.0-12.0) Seconds INR (0.9-1.1) APTT (21.0-31.0) Seconds PTT Ratio Sodium 123 L (136-145) mmol/L Potassium 5.2 H (3.5-5.1) mmol/L Chloride 90 L (98-107) mmol/L Carbon Dioxide 19 L (21-32) mmol/L Anion Gap 14 H (3-11) BUN 35 H (6-23) mg/dl Creatinine 1.49 H (0.6-1.4) mg/dl Est Cr Clr Drug Dosing 75.0 ml/min Est GFR ( Amer) 59.9 ml/min Est GFR (Non-Af Amer) 51.7 ml/min BUN/Creatinine Ratio 23.5 H (10-20) Glucose 703 H* (70-99(Fasting)) mg/dl POC Glucose > 600 H* (70-99) mg/dl Calcium 9.4 (8.6-10.3) mg/dl Magnesium 2.6 H (1.7-2.4) mg/dl Total Bilirubin 0.6 (0.2-1.0) mg/dl AST 38 (13-39) U/L ALT 43 (7-52) U/L Alkaline Phosphatase 63 (34-104) U/L Total Protein 6.9 (6.0-8.3) gm/dl Albumin 4.2 (3.4-5.0) gm/dl Globulin 2.7 (2.5-4.0) gm/dl Albumin/Globulin Ratio 1.6 (0.9-2) TSH (0.300-4.500) uIu/ml 06/02/22 06/02/22 Range/Units 10:10 12:06 WBC (4.8-10.8) K/ul RBC (4.70-6.10) M/uL Hgb (14.0-18.0) g/dl Hct (42.0-52.0) % MCV (80.0-100.0) fL MCH (25.0-34.0) pg MCHC (32.0-36.0) g/dL RDW Std Deviation (36.4-46.3) fL RDW Coeff of Lisha (11.5-14.5) % Plt Count (130-400) K/uL MPV (9.4-12.4) fL Immature Gran % (Auto) % Neut % (Auto) % Lymph % (Auto) % [place] % (Auto) % Eos % (Auto) % Baso % (Auto) % Neut # (Auto) (1.40-6.50) K/uL Lymph # (Auto) (1.2-3.4) K/uL [place] # (Auto) (0.11-0.59) K/uL Eos # (Auto) (0-0.50) K/uL Baso # (Auto) (0-0.2) K/uL Immature Gran # (Auto) (0.01-0.20) K/uL PT 17.2 H (9.0-12.0) Seconds INR 1.7 H (0.9-1.1) APTT 33.3 H (21.0-31.0) Seconds PTT Ratio 1.2 Sodium (136-145) mmol/L Potassium (3.5-5.1) mmol/L Chloride (98-107) mmol/L Carbon Dioxide (21-32) mmol/L Anion Gap (3-11) BUN (6-23) mg/dl Creatinine (0.6-1.4) mg/dl Est Cr Clr Drug Dosing ml/min Est GFR ( Amer) ml/min Est GFR (Non-Af Amer) ml/min BUN/Creatinine Ratio (10-20) Glucose (70-99(Fasting)) mg/dl POC Glucose (70-99) mg/dl Calcium (8.6-10.3) mg/dl Magnesium (1.7-2.4) mg/dl Total Bilirubin (0.2-1.0) mg/dl AST (13-39) U/L ALT (7-52) U/L Alkaline Phosphatase (34-104) U/L Total Protein (6.0-8.3) gm/dl Albumin (3.4-5.0) gm/dl Globulin (2.5-4.0) gm/dl Albumin/Globulin Ratio (0.9-2) TSH 2.548 (0.300-4.500) uIu/ml Administered Medications Insulin Human Regular 250 (units/ Sodium Chloride) 250 mls @ 12 mls/hr IV .[id number] [facility]; Protocol Stop: 07/02/22 10:59 Last Titration: 06/02/22 14:48 Dose: 12 unit/hr, 12 mls/hr Documented By: ALMA Co-signed By: SCAR Titration: 06/02/22 14:28 Dose: 10 unit/hr, 10 mls/hr Documented By: SCAR Co-signed By: CASSI Titration: 06/02/22 13:43 Dose: 5.7 unit/hr, 5.7 mls/hr Documented By: ALMA Co-signed By: CASSI Titration: 06/02/22 12:48 Dose: 4.1 unit/hr, 4.1 mls/hr Documented By: ALMA Co-signed By: CASSI Admin: 06/02/22 11:38 Dose: 3.4 unit/hr, 3.4 mls/hr Documented By: ALMA Co-signed By: CASSI Discontinued Medications Sodium Chloride (Nss 1000ml) 2,000 mls @ 999 mls/hr IV .Q2H1M MONICA Stop: 06/02/22 12:00 Last Admin: 06/02/22 10:40 Dose: Not Given Documented By: ALMA Sodium Chloride (Nss 1000ml) 500 mls @ 999 mls/hr IV .Q31M ONE Stop: 06/02/22 10:38 Last Infusion: 06/02/22 11:49 Dose: 0 mls/hr Documented By: Admin: 06/02/22 10:42 Dose: 999 mls/hr Documented By: ALMA Insulin Human Regular (Novolin-R Insulin Per Unit Charge) 10 units IV NOW STA Stop: 06/02/22 10:54 Last Admin: 06/02/22 11:37 Dose: 10 units Documented By: ALMA Co-signed By: CASSI Lopez (Insulin Protocol Goal Range ) 1 each N/A ONE ONE Stop: 06/02/22 10:58 Last Admin: 06/02/22 11:30 Dose: Not Given Documented By: ALMA Lopez (Stat Iv) 1 each N/A NOW STA Stop: 06/02/22 10:58 Last Admin: 06/02/22 11:30 Dose: Not Given Documented By: ALMA Lopez (Moderate Stress Level ) 1 each N/A ONE ONE Stop: 06/02/22 11:01 Last Admin: 06/02/22 11:30 Dose: Not Given Documented By: ALMA Imaging Data Radiologist's Impression: Chest X-Ray 06/02/22 09:55 XR chest 1V portable CLINICAL HISTORY: weakness TECHNIQUE: Single frontal radiograph of the chest was obtained. Comparison: Comparison is made to chest radiograph 04/11/2021 FINDINGS: Exam is limited by underpenetration. Cardiomegaly is noted. The lungs are clear. No evidence of pleural effusion or pneumothorax. IMPRESSION: No acute chest disease. Cardiomegaly is noted. ACT 112: Negative or not required by law. Electronically signed by: Syed Hagan M.D. 06/02/2022 10:32 AM Discharge Plan Visit Data Chief Complaint: Hyperglycemia Stated Complaint: LOW BLOOD PRESSURE, LIGHTEHEADED ED Provider: Wander Hopkins Discharge Problem: Acute hyperglycemia, Chronic diastolic CHF (congestive heart failure), Chronic anticoagulation Patient Disposition: Admitted As Inpatient Discharge Instructions Interventions: ED Discharge Assessment Last Done: 06/02/22 12:52
[2022-06-02] MEDS ORDERED: SODIUM CHLORIDE 0.9% 1000ML 2,000 ML IV SCH (10:00)
[2022-06-02] MEDS ORDERED: SODIUM CHLORIDE 0.9% 1000ML 500 ML IV ONE (10:08)
[2022-06-02 10:28] LABS: Basophils # (auto) 0.05 K/uL (0-0.2); Basophils % (auto) 0.7 %; Eosinophils # (auto) 0.06 K/uL (0-0.50); Eosinophils % (auto) 0.8 %; Hematocrit (blood only) 41.5 % (42.0-52.0); Hemoglobin 14.1 g/dl (14.0-18.0); Immature Granulocytes # (auto) 0.02 K/uL (0.01-0.20); Immature Granulocytes % (auto) 0.3 %; Lymphocytes # (auto) 1.34 K/uL (1.2-3.4); Lymphocytes % (auto) 17.7 %; Mean Corpuscular Hemoglobin 29.6 pg (25.0-34.0); Mean Corpuscular Volume 87.2 fL (80.0-100.0); Mean Platelet Volume 12.2 fL (9.4-12.4); Monocytes # (auto) 0.53 K/uL (0.11-0.59); Neutrophils # (auto) 5.56 K/uL (1.40-6.50); Neutrophils % (auto) 73.5 %; Platelet Count 193 K/uL (130-400); RDW Coefficient of Variation 12.7 % (11.5-14.5); RDW Standard Deviation 40.5 fL (36.4-46.3); Red Blood Count 4.76 M/uL (4.70-6.10); White Blood Count 7.56 K/ul (4.8-10.8)
--- NOTE | 2022-06-02 10:34 | XRay Report ---
XR chest 1V portable CLINICAL HISTORY: weakness TECHNIQUE: Single frontal radiograph of the chest was obtained. Comparison: Comparison is made to chest radiograph 04/11/2021 FINDINGS: Exam is limited by underpenetration. Cardiomegaly is noted. The lungs are clear. No evidence of pleur al effusion or pneumothorax. IMPRESSION: No acute chest disease. Cardiomegaly is noted. ACT 112: Negative or not required by law. Electronically signed by: Syed Hagan M.D. 06/02/2022 10:32 AM
[2022-06-02] MEDS ORDERED: NovoLIN-R INSULIN PER UNIT CHARGE IV STA ×2 (10:53→10:57)
[2022-06-02 10:56] LABS: Albumin Globulin Ratio 1.6 (0.9-2); Albumin Level 4.2 gm/dl (3.4-5.0); BUN Creatinine Ratio 23.5 (10-20); Bilirubin,Total 0.6 mg/dl (0.2-1.0); Calcium 9.4 mg/dl (8.6-10.3); Est GFR (African American) 59.9 ml/min; Est GFR (Non-African American) 51.7 ml/min; Globulin 2.7 gm/dl (2.5-4.0); Magnesium 2.6 mg/dl (1.7-2.4); Potassium 5.2 mmol/L (3.5-5.1); Total Protein 6.9 gm/dl (6.0-8.3)
[2022-06-02] MEDS ORDERED: INSULIN PROTOCOL GOAL RANGE ONE (10:57)
[2022-06-02] MEDS ORDERED: STAT IV STA (10:57)
[2022-06-02] MEDS ORDERED: MODERATE STRESS LEVEL ONE (11:00)
[2022-06-02] MEDS ORDERED: INSULIN REGULAR 250 UNITS in SODIUM CHLORIDE 0.9% 247.5 ML IV SCH (11:00)
[2022-06-02] MEDS ORDERED: INSULIN ASPART PER UNIT CHARGE SC SCH (11:30)
[2022-06-02] MEDS: INSULIN REGULAR 250 UNITS in SODIUM CHLORIDE 0.9% 247.5 ML IV SCH (11:38)
--- NOTE | 2022-06-02 11:47 | History & Physical Report ---
Date of Service June 02, 2022 Assessment & Plan (1) DM ketoacidosis type II, uncontrolled: (2) Acute hyperglycemia: Plan: - Admit to pcu - Continue insulin gtt, was titrated upward and considered in mild DKA with VBG results, also started on plasmalyte at 250 ml/hr with potassium and dextrose once at goal additive - Trending A1H glucose checks, Q4H BMP while on insulin gtt, check VBG q4H - Glucose > 700, AG of 14, K 5.2, Na 123 on admission - Last A1C 6.3 on 12/03/21 - recheck today - Diet and lifestyle modifications discussed while at bedside, will order diabetic consultation, dietitian consult - Pt is only on ozempic once weekly as an outpatient - discussed that he may require insulin upon discharge and he is agreeable if necessary -- he is new to the diagnosis since last November - Vmware Engineer and assistant health educator consults placed (3) Chronic diastolic CHF (congestive heart failure): Plan: - Last echo from Mar 2021 showing preserved EF with diastolic dysfunction - No need to repeat echo at this time, appears euvolemic -May continue on Lasix, spironolactone, carvedilol -Holding lisinopril with borderline soft BP today, recheck at 120/68, patient did take all his morning medications (4) Morbid obesity with BMI of 40.0-44.9, adult: Plan: -BMI of 45.9 -Diet and exercise modification discussed with hyperglycemia as above (5) Chronic anticoagulation: (6) Factor V Leiden mutation: Plan: -Continue on Coumadin with alternating doses of 5 and 10 mg daily, INR pending today, trend with a.m. labs -History of pulmonary embolism and left lower leg DVT in his 30s, patient has chronic swelling in the left leg secondary to history of clot there. DVT PPx: Teds, SCDs, Coumadin CODE STATUS full code Dispo: From home, lives with , likely to remain in the hospital x1 to 2 days A total of 76 minutes were spent with greater than 50% of that time face to face with the patient, personally reviewing all current laboratories, imaging studies, past medication reconciliation, outpatient chart review, and discussion with specialists to collaborate care for the patient with attending. Please see attending documentation for corrections and/or additions. History of Present Illness Primary Care Provider: Lul Goff MD This is a 57-year-old male with PMHx of chronic diastolic CHF, HTN, HLD, factor V Leiden mutation on Coumadin, history of PE and lower left leg ( still with residual swelling), DM type II, morbid obesity with a BMI of 45.9 who presents to the ER with elevated glucose greater than 700. He reports not feeling well for quite some time, with worsening nausea in the past 4 days, with vomiting 1-2 times daily. Pt does not check his glucose at home, and reports that he is newly diagnosed with DM II last Nov 2021 by his PCP. He was started on ozempic Inj around that time and is taking is taking it once weekly on Sundays. It was increasd from 0.25 to 0.5, but hasn't been on any other medication. He does not been doing diet modification or exercise. 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 He was there this morning and states that he didn't look well so nursing staff checked his blood pressure which was in the 90s/70s, and glucometer reading was "H", meaning greater than 600 so one of the nursing administrators drove him here to the hospital. Here his glucose is 702, K 5.2, Na 123, AG 14 and mag is 2.6. Allergies Allergy/AdvReac Type Severity Reaction Status Date / Time Penicillins Allergy Unknown unable to Verified 04/11/21 14:30 recall Home Medications Medication Instructions Recorded Confirmed Type celecoxib 100 mg capsule (Celebrex) 100 mg PO BID PRN Pain #0 caps 11/19/16 06/02/22 History multivitamin 1 tab PO DAILY #0 tabs 11/19/16 06/02/22 History warfarin 5 mg tablet 10 mg PO 4XWK 90 days #0 tabs 11/19/16 06/02/22 History buspirone 5 mg tablet 5 mg PO BID 04/11/21 06/02/22 History escitalopram oxalate 20 mg tablet 20 mg PO DAILY 04/11/21 06/02/22 History lisinopril 20 mg tablet 20 mg PO QAM #30 tabs 04/14/21 06/02/22 Rx spironolactone 25 mg tablet 25 mg PO BID #60 tabs 04/14/21 06/02/22 Rx carvedilol 25 mg tablet 25 mg PO BID 06/02/22 06/02/22 History furosemide 40 mg tablet 40 mg PO 4XWK 06/02/22 06/02/22 History furosemide 40 mg tablet 80 mg PO 3XWK 06/02/22 06/02/22 History rosuvastatin 10 mg tablet 10 mg PO QAM 06/02/22 06/02/22 History semaglutide 0.25 mg or 0.5 mg (2 0.5 mg subcut WK 06/02/22 06/02/22 History mg/1.5 mL) subcutaneous pen injector (Ozempic) warfarin 5 mg tablet 5 mg PO 3XWK 06/02/22 06/02/22 History Past Med/Surg History Medical History Abnormal CT scan, chest Abnormal CXR Acute diastolic heart failure Chest discomfort Deep vein thrombosis DVT (deep venous thrombosis) DVT prophylaxis Elevated troponin I level Factor V Leiden mutation H/O: HTN (hypertension) Hypokalemia Near syncope TATIANA on CPAP Palpitation Surgical History Hx of total knee arthroplasty Family History Other Factor V Leiden Heart disease Social History Smoking Status: Current some day smoker Tobacco Type: Cigars Hx Alcohol Use: Yes Hx Substance Use: No Preferred Language: Comoran Communication Ability: Effective Welder Explosion Required: No Beliefs That Will Affect Care: None marital status: Current Living Situation: Spouse How many Children do You have: 1 Feels Safe at Home: Yes Safety Concerns: Feels Safe At This Time Assistive Devices: Glasses Results & Data Results & Data Vital Signs (Past 12 Hours) Vital Signs Temp Pulse Resp BP Pulse Ox O2 Del Method 06/02/22 09:30 36.8 C 73 18 98/64 L 97 Room Air Laboratory Results 06/02/22 06/02/22 06/02/22 10:10 10:10 10:10 WBC 7.56 RBC 4.76 Hgb 14.1 Hct 41.5 L MCV 87.2 MCH 29.6 MCHC 34.0 RDW Std Deviation 40.5 RDW Coeff of Lisha 12.7 Plt Count 193 MPV 12.2 Immature Gran % (Auto) 0.3 Neut % (Auto) 73.5 Lymph % (Auto) 17.7 [place] % (Auto) 7.0 Eos % (Auto) 0.8 Baso % (Auto) 0.7 Neut # (Auto) 5.56 Lymph # (Auto) 1.34 [place] # (Auto) 0.53 Eos # (Auto) 0.06 Baso # (Auto) 0.05 Immature Gran # (Auto) 0.02 Sodium 123 L Potassium 5.2 H Chloride 90 L Carbon Dioxide 19 L Anion Gap 14 H BUN 35 H Creatinine 1.49 H Est Cr Clr Drug Dosing 75.0 Est GFR ( Amer) 59.9 Est GFR (Non-Af Amer) 51.7 BUN/Creatinine Ratio 23.5 H Glucose 703 H* POC Glucose Calcium 9.4 Magnesium 2.6 H Total Bilirubin 0.6 AST 38 ALT 43 Alkaline Phosphatase 63 Total Protein 6.9 Albumin 4.2 Globulin 2.7 Albumin/Globulin Ratio 1.6 TSH 2.548 06/02/22 10:04 WBC RBC Hgb Hct MCV MCH MCHC RDW Std Deviation RDW Coeff of Lisha Plt Count MPV Immature Gran % (Auto) Neut % (Auto) Lymph % (Auto) [place] % (Auto) Eos % (Auto) Baso % (Auto) Neut # (Auto) Lymph # (Auto) [place] # (Auto) Eos # (Auto) Baso # (Auto) Immature Gran # (Auto) Sodium Potassium Chloride Carbon Dioxide Anion Gap BUN Creatinine Est Cr Clr Drug Dosing Est GFR ( Amer) Est GFR (Non-Af Amer) BUN/Creatinine Ratio Glucose POC Glucose > 600 H* Calcium Magnesium Total Bilirubin AST ALT Alkaline Phosphatase Total Protein Albumin Globulin Albumin/Globulin Ratio TSH Diagnostic Findings Chest X-Ray 06/02/22 09:55 XR chest 1V portable CLINICAL HISTORY: weakness TECHNIQUE: Single frontal radiograph of the chest was obtained. Comparison: Comparison is made to chest radiograph 04/11/2021 FINDINGS: Exam is limited by underpenetration. Cardiomegaly is noted. The lungs are clear. No evidence of pleural effusion or pneumothorax. IMPRESSION: No acute chest disease. Cardiomegaly is noted. ACT 112: Negative or not required by law. Electronically signed by: Syed Hagan M.D. 06/02/2022 10:32 AM Code Status & VTE Plan Code Status Full code - discussed with the patient at bedside Supervising Physician Co-Signing Physician Notes Patient was seen and examined independently. Chart reviewed. Case discussed with JOSIAS.
[2022-06-02 12:59] LABS: INR 1.7 (0.9-1.1); Partial Thromboplastin Ratio 1.2; Partial Thromboplastin Time 33.3 Seconds (21.0-31.0); Prothrombin Time 17.2 Seconds (9.0-12.0)
[2022-06-02] MEDS ORDERED: CELECOXIB 100 MG CAP PO PRN (13:00)
[2022-06-02] MEDS ORDERED: GLUCOSE 40% GEL 15 GM TUBE PO PRN (13:00)
[2022-06-02] MEDS ORDERED: ACETAMINOPHEN 325 MG TAB PO PRN (13:00)
[2022-06-02] MEDS ORDERED: CARBOHYDRATES FOR HYPOGLYCEMIA PO PRN (13:00)
[2022-06-02] MEDS ORDERED: GLUCAGON FOR INJ 1 MG VIAL SQ PRN (13:00)
[2022-06-02] MEDS ORDERED: ONDANSETRON INJ 2 MG/ML 2 ML VIAL IV PRN (13:00)
[2022-06-02] MEDS ORDERED: PHARMACY GLYCEMIC MGMT CONSULT PRN (13:00)
[2022-06-02] MEDS ORDERED: DEXTROSE 50% 50 ML SYRINGE IV PRN (13:00)
[2022-06-02] MEDS ORDERED: GLUCOSE 10 TAB/TUBE PO PRN (13:00)
[2022-06-02 13:27] LABS: Base Excess VBG -7.7 mEq/L; HCO3 VBG 19 mmol/L; Oxygen Saturation VBG < 60.0 %; PCO2 VBG 44 mmHg (38-50); PO2 VBG 34 mmHg; pH VBG 7.25 (7.36-7.41)
[2022-06-02 13:54] LABS: Appearance Urine Clear (Clear); Bilirubin Urine Negative (Negative); Blood Urine Negative (Negative); Color Urine Yellow; Glucose Urine UA 3+ (Negative); Ketones Urine 1+ (Negative); Leukocyte Esterase Urine Negative (Negative); Nitrite Urine Negative (Negative); Protein Urine Negative (Negative); Specific Gravity Urine 1.023 (1.000-1.030); Urobilinogen Urine Negative (Negative)
[2022-06-02] MEDS ORDERED: PLASMA-LYTE A 1,000 ML IV SCH (14:45)
[2022-06-02] MEDS ORDERED: DKA GOAL RANGE 150-250 mg/dl ONE (14:45)
[2022-06-02 14:53] LABS: BUN Creatinine Ratio 22.8 (10-20); Calcium 9.5 mg/dl (8.6-10.3); Est GFR (African American) 59.9 ml/min; Est GFR (Non-African American) 51.7 ml/min; Potassium 4.5 mmol/L (3.5-5.1)
--- NOTE | 2022-06-02 15:21 | Pharmacy Report ---
Pharmacy Glycemic Short Note 2 - Date of Service June 02, 2022 - Glycemic Short BSG Results (Last 24 hours): 06/02/22 06/02/22 06/02/22 10:04 10:10 12:42 Glucose 703 H* POC Glucose > 600 H* 550 H* 06/02/22 06/02/22 06/02/22 13:41 14:08 14:44 Glucose 547 H* POC Glucose 577 H* 518 H* OUTPATIENT ANTIDIABETIC REGIMEN: * Ozempic 0.5 mg SC weekly HbA1c pending ASSESSMENT: * TT is a 57 year old male who presents to ED with nausea/vomiting and hyperglycemia, subsequently found to be in DKA * BSG on presentation of 703 mg/dL, serum bicarb 19, anion gap 14 w/ pH of 7.25 * Insulin infusion initiated along with IV fluids * Apparent CAMILO w/ hyperkalemia (K: 5.2) * Will await repeat labs and A1c - once DKA improved will initiate basal insulin PLAN FOR INPATIENT GLYCEMIC CONTROL: * Hold outpatient diabetes medications * Insulin infusion until DKA resolved * Basal insulin * Hold at this time * Bolus insulin * NovoLog per scale ACHS or Q6hrs while NPO * Nutritional / Prandial insulin per carb ratio of 1 unit per 7 grams CHO consumed
[2022-06-02] MEDS ORDERED: WARFARIN SOD 10 MG TAB PO SCH (16:00)
[2022-06-02] MEDS: PENDING 1/2NSS+20mEq KCL IVF SCH ×3 (16:21→17:02)
[2022-06-02] MEDS: SODIUM CHLOR 0.45% + 20MEQ KCL 20 MEQ/1,000 ML BAG IV SCH ×2 (16:43→20:21)
[2022-06-02 17:34] LABS: BUN Creatinine Ratio 24.8 (10-20); Calcium 9.5 mg/dl (8.6-10.3); Creatinine Clr Calc Pharmacy 79.2 ml/min; Est GFR (African American) 64.1 ml/min; Est GFR (Non-African American) 55.3 ml/min; Potassium 4.4 mmol/L (3.5-5.1)
[2022-06-02] MEDS: INSULIN ASPART PER UNIT CHARGE SC SCH ×2 (17:35→20:28)
[2022-06-02 17:49] LABS: Magnesium 2.6 mg/dl (1.7-2.4); Phosphorus 3.9 mg/dl (2.5-4.9)
[2022-06-02 19:24] LABS: Estimated Average Glucose 329 mg/dl; Hemoglobin A1C 13.1 % (4.5-5.6)
[2022-06-02] MEDS: SPIRONOLACTONE 25 MG TAB PO SCH (20:17)
[2022-06-02] MEDS: busPIRone 5 MG TAB PO SCH (20:18)
[2022-06-02] MEDS: carvediloL 25 MG TAB PO SCH (20:21)
[2022-06-02] MEDS ORDERED: LANTUS PER UNIT CHARGE SC ONE (21:15)
[2022-06-02 21:33] LABS: BUN Creatinine Ratio 18.5 (10-20); Creatinine Clr Calc Pharmacy 50.3 ml/min; Est GFR (Non-African American) 31.9 ml/min; Magnesium 2.6 mg/dl (1.7-2.4); Phosphorus 3.9 mg/dl (2.5-4.9); Potassium 4.4 mmol/L (3.5-5.1)
[2022-06-03] MEDS: SODIUM CHLOR 0.45% + 20MEQ KCL 20 MEQ/1,000 ML BAG IV SCH ×3 (00:26→14:43)
[2022-06-03] MEDS: D5W AND 1/2NSS + 20MEQ KCL 20 MEQ/1,000 ML BAG IV SCH ×2 (01:25→05:14)
[2022-06-03] MEDS: PENDING D5 1/2NS+20mEq KCL IVF SCH ×3 (01:27→01:29)
[2022-06-03 01:37] LABS: Magnesium 2.6 mg/dl (1.7-2.4); Phosphorus 3.8 mg/dl (2.5-4.9)
[2022-06-03 06:03] LABS: Hematocrit (blood only) 36.1 % (42.0-52.0); Hemoglobin 12.4 g/dl (14.0-18.0); Mean Corpuscular Hemoglobin 29.5 pg (25.0-34.0); Mean Corpuscular Hgb Conc 34.3 g/dL (32.0-36.0); Mean Platelet Volume 12.1 fL (9.4-12.4); Platelet Count 167 K/uL (130-400); RDW Coefficient of Variation 12.7 % (11.5-14.5); RDW Standard Deviation 39.6 fL (36.4-46.3)
[2022-06-03 06:13] LABS: Magnesium 2.5 mg/dl (1.7-2.4); Phosphorus 3.8 mg/dl (2.5-4.9)
[2022-06-03 06:15] LABS: BUN Creatinine Ratio 27.6 (10-20); Calcium 8.1 mg/dl (8.6-10.3); Chol HDL Ratio 4.6 (0-5); Est GFR (Non-African American) 53.5 ml/min; Magnesium 2.4 mg/dl (1.7-2.4); Potassium 4.1 mmol/L (3.5-5.1)
[2022-06-03 06:42] LABS: INR 1.8 (0.9-1.1); Prothrombin Time 18.6 Seconds (9.0-12.0)
[2022-06-03] MEDS ORDERED: LANTUS PER UNIT CHARGE SC ONE ×3 (07:30→20:00)
[2022-06-03] MEDS: carvediloL 25 MG TAB PO SCH ×2 (08:12→20:19)
[2022-06-03] MEDS: SPIRONOLACTONE 25 MG TAB PO SCH ×2 (08:12→20:19)
[2022-06-03] MEDS: ESCITALOPRAM OXALATE 20 MG TAB PO SCH (08:13)
[2022-06-03] MEDS: ROSUVASTATIN CALCIUM 10 MG TAB PO SCH (08:13)
[2022-06-03] MEDS ORDERED: FUROSEMIDE 80 MG TAB PO SCH (09:00)
[2022-06-03] MEDS: INSULIN ASPART PER UNIT CHARGE SC SCH ×4 (09:04→20:18)
[2022-06-03] MEDS ORDERED: NSS + 20MEQ KCL 20 MEQ/1,000 ML BAG IV SCH (09:45)
[2022-06-03] MEDS: busPIRone 5 MG TAB PO SCH ×2 (10:23→20:19)
[2022-06-03] MEDS: INSULIN REGULAR 250 UNITS in SODIUM CHLORIDE 0.9% 247.5 ML IV SCH (10:23)
[2022-06-03 10:45] LABS: Magnesium 2.3 mg/dl (1.7-2.4); Phosphorus 2.8 mg/dl (2.5-4.9)
--- NOTE | 2022-06-03 13:11 | Electrocardiogram Report ---
Test Reason : Blood Pressure : / mmHG Vent. Rate : 070 BPM Atrial Rate : 070 BPM P-R Int : 166 ms QRS Dur : 102 ms QT Int : 408 ms P-R-T Axes : 056 093 035 degrees QTc Int : 440 ms Normal sinus rhythm Rightward axis Borderline ECG When compared with ECG of 13-APR-2021 05:59, No significant change was found Confirmed by Samir Hameed ([id number]) on 06/03/2022 1:11:01 PM Referred By: REFERRED SELF Confirmed By:Lorenzo Hameed
[2022-06-03 13:49] LABS: BUN Creatinine Ratio 22.7 (10-20); Calcium 8.1 mg/dl (8.6-10.3); Creatinine Clr Calc Pharmacy 79.2 ml/min; Est GFR (African American) 64.1 ml/min; Est GFR (Non-African American) 55.3 ml/min; Phosphorus 2.5 mg/dl (2.5-4.9); Potassium 4.4 mmol/L (3.5-5.1)
--- NOTE | 2022-06-03 14:13 | Pharmacy Report ---
Pharmacy Glycemic Short Note 2 - Date of Service June 03, 2022 - Glycemic Short BSG Results (Last 24 hours): 06/02/22 06/02/22 06/02/22 14:08 14:44 16:02 Glucose 547 H* POC Glucose 518 H* 378 H* 06/02/22 06/02/22 06/02/22 16:03 17:01 17:02 Glucose 280 H POC Glucose 370 H* 269 H 06/02/22 06/02/22 06/02/22 17:59 19:02 20:11 Glucose POC Glucose 275 H 284 H 244 H 06/02/22 06/02/22 06/02/22 20:58 21:04 22:02 Glucose 229 H POC Glucose 225 H 185 H 06/02/22 06/03/22 06/03/22 22:59 00:09 01:04 Glucose POC Glucose 182 H 162 H 146 H 06/03/22 06/03/22 06/03/22 02:04 02:56 04:05 Glucose POC Glucose 184 H 200 H 215 H 06/03/22 06/03/22 06/03/22 04:59 05:39 06:06 Glucose 270 H POC Glucose 262 H 285 H 06/03/22 06/03/22 06/03/22 07:05 07:59 09:01 Glucose POC Glucose 276 H 281 H 344 H* 06/03/22 06/03/22 06/03/22 09:01 10:29 11:30 Glucose POC Glucose 335 H* 276 H 239 H 06/03/22 06/03/22 12:37 13:00 Glucose 251 H POC Glucose 202 H OUTPATIENT ANTIDIABETIC REGIMEN: * Ozempic 0.5 mg SC weekly HbA1c pending ASSESSMENT: 06/03 * Labs improving this morning, will try and transition off insulin drip later today. Patient received Lantus 30 units last evening and also again this AM. * Fluids changed this morning, dextrose removed - anticipate BSGs to be improving. Set CR given with lunch * Afternoon BSG 245 mg/dL - about 2 hours after insulin given at lunch to cover carbs. Plan to give one time dose of correctional insulin and turn off insulin drip. Will also repeat basal and give another 30 units x 1 now (equivalent to stress of 3 dosing) * Will continue with novolog Q4 hour checks with overnight checks 06/02 * TT is a 57 year old male who presents to ED with nausea/vomiting and hyperglycemia, subsequently found to be in DKA * BSG on presentation of 703 mg/dL, serum bicarb 19, anion gap 14 w/ pH of 7.25 * Insulin infusion initiated along with IV fluids * Apparent CAMILO w/ hyperkalemia (K: 5.2) * Will await repeat labs and A1c - once DKA improved will initiate basal insulin PLAN FOR INPATIENT GLYCEMIC CONTROL: * Insulin infusion put on hold this afternoon. Will trial SQ insulin this evening * Basal insulin * Lantus 30 units x 1 this AM * Repeat 30 units x 1 this afternoon to help with insulin drip transition * Bolus insulin * Start novolog Q4 hours - 110-140 / CF 10 / CR 4
[2022-06-03] MEDS ORDERED: INSULIN ASPART PER UNIT CHARGE SC ONE (14:15)
[2022-06-03] MEDS ORDERED: WARFARIN SOD 5 MG TAB PO SCH (16:00)
--- NOTE | 2022-06-03 17:25 | Hospitalist Progress Note ---
Date of Service June 03, 2022 Assessment & Plan (1) DM ketoacidosis type II, uncontrolled: (2) Acute hyperglycemia: Plan: DKA HbA1c 13.1 Recently diagnosed to have diabetes mellitus type 2 --Recently started on Ozempic --Admits to being noncompliant with diet, exercise, weight management -- Given history of autoimmune conditions in the family, will obtain insulin antibody, IA 2 antibody, zinc transporter 8 antibody, FE 65 Anion gap closed Transition to SQ insulin as able Tolerating diet Appreciate glycemic pharmacy and life educator help Change IV fluids to normal saline Monitor blood glucose levels Acute kidney injury-POA Cr: 2.2>>1.41 Avoid nephrotoxic agents as able Monitor renal function Continue IV fluids Hyponatremia Likely due to hyperglycemia Monitor renal function Mental status at baseline (3) Chronic diastolic CHF (congestive heart failure): Plan: - Last echo from Mar 2021 showing preserved EF with diastolic dysfunction -continue Lasix, spironolactone, carvedilol for now Lisinopril held due to CAMILO If no improvement in renal function, will plan to hold diuretics as well (4) Morbid obesity with BMI of 40.0-44.9, adult: Plan: -BMI of 45.9 -Diet and exercise modification discussed with hyperglycemia as above (5) Chronic anticoagulation: (6) Factor V Leiden mutation: Plan: -H/O PE and left LE DVT Subtherapeutic INR INR 1.8 Continue Coumadin DVT Px: Teds, SCDs, Coumadin CODE STATUS full code Admission and Anticipated Discharge Date Admission Date: June 02, 2022 Subjective Patient is seen and examined at bedside States feeling tired Otherwise feels improved Denies any chest pain, dyspnea, dizziness, nausea, abdominal pain No other complaints Review of Systems Review of Systems: All systems reviewed & are unremarkable except as noted in Subjective Physical Exam Physical Exam: Physical Exam: Vitals signs as noted above General Appearance:Morbidly Obese, no apparent distress Head: normocephalic, Atraumatic Eyes: normal inspection, EOMI Neck: supple, Trachea midline Respiratory/Chest: Normal breath sounds, CTA, No accessory muscle use Cardiovascular: S1, S2, No murmur Abdomen/GI:Soft, Non tender, protuberant, bowel sounds present Extremities/Musculoskeletal:normal inspection, Trace pedal edema Neurologic/Psych:AAOX3, grossly no focal neurological deficits Skin: normal color, warm Results & Data Results & Data Vital Signs (Past 12 Hours) Vital Signs Temp Pulse Pulse Resp BP Pulse Ox O2 Del Method 06/03/22 16:11 36.7 C 76 18 117/77 96 Room Air 06/03/22 15:39 78 06/03/22 11:31 36.6 C 71 18 99/64 L 96 Room Air 06/03/22 08:00 69 06/03/22 07:13 36.8 C 70 19 118/74 98 Room Air Laboratory Results Short CBC 06/03/22 Range/Units 05:39 WBC 5.70 (4.8-10.8) K/ul Hgb 12.4 L (14.0-18.0) g/dl Hct 36.1 L (42.0-52.0) % Plt Count 167 (130-400) K/uL BMP 06/02/22 06/02/22 06/03/22 17:02 20:58 05:39 Sodium 131 L 128 L 129 L Potassium 4.4 4.4 4.1 Chloride 98 100 100 Carbon Dioxide 21 18 L 20 L BUN 35 H 41 H 40 H Creatinine 1.41 H 2.22 H D 1.45 H D Glucose 280 H 229 H 270 H Calcium 9.5 9.0 8.1 L 06/03/22 13:00 Sodium 130 L Potassium 4.4 Chloride 101 Carbon Dioxide 19 L BUN 32 H Creatinine 1.41 H Glucose 251 H Calcium 8.1 L
[2022-06-03] MEDS ORDERED: SODIUM CHLORIDE 0.9% 1000ML 1,000 ML IV SCH (17:30)
[2022-06-04] MEDS: INSULIN ASPART PER UNIT CHARGE SC SCH ×5 (00:16→17:12)
[2022-06-04 06:23] LABS: Hematocrit (blood only) 38.5 % (42.0-52.0); Hemoglobin 13.1 g/dl (14.0-18.0); Mean Corpuscular Hemoglobin 29.5 pg (25.0-34.0); Mean Corpuscular Volume 86.7 fL (80.0-100.0); Mean Platelet Volume 12.1 fL (9.4-12.4); Platelet Count 150 K/uL (130-400); RDW Coefficient of Variation 12.4 % (11.5-14.5); RDW Standard Deviation 39.2 fL (36.4-46.3); Red Blood Count 4.44 M/uL (4.70-6.10); White Blood Count 4.88 K/ul (4.8-10.8)
[2022-06-04 06:35] LABS: INR 1.5 (0.9-1.1); Prothrombin Time 15.3 Seconds (9.0-12.0)
[2022-06-04 06:49] LABS: Magnesium 2.1 mg/dl (1.7-2.4); Potassium 4.1 mmol/L (3.5-5.1)
[2022-06-04 06:55] LABS: BUN Creatinine Ratio 22.2 (10-20); Creatinine Clr Calc Pharmacy 103.4 ml/min; Est GFR (African American) 88.5 ml/min; Est GFR (Non-African American) 76.3 ml/min
[2022-06-04] MEDS ORDERED: LANTUS PER UNIT CHARGE SC ONE (07:30)
[2022-06-04] MEDS: carvediloL 25 MG TAB PO SCH ×2 (09:10→19:42)
[2022-06-04] MEDS: ROSUVASTATIN CALCIUM 10 MG TAB PO SCH (09:10)
[2022-06-04] MEDS: ESCITALOPRAM OXALATE 20 MG TAB PO SCH (09:10)
[2022-06-04] MEDS: busPIRone 5 MG TAB PO SCH ×2 (09:10→19:43)
[2022-06-04] MEDS: FUROSEMIDE 40 MG TAB PO SCH (09:10)
[2022-06-04] MEDS: SPIRONOLACTONE 25 MG TAB PO SCH ×2 (09:10→19:43)
--- NOTE | 2022-06-04 10:04 | Pharmacy Report ---
Pharmacy Glycemic Short Note 2 - Date of Service June 04, 2022 - Glycemic Short BSG Results (Last 24 hours): 06/03/22 06/03/22 06/03/22 10:29 11:30 12:37 Glucose POC Glucose 276 H 239 H 202 H 06/03/22 06/03/22 06/03/22 13:00 14:09 16:44 Glucose 251 H POC Glucose 245 H 234 H 06/03/22 06/03/22 06/03/22 18:10 19:03 20:02 Glucose POC Glucose 261 H 276 H 290 H 06/03/22 06/03/22 06/03/22 21:00 22:03 23:03 Glucose POC Glucose 228 H 215 H 173 H 06/04/22 06/04/22 06/04/22 00:02 01:02 02:02 Glucose POC Glucose 158 H 140 H 136 H 06/04/22 06/04/22 06/04/22 03:01 04:01 05:02 Glucose POC Glucose 140 H 139 H 157 H 06/04/22 06/04/22 06/04/22 05:28 06:03 07:00 Glucose 151 H POC Glucose 152 H 156 H 06/04/22 08:59 Glucose POC Glucose 266 H OUTPATIENT ANTIDIABETIC REGIMEN: * Ozempic 0.5 mg SC weekly HbA1c pending ASSESSMENT: 06/04 * Patient received total of 150 units of SQ insulin + insulin drip yesterday. Insulin drip continues to run this morning ~4 units/hr. * Patient received total of 80 units of basal which was not enough to transition off insulin drip yesterday. Estimated that patient needs closer to ~250 units of insulin per day. Will titrate basal closer to ~120 total per day * Based upon a TDD of 250 units of insulin - this correlates to CR of 2. Will increase CR this AM with insulin drip. Will give one time dose of Lantus 65 units x 1 this AM, will have scale for HS for basal * Will trend BSGs with hopes to d/c insulin drip later today 06/03 * Labs improving this morning, will try and transition off insulin drip later today. Patient received Lantus 30 units last evening and also again this AM. * Fluids changed this morning, dextrose removed - anticipate BSGs to be improving. Set CR given with lunch * Afternoon BSG 245 mg/dL - about 2 hours after insulin given at lunch to cover carbs. Plan to give one time dose of correctional insulin and turn off insulin drip. Will also repeat basal and give another 30 units x 1 now (equivalent to stress of 3 dosing) * Will continue with novolog Q4 hour checks with overnight checks 06/02 * TT is a 57 year old male who presents to ED with nausea/vomiting and hyperglycemia, subsequently found to be in DKA * BSG on presentation of 703 mg/dL, serum bicarb 19, anion gap 14 w/ pH of 7.25 * Insulin infusion initiated along with IV fluids * Apparent CAMILO w/ hyperkalemia (K: 5.2) * Will await repeat labs and A1c - once DKA improved will initiate basal insulin PLAN FOR INPATIENT GLYCEMIC CONTROL: * Continues on insulin drip / potential discontinue later today * Basal insulin * Lantus 65 units x 1 this AM * Lantus 40-60 units HS * Bolus insulin - if insulin drip is put on hold, could consider * Start novolog Q4 hours - 110-140 / CF 5 / CR 2
[2022-06-04] MEDS: ENOXAPARIN INJ 40 MG/0.4 ML SYR SQ SCH ×2 (11:42→19:43)
[2022-06-04] MEDS: INSULIN REGULAR 250 UNITS in SODIUM CHLORIDE 0.9% 247.5 ML IV SCH (12:17)
[2022-06-04] MEDS ORDERED: INSULIN ASPART PER UNIT CHARGE SC ONE (14:30)
[2022-06-04] MEDS ORDERED: WARFARIN SOD 10 MG TAB PO SCH (16:00)
--- NOTE | 2022-06-04 16:19 | Hospitalist Progress Note ---
Date of Service June 04, 2022 Assessment & Plan (1) DM ketoacidosis type II, uncontrolled: (2) Acute hyperglycemia: Plan: DKA HbA1c 13.1 Recently diagnosed to have diabetes mellitus type 2 --Recently started on Ozempic --Admits to being noncompliant with diet, exercise, weight management -- Given history of autoimmune conditions in the family, will obtain insulin antibody, IA 2 antibody, zinc transporter 8 antibody, FE 65 Anion gap closed Insulin drip discontinued today Tolerating diet Appreciate glycemic pharmacy and field artillery basic help IV fluids discontinued Monitor blood glucose levels Continue SQ insulin per protocol Acute kidney injury-POA Cr: 2.2>>1.41>1.08 Avoid nephrotoxic agents as able Monitor renal function Received IV fluids Hyponatremia Likely due to hyperglycemia Monitor renal function Mental status at baseline (3) Chronic diastolic CHF (congestive heart failure): Plan: - Last echo from Mar 2021 showing preserved EF with diastolic dysfunction -continue Lasix, spironolactone, carvedilol Lisinopril held due to CAMILO Continue home diuretics (4) Morbid obesity with BMI of 40.0-44.9, adult: Plan: -BMI of 45.9 -Diet and exercise modification discussed with hyperglycemia as above (5) Chronic anticoagulation: (6) Factor V Leiden mutation: Plan: -H/O PE and left LE DVT Subtherapeutic INR INR 1.5 today Continue Coumadin Lovenox SQ till INR is therapeutic DVT Px: Teds, SCDs, Coumadin CODE STATUS full code Admission and Anticipated Discharge Date Admission Date: June 02, 2022 Subjective Patient is seen and examined at bedside Remains on insulin drip this morning Feels well otherwise No new complaints Denies any chest pain, dyspnea, dizziness, nausea, abdominal pain Review of Systems Review of Systems: All systems reviewed & are unremarkable except as noted in Subjective Physical Exam Physical Exam: Physical Exam: Vitals signs as noted above General Appearance:Morbidly Obese, no apparent distress Head: normocephalic, Atraumatic Eyes: normal inspection, EOMI Neck: supple, Trachea midline Respiratory/Chest: Normal breath sounds, CTA, No accessory muscle use Cardiovascular: S1, S2, No murmur Abdomen/GI:Soft, Non tender, protuberant, bowel sounds present Extremities/Musculoskeletal:normal inspection, Trace pedal edema Neurologic/Psych:AAOX3, grossly no focal neurological deficits Skin: normal color, warm Results & Data Results & Data Vital Signs (Past 12 Hours) Vital Signs Temp Pulse Pulse Resp BP Pulse Ox O2 Del Method 06/04/22 11:38 36.7 C 78 19 120/78 97 Room Air 06/04/22 08:00 67 06/04/22 07:38 36.6 C 73 19 131/90 97 Room Air Laboratory Results Short CBC 06/04/22 Range/Units 05:28 WBC 4.88 (4.8-10.8) K/ul Hgb 13.1 L (14.0-18.0) g/dl Hct 38.5 L (42.0-52.0) % Plt Count 150 (130-400) K/uL BMP 06/04/22 05:28 Sodium 135 L Potassium 4.1 Chloride 106 Carbon Dioxide 20 L BUN 24 H Creatinine 1.08 D Glucose 151 H Calcium 8.0 L
[2022-06-04] MEDS ORDERED: INSULIN HUMAN REGULAR IV BOLUS 5 UNITS in SYRINGE 0 ML IV ONE (20:15)
[2022-06-04] MEDS ORDERED: LANTUS PER UNIT CHARGE SC SCH (21:00)
[2022-06-05 06:18] LABS: BUN Creatinine Ratio 17.8 (10-20); Calcium 8.4 mg/dl (8.6-10.3); Creatinine Clr Calc Pharmacy 110.6 ml/min; Est GFR (African American) 95.9 ml/min; Est GFR (Non-African American) 82.8 ml/min; Phosphorus 3.1 mg/dl (2.5-4.9); Potassium 3.9 mmol/L (3.5-5.1)
[2022-06-05 06:28] LABS: INR 1.2 (0.9-1.1); Prothrombin Time 13.5 Seconds (9.0-12.0)
[2022-06-05] MEDS: INSULIN ASPART PER UNIT CHARGE SC SCH ×3 (08:26→17:24)
[2022-06-05] MEDS: SPIRONOLACTONE 25 MG TAB PO SCH (08:30)
[2022-06-05] MEDS: ESCITALOPRAM OXALATE 20 MG TAB PO SCH (08:30)
[2022-06-05] MEDS: FUROSEMIDE 40 MG TAB PO SCH (08:30)
[2022-06-05] MEDS: carvediloL 25 MG TAB PO SCH (08:31)
[2022-06-05] MEDS: busPIRone 5 MG TAB PO SCH (08:31)
[2022-06-05] MEDS: ROSUVASTATIN CALCIUM 10 MG TAB PO SCH (08:31)
[2022-06-05] MEDS ORDERED: LANTUS PER UNIT CHARGE SC SCH (09:00)
[2022-06-05] MEDS: ENOXAPARIN INJ 40 MG/0.4 ML SYR SQ SCH (10:09)
--- NOTE | 2022-06-05 13:33 | Pharmacy Report ---
Pharmacy Glycemic Short Note 2 - Date of Service June 05, 2022 - Glycemic Short BSG Results (Last 24 hours): 06/04/22 06/04/22 06/04/22 14:01 15:58 19:59 Glucose POC Glucose 284 H 282 H 282 H 06/04/22 06/04/22 06/05/22 22:09 22:53 00:00 Glucose POC Glucose 226 H 202 H 201 H 06/05/22 06/05/22 06/05/22 00:54 01:51 02:55 Glucose POC Glucose 179 H 176 H 174 H 06/05/22 06/05/22 06/05/22 03:54 05:49 06:02 Glucose 171 H POC Glucose 170 H 166 H 06/05/22 06/05/22 07:58 11:34 Glucose POC Glucose 188 H 299 H OUTPATIENT ANTIDIABETIC REGIMEN: * Ozempic 0.5 mg SC weekly * HbA1c: 13.1% (06/05/22) ASSESSMENT: 06/05: * Narinder received ~375 units of insulin yesterday including 130 units basal + 120 units bolus + 125 units from the insulin drip. BSGs remained elevated for most of the day yesterday. * AM BSG was 166 mg/dL today and insulin drip ran at 5 units/hr throughout the night. At this point, the insulin drip is preventing patient discharge. Therefore, will place the drip on hold and continue to be increasingly aggressive with subcutaneous insulin. Okay with blood sugars in the 200's. Goal is prevent lows and re-entry into DKA. * Increased basal dose by ~25% today. Tightened Novolog as well. Will check blood sugars every 4 hours until BSGs under control. * 80 units is the max dose a Lantus pen can administer in one injection. T herefore, consideration for change to insulin vial is warranted this evening. 06/04: * Patient received total of 150 units of SQ insulin + insulin drip yesterday. Insulin drip continues to run this morning ~4 units/hr. * Patient received total of 80 units of basal which was not enough to transition off insulin drip yesterday. Estimated that patient needs closer to ~250 units of insulin per day. Will titrate basal closer to ~120 total per day * Based upon a TDD of 250 units of insulin - this correlates to CR of 2. Will increase CR this AM with insulin drip. Will give one time dose of Lantus 65 un its x 1 this AM, will have scale for HS for basal * Will trend BSGs with hopes to d/c insulin drip later today 06/03: * Labs improving this morning, will try and transition off insulin drip later today. Patient received Lantus 30 units last evening and also again this AM. * Fluids changed this morning, dextrose removed - anticipate BSGs to be improving. Set CR given with lunch * Afternoon BSG 245 mg/dL - about 2 hours after insulin given at lunch to cover carbs. Plan to give one time dose of correctional insulin and turn off insulin drip. Will also repeat basal and give another 30 units x 1 now (equivalent to stress of 3 dosing) * Will continue with novolog Q4 hour checks with overnight checks 06/02: * TT is a 57 year old male who presents to ED with nausea/vomiting and hyperglycemia, subsequently found to be in DKA * BSG on presentation of 703 mg/dL, serum bicarb 19, anion gap 14 w/ pH of 7.25 * Insulin infusion initiated along with IV fluids * Apparent CAMILO w/ hyperkalemia (K: 5.2) * Will await repeat labs and A1c - once DKA improved will initiate basal insulin PLAN FOR INPATIENT GLYCEMIC CONTROL: * Insulin drip on hold since around 0900 this AM - no plans to continue at this time * Basal insulin * Lantus 80 units SC BID * Bolus insulin * Novolog q4h * Goal Range: 110 - 140 mg/dL * Correction Factor: 5 mg/dL/unit * Carb Ratio: 1 unit/g CHO
--- NOTE | 2022-06-05 15:34 | Hospitalist Progress Note ---
Date of Service June 05, 2022 Assessment & Plan (1) DM ketoacidosis type II, uncontrolled: (2) Acute hyperglycemia: Plan: DKA HbA1c 13.1 Recently diagnosed to have diabetes mellitus type 2 --Recently started on Ozempic --Admits to being noncompliant with diet, exercise, weight management -- Given history of autoimmune conditions in the family, will obtain insulin antibody, IA 2 antibody, zinc transporter 8 antibody, FE 65 Anion gap closed Insulin drip discontinued Tolerating diet Appreciate glycemic pharmacy and programming development project manager help IV fluids discontinued Monitor blood glucose levels Continue SQ insulin per protocol Plan to discharge home today Acute kidney injury-POA Cr: 2.2>>1.41>1.01 Avoid nephrotoxic agents as able Monitor renal function Received IV fluids Hyponatremia Likely due to hyperglycemia Monitor renal function Mental status at baseline Stable (3) Chronic diastolic CHF (congestive heart failure): Plan: - Last echo from Mar 2021 showing preserved EF with diastolic dysfunction -continue Lasix, spironolactone, carvedilol Lisinopril held due to CAMILO Continue home diuretics (4) Morbid obesity with BMI of 40.0-44.9, adult: Plan: -BMI of 45.9 -Diet and exercise modification discussed with hyperglycemia as above (5) Chronic anticoagulation: (6) Factor V Leiden mutation: Plan: -H/O PE and left LE DVT Subtherapeutic INR INR 1.2 today Continue Coumadin Advised to follow-up with Coumadin clinic upon discharge DVT Px: Teds, SCDs, Coumadin CODE STATUS full code Admission and Anticipated Discharge Date Admission Date: June 02, 2022 Subjective Patient is seen and examined at bedside Doing well today No new complaints Denies any chest pain, dyspnea, dizziness, nausea, abdominal pain Blood glucose levels better today Review of Systems Review of Systems: All systems reviewed & are unremarkable except as noted in Subjective Physical Exam Physical Exam: Physical Exam: Vitals signs as noted above General Appearance:Morbidly Obese, no apparent distress Head: normocephalic, Atraumatic Eyes: normal inspection, EOMI Neck: supple, Trachea midline Respiratory/Chest: Normal breath sounds, CTA, No accessory muscle use Cardiovascular: S1, S2, No murmur Abdomen/GI:Soft, Non tender, protuberant, bowel sounds present Extremities/Musculoskeletal:normal inspection, Trace pedal edema Neurologic/Psych:AAOX3, grossly no focal neurological deficits Skin: normal color, warm Results & Data Results & Data Vital Signs (Past 12 Hours) Vital Signs Temp Pulse Resp BP Pulse Ox O2 Del Method 06/05/22 15:17 36.8 C 83 19 126/89 97 Room Air 06/05/22 11:50 36.5 C 81 17 135/87 96 Room Air 06/05/22 07:42 36.6 C 73 18 144/85 H 97 Room Air, CPAP 06/05/22 03:59 36.6 C 69 18 129/85 98 CPAP Laboratory Results [facility] 06/05/22 05:49 Sodium 134 L Potassium 3.9 Chloride 105 Carbon Dioxide 21 BUN 18 Creatinine 1.01 Glucose 171 H Calcium 8.4 L
[2022-06-05] MEDS ORDERED: WARFARIN SOD 6 MG TAB PO SCH (16:00)
--- NOTE | 2022-06-05 16:52 | Discharge Summary ---
Date of Service June 05, 2022 Admission HPI Per Admitting Provider This is a 57-year-old male with PMHx of chronic diastolic CHF, HTN, HLD, factor V Leiden mutation on Coumadin, history of PE and lower left leg ( still with residual swelling), DM type II, morbid obesity with a BMI of 45.9 who presents to the ER with elevated glucose greater than 700. He reports not feeling well for quite some time, with worsening nausea in the past 4 days, with vomiting 1-2 times daily. Pt does not check his glucose at home, and reports that he is newly diagnosed with DM II last Nov 2021 by his PCP. He was started on ozempic Inj around that time and is taking is taking it once weekly on Sundays. It was increasd from 0.25 to 0.5, but hasn't been on any other medication. He does not been doing diet modification or exercise. 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 He was there this morning and states that he didn't look well so nursing staff checked his blood pressure which was in the 90s/70s, and glucometer reading was "H", meaning greater than 600 so one of the nursing administrators drove him here to the hospital. Here his glucose is 702, K 5.2, Na 123, AG 14 and mag is 2.6. Principal Diagnosis Diabetic ketoacidosis Acute kidney injury Uncontrolled diabetes mellitus type 2 Discharge Exam Physical Exam: Vitals signs as noted above General Appearance:Morbidly Obese, no apparent distress Head: normocephalic, Atraumatic Eyes: normal inspection, EOMI Neck: supple, Trachea midline Respiratory/Chest: Normal breath sounds, CTA, No accessory muscle use Cardiovascular: S1, S2, No murmur Abdomen/GI:Soft, Non tender, protuberant, bowel sounds present Extremities/Musculoskeletal:normal inspection, Trace pedal edema Neurologic/Psych:AAOX3, grossly no focal neurological deficits Skin: normal color, warm Discharge Data Allergies Allergy/AdvReac Type Severity Reaction Status Date / Time Penicillins Allergy Unknown unable to Verified 04/11/21 14:30 recall Consultations 06/02/22 10:59 ED Decision to Admit Stat Procedures Performed Laboratory Results WBC 4.88 K/ul (4.8-10.8) 06/04/22 05:28 RBC 4.44 M/uL (4.70-6.10) L 06/04/22 05:28 Hgb 13.1 g/dl (14.0-18.0) L 06/04/22 05:28 Hct 38.5 % (42.0-52.0) L 06/04/22 05:28 MCV 86.7 fL (80.0-100.0) 06/04/22 05:28 MCH 29.5 pg (25.0-34.0) 06/04/22 05:28 MCHC 34.0 g/dL (32.0-36.0) 06/04/22 05:28 RDW Std Deviation 39.2 fL (36.4-46.3) 06/04/22 05: RDW Coeff of Lisha 12.4 % (11.5-14.5) 06/04/22 05: Plt Count 150 K/uL (130-400) 06/04/22 05:28 MPV 12.1 fL (9.4-12.4) 06/04/22 05:28 Immature Gran % (Auto) 0.3 % 06/02/22 10:10 Neut % (Auto) 73.5 % 06/02/22 10:10 Lymph % (Auto) 17.7 % 06/02/22 10:10 [place] % (Auto) 7.0 % 06/02/22 10:10 Eos % (Auto) 0.8 % 06/02/22 10:10 Baso % (Auto) 0.7 % 06/02/22 10:10 Neut # (Auto) 5.56 K/uL (1.40-6.50) 06/02/22 10:10 Lymph # (Auto) 1.34 K/uL (1.2-3.4) 06/02/22 10:10 [place] # (Auto) 0.53 K/uL (0.11-0.59) 06/02/22 10:10 Eos # (Auto) 0.06 K/uL (0-0.50) 06/02/22 10:10 Baso # (Auto) 0.05 K/uL (0-0.2) 06/02/22 10:10 Immature Gran # (Auto) 0.02 K/uL (0.01-0.20) 06/02/22 10:10 PT 13.5 Seconds (9.0-12.0) H 06/05/22 05:49 INR 1.2 (0.9-1.1) H 06/05/22 05:49 APTT 33.3 Seconds (21.0-31.0) H 06/02/22 12:06 PTT Ratio 1.2 06/02/22 12:06 VBG pH 7.38 (7.36-7.41) 06/05/22 05:49 VBG pCO2 44 mmHg (38-50) 06/02/22 12:56 VBG pO2 34 mmHg 06/02/22 12:56 VBG HCO3 19 mmol/L 06/02/22 12:56 VBG O2 Saturation < 60.0 % 06/02/22 12:56 VBG Base Excess -7.7 mEq/L 06/02/22 12:56 Sodium 134 mmol/L (136-145) L 06/05/22 05:49 Potassium 3.9 mmol/L (3.5-5.1) 06/05/22 05:49 Chloride 105 mmol/L (98-107) 06/05/22 05:49 Carbon Dioxide 21 mmol/L (21-32) 06/05/22 05:49 Anion Gap 8 (3-11) 06/05/22 05:49 BUN 18 mg/dl (6-23) 06/05/22 05:49 Creatinine 1.01 mg/dl (0.6-1.4) 06/05/22 05:49 Est Cr Clr Drug Dosing 110.6 ml/min 06/05/22 05:49 Est GFR ( Amer) 95.9 ml/min 06/05/22 05:49 Est GFR (Non-Af Amer) 82.8 ml/min 06/05/22 05:49 BUN/Creatinine Ratio 17.8 (10-20) 06/05/22 05:49 Glucose 171 mg/dl (70-99(Fasting)) H 06/05/22 05:49 POC Glucose 204 mg/dl (70-99) H 06/05/22 16:26 Estimat Average Glucose 329 mg/dl 06/02/22 12:12 Hemoglobin A1c 13.1 % (4.5-5.6) H 06/02/22 12:12 Calcium 8.4 mg/dl (8.6-10.3) L 06/05/22 05:49 Phosphorus 3.1 mg/dl (2.5-4.9) 06/05/22 05:49 Magnesium 2.0 mg/dl (1.7-2.4) 06/05/22 05:49 Total Bilirubin 0.6 mg/dl (0.2-1.0) 06/02/22 10:10 AST 38 U/L (13-39) 06/02/22 10:10 ALT 43 U/L (7-52) 06/02/22 10:10 Alkaline Phosphatase 63 U/L (34-104) 06/02/22 10:10 Total Protein 6.9 gm/dl (6.0-8.3) 06/02/22 10:10 Albumin 4.2 gm/dl (3.4-5.0) 06/02/22 10:10 Globulin 2.7 gm/dl (2.5-4.0) 06/02/22 10:10 Albumin/Globulin Ratio 1.6 (0.9-2) 06/02/22 10:10 Triglycerides 178 mg/dl (0-150) H 06/03/22 05:39 Cholesterol 116 mg/dl (0-200) 06/03/22 05:39 LDL Cholesterol, Calc 55 mg/dl 06/03/22 05:39 VLDL Cholesterol, Calc 36 mg/dl (0-30) H 06/03/22 05:39 HDL Cholesterol 25 mg/dl 06/03/22 05:39 Cholesterol/HDL Ratio 4.6 (0-5) 06/03/22 05:39 TSH 2.548 uIu/ml (0.300-4.500) 06/02/22 10:10 Urine Color Yellow 06/02/22 12:52 Urine Appearance Clear (Clear) 06/02/22 12:52 Urine pH 5.0 (4.5-7.5) 06/02/22 12:52 Ur Specific [place] 1.023 (1.000-1.030) 06/02/22 12:52 Urine Protein Negative (Negative) 06/02/22 12:52 Urine Glucose (UA) 3+ (Negative) H 06/02/22 12:52 Urine Ketones 1+ (Negative) H 06/02/22 12:52 Urine Blood Negative (Negative) 06/02/22 12:52 Urine Nitrite Negative (Negative) 06/02/22 12:52 Urine Bilirubin Negative (Negative) 06/02/22 12:52 Urine Urobilinogen Negative (Negative) 06/02/22 12:52 Ur Leukocyte Esterase Negative (Negative) 06/02/22 12:52 SARS-CoV-2, RNA, NAAT NEGATIVE (NEGATIVE) 06/02/22 Unknown Impressions Chest X-Ray 06/02/22 09:55 XR chest 1V portable CLINICAL HISTORY: weakness TECHNIQUE: Single frontal radiograph of the chest was obtained. Comparison: Comparison is made to chest radiograph 04/11/2021 FINDINGS: Exam is limited by underpenetration. Cardiomegaly is noted. The lungs are clear. No evidence of pleural effusion or pneumothorax. IMPRESSION: No acute chest disease. Cardiomegaly is noted. ACT 112: Negative or not required by law. Electronically signed by: Syed Hagan M.D. 06/02/2022 10:32 AM Hospital Course (1) DM ketoacidosis type II, uncontrolled: (2) Acute hyperglycemia: DKA HbA1c 13.1 Recently diagnosed to have diabetes mellitus type 2 --Recently started on Ozempic --Admits to being noncompliant with diet, exercise, weight management -- Given history of autoimmune conditions in the family, will obtain insulin antibody, IA 2 antibody, zinc transporter 8 antibody, FE 65 Anion gap closed Insulin drip discontinued Tolerating diet Appreciate glycemic pharmacy and environmental educator help IV fluids discontinued Monitor blood glucose levels Continue SQ insulin per protocol Plan to discharge home today Acute kidney injury-POA Cr: 2.2>>1.41>1.01 Avoid nephrotoxic agents as able Monitor renal function Received IV fluids Hyponatremia Likely due to hyperglycemia Monitor renal function Mental status at baseline Stable (3) Chronic diastolic CHF (congestive heart failure): - Last echo from Mar 2021 showing preserved EF with diastolic dysfunction -continue Lasix, spironolactone, carvedilol Lisinopril held due to CAMILO Continue home diuretics (4) Morbid obesity with BMI of 40.0-44.9, adult: -BMI of 45.9 -Diet and exercise modification discussed with hyperglycemia as above (5) Chronic anticoagulation: (6) Factor V Leiden mutation: -H/O PE and left LE DVT Subtherapeutic INR INR 1.2 today Continue Coumadin Advised to follow-up with Coumadin clinic upon discharge DVT Px: Teds, SCDs, Coumadin CODE STATUS full code Total Time Total Time Spent Total Time Spent (In Minutes): 56 minutes Discharge Plan Discharge Items Patient Disposition: Home - Self-Care Reason For Visit: hyperglycemia Discharge Diagnosis: Diabetic ketoacidosis Acute kidney injury Uncontrolled diabetes mellitus type 2 Activity: Resume your previous activity Exercise/Sports: Gradually increase as tolerated Non-emergency contact: Primary Care Provider Call non-emergency contact if: you have any medication questions, your symptoms worsen, your pain is concerning for you and you have a fever Follow-up/Referrals: Lul Goff MD [Primary Care Provider] - (Date & Time 06/12/2022 2:00 PM Provider Lul Goff MD [facility] ) Diet: Carb Consistent or DM2 Addtl Attending Provider Instructions: Follow-up with your primary care physician on 06/12/2022 2:00 PM Follow-up with Coumadin clinic for management of your Coumadin dose and monitoring your PT/INR --Take Coumadin 12 mg today. (Can take Coumadin 10 mg tomorrow 06/06/22) --Obtain blood test (PT/INR) in 3 days and follow-up with Coumadin clinic for further adjustment of Coumadin dose as advised. Seek immediate medical attention if your symptoms reoccur or worsen Please take all medications as instructed on discharge list below. Please call if you have any questions or problems. You can reach a [facility] hospitalist on duty at [facility] 24 hours a day by calling [phone] Insulin dosing recommendations: --Take Toujeo max 80 units twice a day subcutaneously --Take NovoLog 20 units before meals and at bedtime. In addition, take NovoLog as per sliding scale based on your blood glucose levels as recommended. Insulin sliding scale: Blood Sugar 70-150, administer 0 units Blood Sugar 151-200, administer 2 units Blood Sugar 201-250, administer 4 units Blood Sugar 251-300, administer 6 units Blood Sugar 301-350, administer 8 units Blood Sugar 351-400, administer 10 units Blood Sugar >400, administer 12 units and call your Doctor Your insulin need to be readjusted based on your blood glucose levels. Discuss with your physician for further recommendations as advised. Pending Studies at Discharge: Yes Studies:: Insulin antibody, zinc transporter 8 antibody, anti-IA 2 antibody, anti-FE 65 antibody. Stand-Alone Forms: My [facility], Smoking Cessation Medications and DC Order Prescriptions: New (DME) pen needle, diabetic [Pen Needle] 32 gauge x 5/32" needle See Rx Instructions .Route Qty: 200 2RF Rx Instructions: As directed (DME) OneTouch Verio test strips Strip See Rx Instructions .Route Qty: 200 2RF Rx Instructions: As directed (DME) lancets [OneTouch Delica Lancets] 33 gauge misc See Rx Instructions .Route Qty: 2 2RF Rx Instructions: As directed insulin aspart U-100 [Novolog U-100 Insulin aspart] 100 unit/mL Solution 20 unit SC UD Qty: 20 2RF Rx Instructions: Novolog 20 units 4 times a day (before meals and at bedtime) + high dose sliding scale (up to 116 units/day) Toujeo Max U-300 SoloStar 300 unit/mL (3 mL) insulin pen 80 unit subcut BID Qty: 20 2RF Continued multivitamin Tablet 1 tab PO DAILY Qty: 0 warfarin 5 mg Tablet 10 mg PO 4XWK 90 Days Qty: 0 Rx Instructions: 2 tabs on wed, 2 , 2 , 2 sat 1 tab all other days (wed, wed, wed) rosuvastatin 10 mg tablet 10 mg PO QAM Ozempic 0.25 mg or 0.5 mg(2 mg/1.5 mL) pen injector 0.5 mg SUBCUT WK Rx Instructions: WEDNESDAY furosemide 40 mg tablet 80 mg PO 3XWK Rx Instructions: Take 2 tablets three times weekly on wednesday, wed, and sat. 1 tab all other days (///Wed) warfarin 5 mg Tablet 5 mg PO 3XWK Rx Instructions: Wednesday, Wednesday, Wednesday furosemide 40 mg tablet 40 mg PO 4XWK Rx Instructions: Take 1 tablet four times weekly on Wednesday, , Wednesday, Wednesday. Take 2 tablets three times weekly on wednesday, wed, and sat. carvedilol 25 mg tablet 25 mg PO BID buspirone 5 mg tablet 5 mg PO BID escitalopram oxalate 20 mg tablet 20 mg PO DAILY lisinopril 20 mg Tablet 20 mg PO QAM Qty: 30 0RF spironolactone 25 mg tablet 25 mg PO BID Qty: 60 0RF Discontinued celecoxib [Celebrex] 100 mg Capsule 100 mg PO BID PRN (Reason: Pain) Qty: 0 Discharge Orders: Discharge Order (Routine); Ordered 06/05/22 Ordered By: Erik Chin Admission Data Admit Date/Time: 06/02/22 12:15 Attending Provider: Erik Chin Admit Provider: Raisa Moseley Primary Care Provider: Lul Goff Other Providers: Raisa Moseley
== END 2022-06-05 18:20 | disposition home or self-care (01) | DRG 638 ==
LOC: ED 09:26 → SUATTDRO 12:15 → EDINP 12:15 → 4W 12:52

== ENCOUNTER 2023-11-30 08:43 | Observation (INO) ==
--- NOTE | 2023-11-05 12:25 | PAT Medication Instructions ---
Medication Instructions Date of Service November 05, 2023 Home Medications Medication Instructions Recorded lisinopril 20 mg tablet 20 mg PO QAM #30 tabs 04/14/21 blood sugar diagnostic (OneTouch #200 ea 06/04/22 Verio test strips) lancets 33 gauge (OneTouch Delica #2 Boxes 06/04/22 Lancets) pen needle, diabetic 32 gauge x #200 ea 06/04/22" (Pen Needle) walker #1 ea 10/25/23 warfarin 5 mg tablet 10 mg PO 5XWK buspirone 5 mg tablet 5 mg PO TID escitalopram oxalate 20 mg tablet 20 mg PO QPM lisinopril 20 mg tablet 20 mg PO QAM carvedilol 25 mg tablet 12.5 mg PO BID rosuvastatin 10 mg tablet 10 mg PO QPM semaglutide 0.25 mg or 0.5 mg (2 mg/1.5 mL) subcutaneous pen injector (Ozempic) 2 mg subcut WK warfarin 5 mg tablet 5 mg PO 2XWK empagliflozin 10 mg tablet (Jardiance) 10 mg PO QAM insulin glargine U-300 conc 300 unit/mL (3 mL) subcutaneous pen (Toujeo Max U- 300 SoloStar) 34 unit subcut QAM magnesium 200 mg tablet 400 mg PO QPM ASK your prescriber and surgeon warfarin 5 mg tablet 10 mg PO 5XWK warfarin 5 mg tablet 5 mg PO 2XWK STOP 7 days prior to surgery semaglutide 0.25 mg or 0.5 mg (2 mg/1.5 mL) subcutaneous pen injector (Ozempic) 2 mg subcut WK STOP taking 3 days before surgery empagliflozin 10 mg tablet (Jardiance) 10 mg PO QAM DO NOT take the morning of surgery lisinopril 20 mg tablet 20 mg PO QAM Take morning of surgery With a small sip of water, OTHERWISE NOTHING TO EAT OR DRINK AFTER MIDNIGHT: buspirone 5 mg tablet 5 mg PO TID carvedilol 25 mg tablet 12.5 mg PO BID Take evening before surgery buspirone 5 mg tablet 5 mg PO TID escitalopram oxalate 20 mg tablet 20 mg PO QPM carvedilol 25 mg tablet 12.5 mg PO BID rosuvastatin 10 mg tablet 10 mg PO QPM magnesium 200 mg tablet 400 mg PO QPM Insulin Dependent Diabetic Patients * Test your blood sugar the morning of surgery * If Blood Sugar is GREATER THAN 150, take HALF of your regular dose of: insulin glargine U-300 conc 300 unit/mL (3 mL) subcutaneous pen (Toujeo Max U- 300 SoloStar) * If Blood Sugar is LESS THAN 150, DO NOT TAKE ANY: insulin glargine U-300 conc 300 unit/mL (3 mL) subcutaneous pen (Toujeo Max U-300 SoloStar) Other Notes If you have any questions please call us at [phone] or [phone] or [phone] or [phone]
--- NOTE | 2023-11-12 09:21 | Anesthesiology Consultation ---
Date of Service November 12, 2023 Assessment & Plan (1) Encounter for pre-operative examination: - Check BSG AM DOS - Check coags AM DOS (Per message from lab, preop coags done at [facility] 11/12/23 hemolyzed. INR done 11/09/23 was 2.2. Surgeon's office made aware- Per Vanessa Jung with surgeon's office, surgeon recommendation to obtain coags DOS). - Infectious disease screening: Per assessment on 11/12/23: No known recent inf ectious disease contacts or current infectious disease symptoms. - Outpatient joint assessment: Pt currently scheduled for inpatient pathway. If surgeon requests review for outpatient joint pathway, patient is not recommended candidate for outpatient joint program from anesthesia standpoint based on available information. - PCP visit (10/26/23): Routine visit. No acute complaints. Continued on current recommend. F/U 6 months recommended. - Thoracic surgery televisit (11/15/23): "Mediastinal (and right hilar) lymphadenopathy.. Primary location is in the aortopulmonary window.. The adenopathy remains stable.. The tiny lung nodules are also stable.. The primary differential diagnosis for the thoracic adenopathy remains inflammation and/or infection given the lack of any significant PET/CT avidity (May 2021), The shrinkage on July 2021 CT imaging, and now the stability on subsequent surveillance covering a little more than 2.5 years now..Malignancy seems highly unlikely at this point given more than [address] imaging surveillance. I do not think he needs any additional imaging surveillance." F/U PRN recommended. - Semaglutide instructions: Patient informed by [facility] to stop 7 days prior to surgery- voiced understanding. DOS 11/30/23. Advised last dose to be 11/21/23. - Warfarin/lovenox bridging: Per [facility] clinic, will be holding warfarin 5 days preop and bridging with Lovenox 120mg BID. Advised by [facility] clinic for last dose of Lovenox preop to be 11/[address]. Tang- recommend patient not first case/made later surgery time in order for neuraxial anesthesia to be 24 hours after last lovenox dose. Surgeon's office/OR aware. Chart Review Chart Review: Acceptable Risk for Surgery and Patient seen in Pre Admission Testing Teaching & Discussion Pre-Anesthesia Teaching/Discussion Notes: Instructed NPO after midnight before surgery,except medications with 15 cc of water. Medication instructions provided according to the PAT guidelines. History Surgery Operation Date: 11/30/23 08:50 Proposed Procedures p Right Total Knee Arthroplasty - Glynn Lawrence MD Height/Weight Height: 5 ft 7.5 in Weight: 142.8 kg Allergies Allergy/AdvReac Type Severity Reaction Status Date / Time Penicillins Allergy Unknown unable to Verified 11/05/23 09:08 recall Medications Home Medications Medication Instructions Recorded Confirmed Last Taken warfarin 5 mg tablet 10 mg PO 5XWK 90 days #0 tabs 11/19/16 11/05/23 05/31/22 10 mg buspirone 5 mg tablet 5 mg PO TID 04/11/21 11/05/23 06/01/22 escitalopram oxalate 20 mg tablet 20 mg PO QPM 04/11/21 11/05/23 06/01/22 lisinopril 20 mg tablet 20 mg PO QAM #30 tabs 04/14/21 11/05/23 06/01/22 carvedilol 25 mg tablet 12.5 mg PO BID 06/02/22 11/05/23 06/01/22 rosuvastatin 10 mg tablet 10 mg PO QPM 06/02/22 11/05/23 06/01/22 semaglutide 0.25 mg or 0.5 mg (2 2 mg subcut WK 06/02/22 11/05/23 05/31/22 mg/1.5 mL) subcutaneous pen injector (Ozempic) warfarin 5 mg tablet 5 mg PO 2XWK 06/02/22 11/05/23 06/01/22 5 mg blood sugar diagnostic (OneTouch #200 ea 06/04/22 Unknown Verio test strips) lancets 33 gauge (OneTouch Delica #2 Boxes 06/04/22 Unknown Lancets) pen needle, diabetic 32 gauge x #200 ea 06/04/22 Unknown 5/32" (Pen Needle) walker #1 ea 10/25/23 Unknown empagliflozin 10 mg tablet 10 mg PO QAM 11/05/23 11/05/23 Unknown (Jardiance) insulin glargine U-300 conc 300 34 unit subcut QAM 11/05/23 11/05/23 Unknown unit/mL (3 mL) subcutaneous pen (Toujeo Max U-300 SoloStar) magnesium 200 mg tablet 400 mg PO QPM 11/05/23 11/05/23 Unknown Past Medical History Medical History Chronic kidney disease (CKD) Follows with [facility] DM II (diabetes mellitus, type II), controlled DVT (deep venous thrombosis) 2003, no issues since Taking warfarin Factor V Leiden mutation Taking warfarin History of congestive heart failure Hypertension Morbid obesity TATIANA on CPAP Compliant Osteoarthritis Right knee DJD Thoracic lymphadenopathy Monitored by [facility] thoracic surgery, stable x 2.5 years, f/u PRN per 10/2023 visit Exercise / Class Metabolic Activity III < 4 Walking/Shop/Light housework Past Family History Family History Other Factor V Leiden Heart disease Past Surgical History Surgical History History of colonoscopy History of tonsillectomy Hx of total knee arthroplasty left Past Anesthesia History No Hx of Anesthesia Complications and No Family Hx of Anesthesia Complications History of PONV No Hx of PONV and No Hx of Motion Sickness Social History Smoking Status: Never smoker tobacco type: cigars Do You Dip or Chew Tobacco: No Hx Alcohol Use: Yes alcohol intake frequency: holidays/special occasions only Hx Substance Use: No substance use type: does not use Review of Systems Patient denies chest pain, shortness of breath, fever, chills, cough, wheezing. Physical Exam Vital Signs BP 118/78 P 78 TEMP 97.9 SP02 97%RA RESP 16 Physical Full cervical extension range of motion. Full TMJ range of motion. TMD > 3.5 finger breaths Mallampati Score III Dentition: intact, upper front cap Lungs: clear throughout to auscultation Cardiac: regular rate and rhythm, no murmurs noted Spine: normal Carotid arteries: negative bruit Extremities: no LE edema Thick neck Trimmed irene Lab Results Anesthesia Preop Results Results Anesthesia Widget: WBC 6.87 K/ul (4.8-10.8) 11/12/23 Hgb 15.7 g/dl (14.0-18.0) 11/12/23 Hct 49.2 % (42.0-52.0) 11/12/23 Plt 222 K/uL (130-400) 11/12/23 Na 140 mmol/L (136-145) 11/12/23 K 4.5 mmol/L (3.5-5.1) 11/12/23 Cl 105 mmol/L (98-107) 11/12/23 CO2 27 mmol/L (21-32) 11/12/23 BUN 22 mg/dl (6-23) 11/12/23 Creat 1.21 mg/dl (0.6-1.4) 11/12/23 Glucose Level 129 mg/dl (70-99(Fasting)) H 11/12/23 PT 21.5 Seconds (9.0-12.0) H 11/12/23 PTT 37 Seconds (21-31) H 11/12/23 INR 2.1 (0.9-1.1) H 11/12/23 HA1c 6.7 % (4.5-5.6) H 11/12/23 Blood Type A Positive 11/12/23 Antibody Screen NEGATIVE 11/12/23 Testing Laboratory Results INR (11/09/23): 2.2 Electrocardiogram Date: 11/12/23 NSR at 72bpm. Rightward axis. No significant change compared to 06/02/2022 per car distributor comparison. Chest X-Ray Date: 11/12/23 FINDINGS: No lines and tubes are seen. The cardiomediastinal silhouette is normal. The lungs are clear. No evidence of pleural effusion or pneumothorax. IMPRESSION: No acute chest disease Echocardiogram Date: 04/11/21 EF 55-60%. Septal motion consistent with conduction abnormality. Mild cLVH. Intermittent septal flattening consistent with RV pressure overload. Mild RVD. Mild MR/TR. Grade II DD. Stress Test Date: 04/14/21 Type: DSE No inducible ischemia noted at peak stress. Stress ECG: No ST changes. 86% MPHR. EF 55-60%. Mild cLVH. Flattened septum is consistent with RV pressure overload. Other Testing Chest CT Date: 11/08/23 1. Stable less than 6 millimeter pulmonary nodules. No new or enlarging lung nodules. 2. Stable lobular low-attenuation structure in the left prevascular space, remains indeterminate in etiology however lymph nodes versus lymphatic malformations remain differential considerations.
--- NOTE | 2023-11-26 17:34 | History & Physical Report ---
Date of Service November 26, 2023 Assessment & Plan (1) Right knee DJD: 58-year-old male 7 years out from a left knee replacement with advanced right knee DJD. He also has a factor V Leiden abnormality with a history of thrombosis in the past. He has failed conservative measures. He would like to have his right knee replaced. Plan: We are going to take him to the operating do a right total knee replacement. The risks and benefits this procedure explained and he understands. He will need to hold his Coumadin 5 days preop. He will use a Lovenox bridge. He is planning to discharge to home using [facility] home health program. Will likely put some vancomycin in the cement due to his large size. He will need to hold his Ozempic 1 week preop. He will need a stat PT and INR the morning of surgery. (2) Morbid obesity: (3) Hypertension: (4) Chronic kidney disease (CKD): (5) DM II (diabetes mellitus, type II), controlled: (6) Factor V Leiden mutation: (7) DVT (deep venous thrombosis): History of Present Illness Chief Complaint: . Persistent right knee pain and discomfort. Primary Care Provider: Lul Goff MD . The patient is a 58-year-old gentleman long-term patient of mine who presents for surgical treatment of his right knee at this time. Got a long history of knee problems and we replaced his left knee 7 years ago. He done pretty good with this. He has been through extensive conservative treatment respect to his right knee. The last shot only helped him for 3 days or so. He is trying to stay active but have more difficulty doing this due to his knee pain. He has a limited walking tolerance. His knee aches more as the day goes on. He limps more as the day goes on. He does have a history of factor V Lei den abnormality and on Coumadin for this. Allergies Allergy/AdvReac Type Severity Reaction Status Date / Time Penicillins Allergy Unknown was told Verified 11/26/23 13:40 as a child, unsure of the reaction Home Medications Medication Instructions Recorded Confirmed Type warfarin 5 mg tablet 10 mg PO 5XWK 90 days #0 tabs 11/19/16 11/05/23 History buspirone 5 mg tablet 5 mg PO TID 04/11/21 11/05/23 History escitalopram oxalate 20 mg tablet 20 mg PO QPM 04/11/21 11/05/23 History lisinopril 20 mg tablet 20 mg PO QAM #30 tabs 04/14/21 11/05/23 Rx carvedilol 25 mg tablet 12.5 mg PO BID 06/02/22 11/05/23 History rosuvastatin 10 mg tablet 10 mg PO QPM 06/02/22 11/05/23 History semaglutide 0.25 mg or 0.5 mg (2 2 mg subcut WK 06/02/22 11/05/23 History mg/1.5 mL) subcutaneous pen injector (Ozempic) warfarin 5 mg tablet 5 mg PO 2XWK 06/02/22 11/05/23 History blood sugar diagnostic (OneTouch #200 ea 06/04/22 Rx Verio test strips) lancets 33 gauge (OneTouch Delica #2 Boxes 06/04/22 Rx Lancets) pen needle, diabetic 32 gauge x #200 ea 06/04/22 Rx 5/32" (Pen Needle) walker #1 ea 10/25/23 Rx empagliflozin 10 mg tablet 10 mg PO QAM 11/05/23 11/05/23 History (Jardiance) insulin glargine U-300 conc 300 34 unit subcut QAM 11/05/23 11/05/23 History unit/mL (3 mL) subcutaneous pen (Toujeo Max U-300 SoloStar) magnesium 200 mg tablet 400 mg PO QPM 11/05/23 11/05/23 History Past Med/Surg History Problem List Encounter for pre-operative examination Medical History Thoracic lymphadenopathy Monitored by [facility] thoracic surgery, stable x 2.5 years, f/u PRN per 10/2023 visit Morbid obesity Hypertension Right knee DJD Osteoarthritis Chronic kidney disease (CKD) Follows with Catal[facility] Farley DM II (diabetes mellitus, type II), controlled History of congestive heart failure [place] on CPAP Compliant Factor V Leiden mutation Taking warfarin DVT (deep venous thrombosis) 2003, no issues since Taking warfarin Surgical History History of colonoscopy History of tonsillectomy Hx of total knee arthroplasty left Family History Other Factor V Leiden Heart disease Social History Smoking Status: Never smoker Tobacco Type: Cigars Second Hand Exposure: No; Do You Dip or Chew Tobacco: No; Tobacco Cessation Education Requested by Patient: No Hx Alcohol Use: Yes Hx Substance Use: No Preferred Language: Italian Communication Ability: Effective Enrichment Teacher Required: No Beliefs That Will Affect Care: None marital status: Current Living Situation: Spouse How many Children do You have: 1 Other Information That Helps Us Care for You: No Feels Safe at Home: Yes Safety Concerns: Feels Safe At This Time Assistive Devices: Glasses Review of Systems All systems reviewed & are unremarkable except as noted in HPI & below. Physical Exam . Physical examination reveals a pleasant fairly large middle-age male. Examination of both knees reveal patient walks with a bit of a limp. Examination of the right knee reveals a varus alignment to his knee. Is tender over the medial joint line. Small knee effusion. Range of motion about 5-1 20. No instability. No pain with hip motion. Examination left knee reveals well- healed incision. Got anatomic alignment to the knee. No swelling. Range of motion 0-1 20. Constitutional WD/WN, vitals as above Neck trachea midline, no thyromegaly Respiratory normal respiratory effort, lungs clear to auscultation Cardiovascular RRR, no murmur, no edema Gastrointestinal (Abdomen) normal bowel sounds, soft, nontender, no hepatosplenomegaly Results & Data Results & Data Laboratory Results . Diagnostic Findings . X-rays of the right knee were reviewed. Shows advanced right knee DJD. Is got complete loss of his medial joint space. He is got subchondral sclerosis. The left knee replacement looks to be in good position without problems. PG Care Time/CCT Total # of Minutes Spent Total Time Spent with Patient: Total time spent is greater than 50% in coordination of care (as documented) at patient's floor/unit and/or counseling patient: Coding Level of Care Code None Diagnoses Right knee DJD M17.11 Morbid obesity E66.01 Hypertension I10 Chronic kidney disease (CKD) N18.9 DM II (diabetes mellitus, type II), controlled E11.9 Factor V Leiden mutation D68.51 DVT (deep venous thrombosis) I82.409
[~2023-11-30 08:43] MED LIST changes: -ACETAMINOPHEN 500 MG TAB PO SCH; +ALLERGY Noted to ORDERED Medication SCH; -BUPIVACAINE 0.25% 30 ML VIAL ONE; +BUPIVACAINE 0.25% PF 30 ML VIAL ONE; -BUPIVACAINE LIPOSOME 266 MG, BUPIVACAINE/EPINEPHRINE INJ 50 ML, SODIUM CHLORIDE 0.9% PF... INFIL SCH; -CARV3.122 PO; -CEFAZOLIN 3000MG IV PUSH 15 ML IV SCH; -CELE100C PO; -FAMOTIDINE 20 MG TAB PO SCH; -GABAPENTIN 300 MG CAP PO SCH; -LACTATED RINGER'S 1000ML 1,000 ML IV SCH; -LACTATED RINGER'S 1000ML 500 ML IV ONE; -LACTATED RINGER'S 1000ML IV SCH; -LISI-788 PO; -METOCLOPRAMIDE HCL 10 MG TAB PO SCH; -METR0.7527 TOP; +MIDAZOLAM HCL 1 MG/ML 2ML VIAL ONE; -MULT-506 PO; -SCOPOLAMINE 1.5 MG TDSY TD SCH; -TRANEXAMIC ACID INJ 1,000 MG in SYRINGE 0 ML IV SCH; -WARF-246 PO
[2023-11-30] MEDS ORDERED: fentaNYL citrate PF 100 MCG/2 ML VIAL IV PRN (09:00)
[2023-11-30] MEDS ORDERED: ATROPINE SULFATE 0.1 MG/ML 10ML SYR IV PRN (09:00)
[2023-11-30] MEDS ORDERED: ePHEDrine sulfate 50 MG/ML AMP IV PRN (09:00)
[2023-11-30] MEDS ORDERED: ONDANSETRON INJ 2 MG/ML 2 ML VIAL IV PRN ×2 (09:00→13:23)
[2023-11-30] MEDS: ACETAMINOPHEN 500 MG TAB PO SCH ×2 (09:32→14:11)
[2023-11-30] MEDS: CeleBREX 200 MG CAP PO SCH (09:32)
[2023-11-30] MEDS: FAMOTIDINE 20 MG TAB PO SCH (09:33)
[2023-11-30] MEDS: LR 60ML/HR IV SCH (09:33)
[2023-11-30] MEDS: LR 500ML BOLUS, THEN 15ML/HR IV SCH (09:33)
[2023-11-30] MEDS: METOCLOPRAMIDE HCL 10 MG TABLET PO SCH (09:33)
[2023-11-30 09:57] LABS: Partial Thromboplastin Time 28 Seconds (21-31); Prothrombin Time 10.9 Seconds (9.0-12.0)
[2023-11-30] MEDS ORDERED: fentaNYL citrate PF 100 MCG/2 ML VIAL ONE (10:20)
--- NOTE | 2023-11-30 10:28 | History & Physical Bridge Note ---
Date of Service November 30, 2023 History & Physical Bridge Note I have examined the patient, reviewed the History & Physical and in the interval since the performance of the History & Physical I have noted the following changes of clinical significance: no changes noted
[2023-11-30] MEDS: ceFAZolin 3000MG 3,000 MG/72.5 ML BAG IV SCH (10:52)
[2023-11-30] MEDS ORDERED: MIDAZOLAM HCL 1 MG/ML 2ML VIAL ONE (11:12)
[2023-11-30] MEDS ORDERED: PHENYLEPHRINE HCL 10 MG/ML VIAL ONE (11:28)
[2023-11-30] MEDS ORDERED: PROPOFOL IV EMULSION 10 MG/ML 20 ML VIAL IV ONE (11:28)
[2023-11-30] MEDS: TRANEXAMIC ACID 1,000 MG **IV Intra-op IV SCH (11:46)
--- OUTSIDE RECORDS SUMMARY | 2023-11-30 11:50 | External Medical Summary | Summary of Care ---
Author Name Unknown Organization [facility] Address [address] [place] [address] Phone [phone] Care Team Providers Care Atmospheric Physicist Name Role Phone Lul Goff MD Primary Care Provider [phone] Reason for Visit * Reason Comments Follow Up Encounter Details Date Type Department Care Team (Late st Contact Info) Description 11/15/2023 2:15 PM EDT Office Visit Thoracic Surg [facility] [address], [place] [id number] Josué Charles MD [address], [place] [id number] Mediastinal lymphadenopathy*; Hilar lymphadenopathy; Nodule of lower lobe of right lung Allergies Active Allergy Reactions Criticality Noted Date Comments Penicillins 04/17/1998 documented as of this encounter (statuses as of 11/15/2023) Medications Medication Sig Dispensed Refills Start Date End Date Status Magnesium 400 MG Oral Capsule Take 1 Capsule by mouth in the morning. Active OneTouch Delica Plus [id number] 4 times a day. As directed. 06/04/2022 Active OneTouch Verio In Vitro Strip Use to check blood sugars 4 times per day as directed 400 Strip 3 07/15/2022 Active BD Pen Needle Mini U/F 31G X 5 MM (Insulin Pen Needle)Indications :Type 2 diabetes mellitus with hemoglobin A1c goal of less than 7.0% (HCC) Use to inject insulin subcutaneously 4 times per day as directed DX E11.9 400 Each 3 10/13/2022 Active Reva Max SoloStar 300 UNIT/ML Subcutaneous Solution Pen-injectorIndica tions:Type 2 diabetes mellitus with hemoglobin A1c goal of less than 7.0% (HCC) Inject 42 Units under the skin every morning. Dose decrease 45 mL 3 10/13/2022 Active Jardiance 10 MG Oral Tablet (Empagliflozin)Ind ications:Type 2 diabetes mellitus with hemoglobin A1c goal of less than 7.0% (HCC) TAKE 1 TABLET IN THE MORNING 90 Tablet 3 12/14/2022 Active Escitalopram Oxalate 20 MG Oral Tablet (Lexapro)Indicatio ns:Anxiety TAKE 1 TABLET DAILY 90 Tablet 3 01/03/2023 Active Rosuvastatin Calcium 10 MG Oral Tablet (Crestor)Indicatio ns:Dyslipidemia, goal LDL below 100 TAKE 1 TABLET EVERY EVENING 90 Tablet 3 02/10/2023 Active metroNIDAZOLE 1 % External Gel (Metrogel) APPLY TO FACE AT NIGHT 60 g 5 05/17/2023 Active FreeStyle Jesús 3 SensorIndications: Type 2 diabetes mellitus with hemoglobin A1c goal of less than 7.0% (HCC) USE DIRECTED, CHANGE EVERY 14 DAYS (USE PHONE FOR THE SALES REPRESENTATIVE GAS SERVICE) 6 Each 3 07/07/2023 Active Warfarin Sodium 5 MG Oral Tablet (Coumadin) Take up to 2 tablets daily as directed by anticoagulation clinic. 180 Tablet 3 07/08/2023 Active Ozempic (2 MG/DOSE) 8 MG/3ML Subcutaneous Solution Pen-injector (Semaglutide (2 MG/DOSE))Indicatio ns:Type 2 diabetes mellitus with hemoglobin A1c goal of less than 7.0% (HCC) INJECT 2 MG UNDER THE SKIN WEEKLY 9 mL 2 08/12/2023 Active busPIRone HCl 5 MG Oral Tablet (Buspar)Indication s:Anxiety TAKE 2 TABLETS THREE TIMES A DAY 540 Tablet 3 09/20/2023 Active Carvedilol 6.25 MG Oral Tablet (Coreg)Indications :HTN, goal below 140/90 Take 2 Tablets by mouth in the morning and 2 Tablets before bedtime. with food. 10/15/2023 Active Fluorouracil 5 % External Cream (Efudex)Indication s:Actinic keratosis Start in fall/winter: Apply 2x daily for 3 weeks to spot on right spiritism (and a 1cm border surrounding). Then send photos through the My Chart at the end of the treatment please. 40 g 10/19/2023 Active Lisinopril 20 MG Oral Tablet (Prinivil) Take 1 Tablet by mouth in the morning. 90 Tablet 3 10/21/2023 Active Enoxaparin Sodium 120 MG/0.8ML Injection Solution Prefilled Syringe (Lovenox)Indicatio ns:Factor V Leiden mutation (HCC),Anticoagulat ion management encounter Inject 120 mg under the skin in the morning and 120 mg before bedtime. As directed by anticoagulation clinic for lovenox bridge.. 8 mL 11/09/2023 Active documented as of this encounter (statuses as of 11/15/2023) Active Problems Problem Noted Date Diagnosed Date Chronic kidney disease, stage 3a 08/23/2023 Overview: Per CKD protocol Type 2 diabetes mellitus wit h stage 3a chronic kidney disease 07/26/2023 Overview: Per CKD protocol Hx of actinic keratosis 09/10/2022 Type 2 diabetes mellitus wit h hemoglobin A1c goal of less than 7.0% 02/18/2022 Chronic heart failure with preserved ejection fr action 02/03/2022 Dyslipidemia, goal LDL below 100 02/03/2022 Body mass index (BMI) of 45.0 to 49.9 in adult 0 04/28/2021 Overview: Per Obesity protocol - Per Obesity protocol - Per Obesity protocol - Per Obesity protocol Mediastinal lymphadenopathy 04/11/2021 Hilar lymphadenopathy 04/11/2021 Nodule of lower lobe of right lung 04/11/2021 Hypnagogic jerks 04/19/2020 Psychophysiological insomnia 04/19/2020 Anxiety 04/19/2020 TATIANA on CPAP 02/22/2020 H/O dysplastic nevus 08/22/2019 Overview: Mildly dysplastic nevus (R lateral lower flank) History of pulmonary embolism 07/28/2018 Hx of nonmelanoma skin cancer 05/17/2018 Overview: Atypical squamous proliferation (R forearm 2009), 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 09/06), basal cell carcinoma (R anterior thigh 11/08) Factor V Leiden mutation 09/11/2014 HTN, goal below 140/90 08/27/2010 Congenital deficiency of other clotting factors 01/25/2003 [facility] current use of anticoagulant therapy 1 03/28/2002 Overview: ICD-10 update of inactive term documented as of this encounter (statuses as of 11/15/2023) Resolved Problems Problem Noted Date Diagnosed Date Resolved Date Diabetes mellitus with stage 3 chronic kidney disease 06/28/2023 07/29/2023 Overview: Per CKD protocol Chronic kidney disease, stage 3a 04/26/2023 06/30/2023 Overview: Per CKD protocol Body mass index (BMI) of 40. 0 to 44.9 in adult 04/22/2020 04/30/2021 Overview: Per Obesity protocol - Per Obesity protocol - Per Obesity protocol Anhedonia 04/19/2020 09/14/2022 Body mass index (BMI) of 45. 0 to 49.9 in adult 01/29/2020 04/25/2020 Overview: Per Obesity protocol - Per Obesity protocol Body mass index (BMI) of 40. 0 to 44.9 in adult 12/25/2019 02/01/2020 Overview: Per Obesity protocol Actinic keratosis 08/24/2019 09/10/2022 Obesity, morbid (more than 1 00 lbs over ideal weight or BMI > 40) 07/29/2011 07/28/2018 Obesity, Class II, BMI 35-39 .9, isolated (see actual BMI) 07/29/2009 07/29/2011 Overview: Per Obesity Protocol, #19 Malaise and fatigue 2007 07/29/19 12 Periumbilical abdominal pain 2007 07/29/2011 Overview: ICD-10 update of inactive term Acute prostatitis 2007 07/29/2011 HX OF PULMONARY EMBOLISM AND INFARCTION 2007 07/28/2018 DEEP PHLEBITIS-LEG NEC 03/06/200307/28 OTHER PULMONARY EMBOLISM AND INFARCTION 03/06/2003 2007 Anticoagulation management encounter 01/25/2003 01/26/2017 Viral warts 02/24/1999 07/29/2011 Overview: ICD-10 update of inactive term TESTICULAR HYPOFUNC NEC 02/24/199907/16 documented as of this encounter (statuses as of 11/15/2023) Immunizations Name Administration Dates Next Due COVID-19, LNP-s, No Preserve , Barry-sucrose, Ages 12+ (Un[employer] Concepts) 07/28/2021 COVID-19, MRNA-LNP, 23-24, P F, 30 MCG/0.3 mL, 12 YRS AND ABOVE, IM (Alaris RoyaltyirVizy) 11/15/2022 COVID-19, MRNA-LNP, 24-25, P R, 30MCG/0.3ML, IM, 12YRS AND ABOVE ([employer]Sho[employer]com) 10/28/2023 Covid-19 Ad26, Single Dose (Manju/J&J) 12/12/2020,04/27/2020 Covid-19, Mrna, Lnp-s, Pf, B ivalent, 30 Mcg, IM, 12 yrs and above ([employer]) 02/12/2022 H1N1 2009 Influenza, IM 01/20/2009 Pneumococcal Conjugate Vacci ne, 20-valent ([id number]) 12/03/2021 Seasonal Influenza Virus Vac cine, Unspecified Formulation 11/24/2021 Seasonal Influenza, PF, 6 M & above, IM , (FluLaval or Fluzone) 11/05/2022,11/07/2020,11/01/2019,11/08 Seasonal Influenza, Quadriva lent, No Preserve, IM 11/16/2017,12/20/2016,01/15/2016 Seasonal Influenza, Trivalen t, (IIV3), PF, (Fluzone) 10/28/2023 Seasonal Influenza, Trivalen t, (IIV3), with Preserv, (Fluzone) 11/13/2014,11/17/2013,12/01/2012,12/10,12/22/2010,03/26/2010,12/07/2008 ,01/02/2008,12/22/2006,01/06/2006 TDAP (age 10 and older)(Boostrix) 10/14/2020 TDAP, Age 7 and older, IM (Adacel) 08/27/2010 08/27/2020 Zoster Vaccine Recombinant (Shingrix) 02/06/2019,07/28/2018 documented as of this encounter Social History Tobacco Use Types Packs/Day Years Used Date Smoking Tobacco: Never Passive Smoke Exposure: Past Smokeless Tobacco: Never Alcohol Use Standard Drinks/Week Comments Yes 0 (1 standard drink = 0.6 oz pur e alcohol) Socially PHQ-2 Answer Date Recorded PHQ Adult Total Score 0 10/26/2023 Hunger Vital Sign Answer Date Recorded Within the past 12 months, y ou worried that your food would run out before you got the money to buy more. Never true 12/04/19 22 Within the past 12 months, t he food you bought just didn't last and you didn't have money to get more. Never true 12/03/2021 Utilities Answer Date Recorded Do you have trouble paying y our heating, water, or electric bill? (Adult - for ages 18 years and over) Not on file 08/03/2023 Is your family able to pay t he heat, water, or electric bill? (Household - for ages 0-17 years) Not on file 08/03/2023 Does your family have access to good internet? (Household - for ages 0-17 years) Not on file 08/03/2023 Social Connections Answer Date Recorded How often do you feel lonely or isolated from those around you? (Adult - for ages 18 years and over) Not on file 08/03/2023 Sex and Gender Information Value Date Recorded Sex Assigned at Male 10/13/2022 10:04 AM EDT Gender Identity Male 10/13/2022 10:04 AM EDT Sexual Orientation Straight 04/11/2021 10 :55 AM EST Job Start Date Occupation Industry Not on file Not on file Not on file documented as of this encounter Progress Notes * Josué Charles MD - 11/15/2023 12:21 PM EDT THORACIC SURGERY CLINIC @ [facility] 11/15/2023 Last visit = 11/02/2022 After connecting to the patient via telephone, the patient was identified by name and date of . Patient was then informed that this was a telephone call only visit. The patient agreed to participate. Visit Disposition: Routine follow-up (see Plan at the bottom of this note). Total call duration was 5 minutes. Since last visit: 1. No major new symptoms or medical problems. 2. Returns for re-evaluation of thoracic lymphadenopathy and a lung nodule. Review of my original HPI 05/12/2021: Narinder was admitted to [facility] last month from 04/11 - 04/14/2021. 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 The primary finding is adenopathy in the left aortopulmonary and/or para-aortic region,plus some mild right hilar adenopathy. There is a tiny 4 mm RLL incidental lung nodule. Since hospital discharge he has been feeling better. He met with Dr. Jung, his production miner, last week for ongoing management of the heart failure (made some medication changes; sees him again in 1 month). A recent cardiac stress test was negative for inducible ischemia (04/14/2021). He is back to work, and in fact we connected via telemedicine today with him in what I believe is his office. He looks in good spirits, without distress, and was fully participatory in our conversation. Allergies: Review of patient's allergies indicates: Allergen Reactions Penicillins Current Outpatient Medications Medication Sig Dispense Refill Magnesium 400 MG Oral Capsule Take 1 Capsule by mouth in the morning. OneTouch Delica Plus [id number] 4 times a day. As directed. OneTouch Verio In Vitro Strip Use to check blood sugars 4 times per day as directed 400 Strip 3 BD Pen Needle Mini U/F 31G X 5 MM (Insulin Pen Needle) Use to inject insulin subcutaneously 4 timesper day as directed DX E11.9 400 Each 3 Toujeo Max SoloStar 300 UNIT/ML Subcutaneous Solution Pen-injector Inject 42 Units under the skin every morning. Dose decrease 45 mL 3 Jardiance 10 MG Oral Tablet (Empagliflozin) TAKE 1 TABLET IN THE MORNING 90 Tablet 3 Escitalopram Oxalate 20 MG Oral Tablet (Lexapro) TAKE 1 TABLET DAILY 90 Tablet 3 Rosuvastatin Calcium 10 MG Oral Tablet (Crestor) TAKE 1 TABLET EVERY EVENING 90 Tablet 3 metroNIDAZOLE 1 % External Gel (Metrogel) APPLY TO FACE AT NIGHT 60 g 5 FreeStyle Jesús 3 Sensor USE DIRECTED, CHANGE EVERY 14 DAYS (USE PHONE FOR THE SALES REPRESENTATIVE GAS SERVICE) 6 Each 3 Warfarin Sodium 5 MG Oral Tablet (Coumadin) Take up to 2 tablets daily as directed by anticoagulation clinic. 180 Tablet 3 Ozempic (2 MG/DOSE) 8 MG/3ML Subcutaneous Solution Pen-injector (Semaglutide (2 MG/DOSE)) INJECT 2 MG UNDER THE SKIN WEEKLY 9 mL 2 busPIRone HCl 5 MG Oral Tablet (Buspar) TAKE 2 TABLETS THREE TIMES A DAY 540 Tablet 3 Carvedilol 6.25 MG Oral Tablet (Coreg) Take 2 Tablets by mouth in the morning and 2 Tablets before bedtime. with food. Fluorouracil 5 % External Cream (Efudex) Start in fall/winter: Apply 2x daily for 3 weeks to spot on right spiritism (and a 1cm border surrounding). Then send photos through the My Chart at the end of the treatment please. 40 g 0 Lisinopril 20 MG Oral Tablet (Prinivil) Take 1 Tablet by mouth in the morning. 90 Tablet 3 Fluzone 0.5 ML Intramuscular Suspension Prefilled Syringe (influenza virus vaccine, trivalent) Inject into a large muscle. 0.5 mL 0 Comirnaty 30 MCG/0.3ML Intramuscular Suspension Prefilled Syringe (COVID-19 mRNA Vaccine 12 years and above [employer]s) Inject into a large muscle. 0.3 mL 0 Enoxaparin Sodium 120 MG/0.8ML Injection Solution Prefilled Syringe (Lovenox) Inject 120 mg under the skin in the morning and 120 mg before bedtime. As directed by anticoagulation clinic for lovenox bridge.. 8 mL 0 No current facility-administered medications for this visit. 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 current use of anticoagulant therapy HTN, goal below 140/90 Factor V Leiden mutation (HCC) Hx of nonmelanoma skin cancer History of pulmonary embolism H/O dysplastic nevus TATIANA on CPAP Hypnagogic jerks Psychophysiological insomnia Anxiety Body mass index (BMI) of 45.0 to 49.9 in adult (HCC) Mediastinal lymphadenopathy Hilar lymphadenopathy Nodule of lower lobe of right lung Chronic heart failure with preserved ejection fraction (HCC) Dyslipidemia, goal LDL below 100 Type 2 diabetes mellitus with hemoglobin A1c goal of less than 7.0% (HCC) Hx of actinic keratosis Type 2 diabetes mellitus with stage 3a chronic kidney disease (HCC) Chronic kidney disease, stage 3a (HCC) Past Medical History: Diagnosis Date INFORMATION 10/2001 Factor V Leidan Deficiency TATIANA on CPAP 02/22/2020 Phlebitis and thrombophlebitis of other deep vessels of lower extremities 09/2001 left femoral Past Surgical History: Procedure Laterality Date COLONOSCOPY, DIAGNOSTIC (RECTUM) 08/31/2016 adenomatous, hyperplastic and serrated adenomatous polyp, diverticulosis, repeat 3 yrs/COLONOSCOPY FLEXIBLE PROXIMAL DIAGNOSTIC performed by Baltazar Fuentes MD at END[facility]COPY [facility] COLONOSCOPY, DIAGNOSTIC (RECTUM) 12/01/2019 benign polyp, repeat 5 yrs / COLONOSCOPY FLEXIBLE PROXIMAL DIAGNOSTIC performed by Dominick Silverio MD at ENDOSCOPY [facility] KNEE ARTHROSCOPY, DIAGNOSTIC Knee Arthroscopy - bilateral REMOVAL OF TONSILS, UNDER AGE 12 Tonsils Removal,<12 Y/O REPAIR INITIAL INGUINAL HERNIA REDUCIBLE AGE 5 OR MORE Inguinal Hernia Repair,5+Y/O,Reducibl Social History Socioeconomic History Marital status: Spouse name: Gloria Number of children: 1 Years of education: Not on file Highest education level: Not on file Occupational History 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: [employer] 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 Employer: [employer] Tobacco Use Smoking status: Never Passive exposure: Past Smokeless tobacco: Never Vaping Use Vaping status: Never Used Substance and Sexual Activity Alcohol use: Yes Comment: Socially Drug use: No Sexual activity: Yes Other Topics Concern Not on file Social History Narrative Not on file Social Determinants of Health Financial Resource Strain: Not on file Food Insecurity: No Food Insecurity (12/03/2021) Hunger Vital Sign Worried About Running Out of Food in the Last Year: Never true Ran Out of Food in the Last Year: Never true Transportation Needs: Not on file Social Connections: Unknown (08/03/2023) Social Connections How often do you feel lonely or isolated from those around you? (Adult - for ages 18 years and over): Not on file Housing Stability: Not on file Family History Problem Relation Name Age of Onset Blood Disorder Father Factor V Leiden Def Heart Disorder Mother Heart Disorder Father Gastro-intestinal disorder Brother Crohn's Cancer Father Prostate REVIEW OF SYSTEMS: Any pertinent positives are noted in the HPI; all others are negative. PHYSICAL EXAM: Exam deferred -- telephonic and/or telemedicine encounter. IMAGING: I personally reviewed the images and reports of the following studies: 11/08/2023 CT Chest: -- stable lung nodules (<6 mm) -- stable adenopathy -- stable mediastinal findings 10/26/2022 CT Chest: -- stable tiny lung nodules (<6 mm) -- stable right hilar lymph node -- stable mediastinal adenopathy 01/12/2022 CT Chest: -- stable mediastinal and hilar lymph nodes -- stable tiny lung nodules 08/04/2021 CT Chest: -- decreased (improved) adenopathy -- smaller right hilar lymph node -- smaller left pre-vascular mediastinal nodes -- stable sub-centimeter lung nodules 05/21/2021 PETCT: -- mildly avid right hilar lymph node (SUV 4.17) -- non-avid mediastinal nodes in left pre-vascular space -- overall, findings suggest inflammation/infection -- low level neoplastic process cannot be ruled out 04/11/2021 CT Chest ([facility]): -- enlarged left pre-vascular lymphadenopathy (conglomerate) -- measures up to 6 cm in diameter) -- mild right hilar adenopathy (largest is 18 mm) -- 12 mm indeterminate hypodensity in splenic dome -- 4 mm RLL lung nodule 04/11/2021 CXR ([facility]): -- prominent left mediastinal contour -- cardiomegaly PATHOLOGY: None relevant. PHYSIOLOGY: 04/14/2021 Dobutamine stress ECHO ([facility]): -- no inducible ischemia -- normal LV systolic function -- flattened LV septum -- RV dilation consistent with RV pressure overload 04/13/2021 EKG ([facility]): -- sinus bradycardia with rightward axis ASSESSMENT: 1. Mediastinal (and right hilar) lymphadenopathy. -- primary location is the aortopulmonary window -- the adenopathy remains stable -- the tiny lung nodules are also stable 2. The primary differential diagnosis for the thoracic adenopathy remains inflammation and/or infection given the lack of any significant PET/CT avidity (May 2021), the shrinkage on July 2021 CT imaging, and now the stability on subsequent surveillance covering a little more than 2.5 years now. 3. Updated image findings, differential diagnoses, and management options reviewed again with Narinder.Malignancy seems highly unlikely at this point given more than [address] imaging surveillance. I do not think he needs any additional imaging surveillance. He is agreeable. PLAN: 1. No further CT imaging. 2. No further follow-up us, but encouraged him to call with any questions. 3. All questions answered to apparent satisfaction. Josué Charles MD FACS System Chief, Thoracic Surgery [facility] [place] [place] [address] documented in this encounter Plan of Treatment Upcoming Encounters Date Type Department Care Team (Late st Contact Info) Description 12/16/2023 7:30 AM EDT Anticoagulation Pharmacy, [place] [address] [place] [address] [facility] [address] [place] [address] 02/02/2024 4:40 PM EST Office Visit Nephrology, [place] [address] [place] [address] Zander Bell MD [address] [facility] [place] [address] 05/01/2024 3:40 PM EDT Office Visit Family [facility] [address] [place] [id number] Lul Goff MD [address] [place] [address] Scheduled Procedures Name Priority Associated Diagnoses Date/Ti me COLONOSCOPY FLEXIBLE PROXIMAL DIAGNOSTIC Recall History of colon polyps Health Maintenance Due Date Last Done Comments Hepatitis B Vaccine (1 of 3 - 19+ 3-dose series) 1985 Cologuard 2011 Fecal Occult Blood Test 2011 Sigmoidoscopy 2011 Diabetic Eye Exam 02/05/2024 02/04/2023, , 02/04/2023, Additional history exists CKD HGB USE SMARTSET 09850 04/02/202404/02, 05/07/2021, 05/07/2021, Additional history exists GFR 04/24/2024 10/26/2023, 08/15, 07/30/2023, Additional history exists HbA1c 04/24/2024 10/26/2023, 08/2023, 04/02/2023, Additional history exists CKD PHOS USE SMARTSET 79242 06/21/2024 06/22/2023 Diabetic Foot Exam 06/21/2024 06/22/2023 Albumin/Creatinine Ratio 07/22/2024 024, 06/22/2023, 06/08/2022 Depression Screening 10/25/2024 10/26/2023 Colonoscopy 11/30/2024 12/01/2019, 11/15, 08/31/2016, Additional history exists Colorectal Cancer Screening 11/30/2024 Lipid Panel 04/02/2028 04/02/2023, 05/17, 12/03/2021, Additional history exists DTap/Tdap Vaccines (3 - Td or Tdap) 10/14/2030 10/14/2020, 08/27/2010, 10/08/2003, Additional history exists Zoster Vaccines Completed 02/06/2019, 07/28/2018 RETIRED - COLONOSCOPY-EVERY 5 YRS AGES 18-100 Discontinued 12/01/2019, 12/01/2019, 08/31/2016, Additional history exists Pneumococcal Vaccine: Pediatrics (0 to 5 Years) and At-Risk Patients (6 to 64 Years) Completed 12/03/2021 COVID-19 Vaccine Completed 10/28/2023, 02/2022, 11/15/2022, Additional history exists Influenza Vaccine (FLU shot) Completed 10/28/2023, 11/05/2022, 11/05/2022, Additional history exists HPV (Gardasil) Vaccine Aged Out No lo nger eligible based on patient's age to complete this topic MENINGOCOCCAL (MENACTRA/MENVEO) Aged Out No longer eligible based on patient's age to complete this topic documented as of this encounter Medical Devices Not on filedocumented as of this encounter Visit Diagnoses Diagnosis Mediastinal lymphadenopathy- Primary Enlargement of lymph nodes Hilar lymphadenopathy Enlargement of lymph nodes Nodule of lower lobe of right lung documented in this encounter Care Teams Atmospheric Physicist Relationship Specialty Start Date End Date Lul Goff MD [address] [place] [address] PCP - General 10/09/03 documented as of this encounter
--- OUTSIDE RECORDS SUMMARY | 2023-11-30 11:50 | External Medical Summary | Summary of Care ---
Author Name Unknown Organization [facility] Address [address] [place] [address] Phone [phone] Care Team Providers Care Food Dehydrator Operator Name Role Phone Husam Jackson MD Primary Care Provider [phone]- [phone] Reason for Visit * Reason Comments eRx-Medication Refill Encounter Details Date Type Department Care Team (Late st Contact Info) Description 11/21/2023 Refill Pharmacy, [place] [address] [place] [address] Husam Jackson MD [address], [place] [id number] Type 2 diabetes mellitus with hemoglobin A1c goal of less than 7.0% (HCC) Allergies Active Allergy Reactions Criticality Noted Date Comments Penicillins 04/17/1998 documented as of this encounter (statuses as of 11/22/2023) Medications Medication Sig Dispensed Refills Start Date End Date Status Magnesium 400 MG Oral Capsule Take 1 Capsule by mouth in the morning. Active OneTouch Delica Plus [id number] 4 times a day. As directed. 3 Active OneTouch Verio In Vitro Strip Use to check blood sugars 4 times per day as directed 400 Strip 3 3 Active BD Pen Needle Mini U/F 31G X 5 MM (Insulin Pen Needle)Indicatio ns:Type 2 diabetes mellitus with hemoglobin A1c goal of less than 7.0% (HCC) Use to inject insulin subcutaneously 4 times per day as directed DX E11.9 400 Each 3 3 Active Touamrito Max SoloStar 300 UNIT/ML Subcutaneous Solution Pen-injectorIndi cations:Type 2 diabetes mellitus with hemoglobin A1c goal of less than 7.0% (HCC) Inject 42 Units under the skin every morning. Dose decrease 45 mL 3 3 Active Escitalopram Oxalate 20 MG Oral Tablet (Lexapro)Indicat ions:Anxiety TAKE 1 TABLET DAILY 90 Tablet 3 3 Active Rosuvastatin Calcium 10 MG Oral Tablet (Crestor)Indicat ions:Dyslipidemi a, goal LDL below 100 TAKE 1 TABLET EVERY EVENING 90 Tablet 3 3 Active metroNIDAZOLE 1 % External Gel (Metrogel) APPLY TO FACE AT NIGHT 60 g 5 4 Active FreeStyle Jesús 3 SensorIndication s:Type 2 diabetes mellitus with hemoglobin A1c goal of less than 7.0% (HCC) USE DIRECTED, CHANGE EVERY 14 DAYS (USE PHONE FOR THE OWNER) 6 Each 3 4 Active Warfarin Sodium 5 MG Oral Tablet (Coumadin) Take up to 2 tablets daily as directed by anticoagulation clinic. 180 Tablet 3 4 Active Ozempic (2 MG/DOSE) 8 MG/3ML Subcutaneous Solution Pen-injector (Semaglutide (2 MG/DOSE))Indicat ions:Type 2 diabetes mellitus with hemoglobin A1c goal of less than 7.0% (HCC) INJECT 2 MG UNDER THE SKIN WEEKLY 9 mL 2 4 Active busPIRone HCl 5 MG Oral Tablet (Buspar)Indicati ons:Anxiety TAKE 2 TABLETS THREE TIMES A DAY 540 Tablet 3 4 Active Carvedilol 6.25 MG Oral Tablet (Coreg)Indicatio ns:HTN, goal below 140/90 Take 2 Tablets by mouth in the morning and 2 Tablets before bedtime. with food. 4 Active Fluorouracil 5 % External Cream (Efudex)Indicati ons:Actinic keratosis Start in fall/winter: Apply 2x daily for 3 weeks to spot on right church (and a 1cm border surrounding). Then send photos through the My Chart at the end of the treatment please. 40 g 4 Active Lisinopril 20 MG Oral Tablet (Prinivil) Take 1 Tablet by mouth in the morning. 90 Tablet 3 4 Active Enoxaparin Sodium 120 MG/0.8ML Injection Solution Prefilled Syringe (Lovenox)Indicat ions:Factor V Leiden mutation (HCC),Anticoagul ation management encounter Inject 120 mg under the skin in the morning and 120 mg before bedtime. As directed by anticoagulation clinic for lovenox bridge.. 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 1 03/28/2002 Overview: ICD-10 update of inactive term documented as of this encounter (statuses as of 11/22/2023) Resolved Problems Problem Noted Date Diagnosed Date [...] as of this encounter (statuses as of 11/22/2023) Immunizations Name Administration Dates Next Due COVID-19, LNP-s, No Preserve , Barry-sucrose, Ages 12+ (Siminars) 07/28/2021 COVID-19, MRNA-LNP, 23-24, P F, 30 MCG/0.3 mL, 12 YRS AND ABOVE, IM ([email or web address]) 11/15/2022 COVID-19, MRNA-LNP, 24-25, P R, 30MCG/0.3ML, IM, 12YRS AND ABOVE ([email or web address]) 10/28/2023 Covid-19 Ad26, Single Dose ([employer]/J&J) 12/12/2020,04/27/2020 Covid-19, Mrna, Lnp-s, Pf, B ivalent, 30 Mcg, IM, 12 yrs and above (Siminars) 02/12/2022 H1N1 2009 Influenza, IM 01/20/2009 Pneumococcal Conjugate Vacci ne, 20-valent ([id number]) 12/03/2021 Seasonal Influenza Vac., MDV , IM, 0.5 mL (Fluzone) 11/13/2014,11/17/2013,12/01/2012,12/10,12/22/2010,03/26/2010,12/07/2008 ,01/02/2008,12/22/2006,01/06/2006 Seasonal Influenza Virus Vac cine, Unspecified Formulation 11/24/2021 Seasonal Influenza, PF, 6 M & above, IM , (FluLaval or Fluzone) 11/05/2022,11/07/2020,11/01/2019,11/08 Seasonal Influenza, Quadriva lent, No Preserve, IM 11/16/2017,12/20/2016,01/15/2016 Seasonal Influenza, Trivalen t, (IIV3), PF, (Fluzone) 10/28/2023 TDAP (age 10 and older)(Boostrix) 10/14/2020 TDAP, [...] on file documented as of this encounter Miscellaneous Notes * Telephone Encounter - [facility] - 11/22/2023 7:16 AM EDT Signed Prescriptions: Disp Refills Jardiance 10 MG Oral Tablet (Empagliflozin)90 Tab*3 Sig: TAKE 1 TABLET IN THE MORNINGAuthorizing Provider: HUSAM JACKSON User: ELI FAITH documented in this encounter Plan of Treatment Upcoming Encounters Date Type Department Care Team (Late st Contact Info) Description 12/16/2023 7:30 AM EDT Anticoagulation Pharmacy, [place] [address] [place] [address] [facility] [address] [place] [address] 02/02/2024 4:40 PM EST [facility] [address] [place] [address] Zander Bell MD [address] [facility] [place] [address] 05/01/2024 3:40 PM EDT Office Visit Family Practice, [place] [address] [place] [phone] Husam Jackson MD [address] [place] [address] Scheduled Procedures Name Priority Associated Diagnoses Date/Ti me COLONOSCOPY FLEXIBLE PROXIMAL DIAGNOSTIC Recall History of colon polyps Health Maintenance Due Date Last Done Comments Hepatitis B Vaccine (1 of 3 - 19+ 3-dose series) 1985 Cologuard 2011 Fecal Occult Blood Test 2011 Sigmoidoscopy 2011 Diabetic Eye Exam 02/05/2024 02/04/2023, , 02/04/2023, Additional history exists CKD HGB USE SMARTSET 31674 04/02/202404/02, 05/07/2021, 05/07/2021, Additional history exists GFR 04/24/2024 10/26/2023, 08/15, 07/30/2023, Additional history exists HbA1c 04/24/2024 10/26/2023, 05/0 08/2023, 04/02/2023, Additional history exists CKD PHOS USE SMARTSET 41915 06/21/2024 06/22/2023 Diabetic Foot Exam 06/21/2024 06/22/2023 [...] as of this encounter Visit Diagnoses Diagnosis Type 2 diabetes mellitus with hemoglobin A1c goal of less than 7.0% (HCC) documented in this encounter Care Teams Food Dehydrator Operator Relationship Specialty Start Date End Date Husam Jackson MD [address] [place] [address] PCP - General 10/09/03 documented as of this encounter
--- OUTSIDE RECORDS SUMMARY | 2023-11-30 11:51 | External Medical Summary | Summary of Care ---
Author Name Unknown Organization [facility] Address [address] [place] [address] Phone [phone] Care Team Providers Care Ethics Manager Name Role Phone Lul Goff MD Primary Care Provider [phone]- [phone] Reason for Visit * Reason Comments Follow Up Encounter Details Date Type Department Care Team (Late st Contact Info) Description 11/15/2023 2:15 PM EDT Office Visit Thoracic Surg [facility] [address], [place] [id number] Josué Charles MD [address] [place], [place] [phone] Mediastinal lymphadenopathy*; Hilar lymphadenopathy; Nodule of lower lobe of right lung Allergies Active Allergy Reactions Criticality Noted Date Comments Penicillins 04/17/1998 documented as of this encounter (statuses as of 11/15/2023) Medications Medication Sig Dispensed Refills Start Date End Date Status Magnesium 400 MG Oral Capsule Take 1 Capsule by mouth in the morning. Active OneTouch Delica Plus [id number] 4 times a day. As directed. 06/04/2022 [...] EVERY 14 DAYS (USE PHONE FOR THE MANAGER WELDING) 6 Each 3 07/07/2023 Active Warfarin Sodium [...] for 3 weeks to spot on right orthodoxy (and a 1cm border surrounding). 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 therapy 1 03/28/2002 [...] LNP-s, No Preserve , Barry-sucrose, Ages 12+ (Socialtyze) 07/28/2021 COVID-19, MRNA-LNP, 23-24, P F, 30 MCG/0.3 mL, 12 YRS AND ABOVE, IM ([employer]) 11/15/2022 COVID-19, MRNA-LNP, 24-25, P R, 30MCG/0.3ML, IM, 12YRS AND ABOVE ([employer]) 10/28/2023 Covid-19 Ad26, Single Dose ([employer]/J&J) 12/12/2020,04/27/2020 Covid-19, Mrna, Lnp-s, Pf, B ivalent, 30 Mcg, IM, 12 yrs and above (Social[employer]ze) 02/12/2022 H1N1 2009 Influenza, IM 01/20/2009 Pneumococcal Conjugate Vacci ne, 20-valent ([id number]) 12/03/2021 Seasonal Influenza Virus Vac cine, Unspecified [...] 12:21 PM EDT THORACIC SURGERY CLINIC @ [facility] 11/15/2023 Last visit = 11/02/2022 After connecting [...] original HPI 05/12/2021: Narinder was admitted to [facility] last month from 04/11 - 04/14/2021. -- he had been feeling progressively more exhausted for some time -- perhaps days to a few weeks -- then suddenly he couldn't clinical veterinarian shower -- also diaphoresis and chest tightness [...] been feeling better. He met with Dr. Jugn, his stamp collector, last week for ongoing management of the [...] mouth in the morning. OneTouch Delica Plus [id number] 4 times a day. As directed. OneTouch [...] EVERY 14 DAYS (USE PHONE FOR THE MANAGER WELDING) 6 Each 3 Warfarin Sodium 5 MG [...] for 3 weeks to spot on right orthodoxy (and a 1cm border surrounding). Then send [...] (COVID-19 mRNA Vaccine 12 years and above Socialtyze) Inject into a large muscle. 0.3 mL 0 Enoxaparin Sodium 120 MG/0.8ML Injection Solution Prefilled Syringe (Lovenox) Inject 120 mg under the skin in the morning and 120 mg before bedtime. As directed by anticoagulation clinic for lovenox bridge.. 8 mL 0 No current facility-administered medications for this visit. 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 COLONOSCOPY, DIAGNOSTIC (RECTUM) 12/01/2019 benign polyp, repeat 5 yrs / COLONOSCOPY FLEXIBLE PROXIMAL DIAGNOSTIC performed by Dominick Silverio MD at ENDOSCOPY 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 PHYSIOLOGY: 04/14/2021 Dobutamine stress ECHO ([facility]): -- no inducible ischemia -- normal LV systolic function -- flattened LV septum -- RV dilation consistent with RV pressure overload 04/13/2021 EKG ([facility]): -- sinus bradycardia with rightward axis ASSESSMENT: [...] Charles MD FACS System Chief, Thoracic Surgery [facility] [place] [address] documented in this encounter Plan of Treatment Upcoming Encounters Date Type Department Care Team (Late st Contact Info) Description 12/16/2023 7:30 AM EDT Anticoagulation Pharmacy, [place] [address] [place] [address] [facility] [address] [place] [address] 02/02/2024 4:40 PM EST Office Visit Nephrology, [place] [address] [place] [address] Zander Bell MD [address] [facility] [place] [address] 05/01/2024 3:40 PM EDT Office Visit Family [facility] [address] [place] [phone] Lul Goff MD [address] [place] [address] Scheduled Procedures Name Priority Associated Diagnoses Date/Ti me COLONOSCOPY FLEXIBLE PROXIMAL DIAGNOSTIC Recall History of colon polyps Health Maintenance Due Date Last Done Comments Hepatitis B Vaccine (1 of 3 - 19+ 3-dose series) 1985 Cologuard 2011 Fecal Occult Blood Test 2011 Sigmoidoscopy 2011 Diabetic Eye Exam 02/05/2024 02/04/2023, , 02/04/2023, Additional history exists CKD HGB USE SMARTSET 79735 04/02/202404/02, 05/07/2021, 05/07/2021, Additional history exists GFR 04/24/2024 10/26/2023, 08/15, 07/30/2023, Additional history exists HbA1c 04/24/2024 10/26/2023, 08/2023, 04/02/2023, Additional history exists CKD PHOS USE SMARTSET 91419 06/21/2024 06/22/2023 Diabetic Foot Exam 06/21/2024 06/22/2023 [...] lung documented in this encounter Care Teams Ethics Manager Relationship Specialty Start Date End Date Lul Goff MD [address] [place] [address] PCP - General 10/09/03 documented as of this encounter
[2023-11-30] MEDS: ROPIV 0.5% 246mg, Ketorolac 30mg, EPINEPHrine 0.5mg in NSS INFIL SCH (11:55)
[2023-11-30] MEDS: ORTHO JOINT ANESTHETIC ONE (11:56)
[2023-11-30] MEDS: VANCOMYCIN HCL 1000MG/20ML VIAL ONE (11:56)
--- NOTE | 2023-11-30 12:43 | Operative Report ---
PG Post Operative Report Pre & Post Diagnosis Operation Date: 11/30/23 10:40 Pre-Op Diagnosis: Right Knee Degenerative Joint Disease Post-Op Diagnosis: Right Knee Degenerative Joint Disease I identified the patient and participated in the time-out.: Yes Procedure Operation Date: 11/30/23 10:40 Actual Procedures p Right Total Knee Arthroplasty(Right) - Glynn Lawrence MD Surgeon Glynn Lawrence MD Bag Bleacher Song Rabago PA-C Estimated Blood Loss 50 Findings Consistent with Post-Op Diagnosis Operative findings were advanced right knee medial compartment DJD. He had extensive grade 4 tmus-sm-rdcu disease of the medial femoral condyle medial tibial plateau. He is a fixed varus deformity to his knee. Large knee joint effusion. Specimens Right knee sent for pathology. Anesthesia Type Spinal MAC Complications none Disposition Accompanied Patient To Recovery: No Indications The patient is a 58-year-old gentleman has had a long history of knee problems describes gotten worse over the past 10 years. He had his left knee replaced about 7 years ago was done well from this. Continues to bothered by progressive increasing right knee pain discomfort. He failed all conservative measures. X- rays show advanced medial compartment arthritis. He elected proceed with total knee arthroplasty. Description of Procedure Operative implants consist of: 1. Biomet Vanguard size 70 right posterior stabilized femoral component. 2. Biomet size 71 tibial tray. 3. 10 mm posterior Byce polyethylene insert. 4. 34 x 8 and half all poly patella. The patient was taken to the operating, identified, placed on the operating table in the supine position. All conductors were appropriately padded. IV antibiotics fibra anesthesia team. A spinal anesthetic and adductor canal block had been Weida in the holding area. Right Tetrick was then placed. The right lower extremity was then prepped and draped in usual sterile fashion. The right leg was elevated exsanguinated with use of an Esmarch and the tourniquet was placed at 300 mmHg. An anterior approach to the right knee was then performed to longitudinal incision centered over the patella. Sharp disse ction was carried through subcutaneous tissues down the extensor mechanism. A medial parapatellar arthrotomy incision was made. Some subperiosteal dissection was carried out medially. The fat pad was dissected from Neath patella tendon. Patellofemoral ligament was released. Patella subluxated laterally and the knee was flexed. The osteophytes were taken off distal femur. The ACL and PCL then released from distal femur the tibia subluxated anteriorly. The external treatment LYMErix then placed on the interface the tibia and adjusted 14 mm medially. Proximal tibial cut was made remove about 1 to 2 mm of bone from the medial side. The tibia sized to a size 71. Attention drawn the femur. The distal femur examined the sharp drill. Intramedullary canal was suction. A right 6 degree valgus cutting guide was placed. The distal femoral cutting block was pinned in place. Distal femoral cut was made take an additional 3 mm of bone off distal femur. The femur was then sized to a size 70. The AP cutting block was pinned parallel to the epicondylar axis which was 4 degrees of external rotation. The anterior cut, anterior chamfer, posterior cut, posterior chamfer cuts were made. The box cutting guide was placed and adjust slight lateral and the box cut was made. The knee was flexed. The remnants of the medial and lateral menisci were excised. The osteophytes taken off the posterior aspect the femur. A trial femoral component was placed. The tibial tray was pinned Georgie external rotation and the drill and stem placement. Defect in proximal tibia for the tibial tray. The knee was then trialed and the 10 mm insert fit most appropriately. Attention drawn the patella. The patella was cleaned of all soft tissue. Patella thickness measured 23 mm in thickness was cut down to 15. Was sized to a size 34 patella. The lug holes were drilled for 34 patella. The lateral osteophytes removed. Patella button was placed. Knee was taken through range of motion and the patella tracked nicely with no thumbs test. Attention drawn to place the permanent components. All trial components were removed. Bone plug was placed into this femur limit blood loss. A double batch Palacos G cement was mixed. I did add an additional gram of vancomycin due to his diabetes and obesity. A Biomet Vanguard size 70 right posterior Byce femoral component, size 71 tibial tray, 10 mm posterior Byce polyethylene insert, and a 34 x 8-1/2 all poly patella then cemented in place. The knee was brought out into full extension till cement hardened. Final cement check was then performed. The pericapsular tissues were injected with a total of 100 cc of Ortho mix. Patient did receive 1 g tranexamic acid. The tourniquet was then let down for final turn time to 56 minutes. Hemostasis assured use electrocautery. Extensor Metros then closed with combination 1 PDS suture #1 Vicryl suture in a [id number] fashion. Extensor Meclomen checked found be intact and subcutaneous tissue then closed with 2 Dexon suture in a buried interrupted fashion skin was closed skin ruth. Leg was then cleaned and dried and sterile dressed with Xeroform, 4 fours, sterile cast padding, Luke bandage were applied. Patient then transferred to the recovery room in stable condition. Patient tolerated the procedure well and there were no complications. Song Rabago, my physician talent acquisition assistant, was present for the entire procedure. His assistance was essential and required for appropriate patient positioning, prepping and draping, surgical exposure, performing the technical details of the operation, placement the implants, closure of the wound, and placement of the sterile bandage. I attest to the content of the Intraoperative Record and any orders documented therein. Any exceptions are noted below.
--- NOTE | 2023-11-30 12:59 | XRay Report ---
TWO VIEWS RIGHT KNEE CLINICAL HISTORY: Postoperative examination. FINDINGS: AP and crosstable lateral portable views of the right knee are obtained. A right knee arthr oplasty is in near anatomic alignment. There has been undersurface remodeling of the patella. No acut e fracture is seen. There are expected postoperative changes around the knee including skin clips, so ft tissue edema, and subcutaneous gas. IMPRESSION: Expected postoperative changes status post right knee arthroplasty. No acute fracture is seen. ACT 112: Negative or not required by law. Electronically signed by: Domenic Quigley M.D. 11/30/2023 12:58 PM
[2023-11-30] MEDS ORDERED: bisacodyL 10 MG SUPP PR PRN (13:23)
[2023-11-30] MEDS ORDERED: NALOXONE HCL 0.4 MG/1 ML VIAL/CARP IV PRN (13:23)
[2023-11-30] MEDS ORDERED: METOCLOPRAMIDE HCL INJ 5 MG/ML 2 ML VIAL IV PRN (13:23)
[2023-11-30] MEDS ORDERED: GLUCAGON FOR INJ 1 MG VIAL SQ PRN (13:23)
[2023-11-30] MEDS ORDERED: PHARMACY GLYCEMIC MGMT CONSULT PRN (13:23)
[2023-11-30] MEDS ORDERED: TAMSULOSIN HCL 0.4 MG CAP PO PRN (13:23)
[2023-11-30] MEDS ORDERED: HYDROmorphone INJ 0.5 MG/0.5 ML SYR IV PRN (13:23)
[2023-11-30] MEDS ORDERED: CARBOHYDRATES FOR HYPOGLYCEMIA PO PRN (13:23)
[2023-11-30] MEDS ORDERED: diphenhydrAMINE Capsule 25 MG CAP PO PRN (13:23)
[2023-11-30] MEDS ORDERED: GLUCOSE 10 TAB/TUBE PO PRN (13:23)
[2023-11-30] MEDS ORDERED: ALUMINUM/MAGNESIUM SUSP 30 ML UDC PO PRN (13:23)
[2023-11-30] MEDS ORDERED: MAGNESIUM HYDROXIDE SUSP 30 ML UDC PO PRN (13:23)
[2023-11-30] MEDS ORDERED: GLUCOSE 40% GEL 15 GM TUBE PO PRN (13:23)
[2023-11-30] MEDS ORDERED: DEXTROSE 50% 50 ML SYRINGE IV PRN (13:23)
--- NOTE | 2023-11-30 13:26 | Anesthesiology Progress Note ---
Date of Service November 30, 2023 Anesthesia Post Procedure Vital Signs Vital Signs: Temp Pulse Resp BP Pulse Ox O2 Del Method O2 Flow Rate 11/30/23 13:00 37.1 C 65 19 111/67 95 Room Air 11/30/23 12:50 67 22 104/66 95 Room Air 11/30/23 12:40 70 18 106/61 94 Room Air 11/30/23 12:31 36.3 C L 75 24 105/59 L 97 Oxymask 4 11/30/23 09:20 36.7 C 72 20 166/103 H 96 Room Air Pain Intensity Right Knee: Pain Intensity: 2 Transfer of Care Handoff Completed per policy Notes Mental Status: alert / awake / arousable and participated in evaluation Patient Amnestic to Procedure: Yes Nausea / Vomiting: adequately controlled Pain: adequately controlled Airway Patency, RR, SpO2: stable & adequate BP & HR: stable & adequate Hydration State: stable & adequate Neuraxial Anesthesia: was administered and sensory block is resolving Anesthetic Complications: no major complications apparent and Pt Satisfied with anesthetic care
[2023-11-30] MEDS: SODIUM CHLORIDE 0.9% 1,000 ML IV SCH (13:40)
[2023-11-30] MEDS: KETOROLAC 30 MG/ML VIAL IV SCH (14:12)
--- NOTE | 2023-11-30 15:01 | Pharmacy Report ---
Pharmacy Glycemic Short Note 2 - Date of Service November 30, 2023 - Glycemic Short BSG Results (Last 24 hours): 11/30/23 11/30/23 09:00 12:56 POC Glucose 121 H 104 H OUTPATIENT ANTIDIABETIC REGIMEN: * Toujeo 34 units SQ qAM * Empagliflozin 10mg PO qAM * Semaglutide 2mg SQ weekly (on Sundays) * HbA1c: 6.7% (11/12/23) ASSESSMENT: * Mr Ingram is a 58yo diabetic, POD 0 s/p R TKA with Dr Lawrence this morning. * It does not appear as though pt received any intraoperative steroids today, but patient is scheduled to receive 10mg IV dexamethasone tomorrow morning. Anticipate that pt will require more aggressive insulin management starting tomorrow to control for steroid-induced hyperglycemia. * Pt is ordered a diabetic diet. * Basal/bolus insulin regimen initiated on admission. PLAN FOR INPATIENT GLYCEMIC CONTROL: * Hold outpatient oral diabetes medications * Basal insulin * Lantus 20 units SQ x1 dose post-op * Transition back to AM dosing tomorrow; will likely provide additional basal tomorrow with DXM * Bolus insulin * NovoLog per scale ACHS or Q6hrs while NPO * Goal Range: Low 110 mg/dL - High 140 mg/dL * Correction Factor: 25 mg/dL/unit * Nutritional / Prandial insulin per carb ratio of 1 unit per 7 grams CHO consumed
[2023-11-30] MEDS: busPIRone 5 MG TAB PO SCH (15:11)
[2023-11-30] MEDS: LANTUS PER UNIT CHARGE SQ ONE (15:16)
[2023-11-30] MEDS: carvediloL 12.5 MG TAB PO SCH (17:17)
[2023-11-30] MEDS: ASCORBIC ACID 500 MG TAB PO SCH (17:18)
[2023-11-30] MEDS: INSULIN ASPART PER UNIT CHARGE SC SCH (17:24)
[2023-11-30] MEDS: ceFAZolin 2000MG 2,000 MG/15 ML SYR IV SCH (18:25)
[2023-11-30] MEDS: TRANEXAMIC ACID / 0.7% NACL 1,000 MG/100 ML BAG IV SCH (18:34)
[2023-11-30 19:28] VITALS: RESP 18
[2023-11-30] MEDS ORDERED: ASPIRIN 81 MG ECTAB PO SCH (21:00)
[2023-11-30] MEDS: DOCUSATE SODIUM 100 MG CAP PO SCH (21:16)
[2023-11-30] MEDS: MAGNESIUM OXIDE 400 MG TAB PO SCH (21:17)
[2023-11-30] MEDS: ESCITALOPRAM OXALATE 20 MG TAB PO SCH (21:17)
[2023-11-30] MEDS: ROSUVASTATIN CALCIUM 10 MG TAB PO SCH (21:18)
[2023-11-30] MEDS: SENNA 8.6 MG TAB PO SCH ×2 (21:18→21:30)
--- NOTE | 2023-12-01 06:59 | Orthopedic Progress Note ---
Date of Service December 01, 2023 Assessment & Plan (1) Status post total right knee replacement: Pain controlled Continue dvt prophylaxis: teds, scd's, lovenox bridge 30mg BID/coumadin PT/OT wbat d/c planning: likely home with home health later today after PT. Follow up in 2- 3 weeks post op Labs pending Will discuss with Dr Howard Vazquez . 58 year old patient POD 1 from right tka. Doing fairly well. Pain is manageable. He has been able to lift his leg/bend his knee. No other complaints. Review of Systems All systems reviewed & are unremarkable except as noted in HPI & below. Physical Exam . alert and oriented. NAD VSS Right leg: Dressing clean, dry, intact. Able to do straight leg raise, dorsiflex/plantarflex. NVI labs pending Results & Data Results & Data Laboratory Results . Diagnostic Findings . PG Care Time/CCT Total # of Minutes Spent Total Time Spent with Patient: Total time spent is greater than 50% in coordination of care (as documented) at patient's floor/unit and/or counseling patient: Coding Level of Care Code 24546 Post Operative Follow-Up Diagnoses Status post total right knee replacement Z96.651
[2023-12-01 07:10] LABS: Hematocrit (blood only) 40.6 % (42.0-52.0); Hemoglobin 13.6 g/dl (14.0-18.0); Mean Corpuscular Hemoglobin 28.3 pg (25.0-34.0); Mean Corpuscular Hgb Conc 33.5 g/dL (32.0-36.0); Mean Corpuscular Volume 84.6 fL (80.0-100.0); Mean Platelet Volume 11.1 fL (9.4-12.4); Platelet Count 160 K/uL (130-400); RDW Coefficient of Variation 14.5 % (11.5-14.5); RDW Standard Deviation 44.3 fL (36.4-46.3); White Blood Count 7.19 K/ul (4.8-10.8)
[2023-12-01 07:16] LABS: Calcium 8.2 mg/dl (8.6-10.3); Creatinine Clr Calc Pharmacy 90.2 ml/min; Potassium 4.5 mmol/L (3.5-5.1)
[2023-12-01 07:44] LABS: INR 1.1 (0.9-1.1); Prothrombin Time 11.6 Seconds (9.0-12.0)
[2023-12-01] MEDS: MULTIVITAMIN TAB PO SCH (08:19)
[2023-12-01] MEDS: lisinopril 20 MG TAB PO SCH (08:19)
[2023-12-01] MEDS: dexAMETHasone 10 MG in SYRINGE 0 ML IV SCH (08:20)
[2023-12-01] MEDS: LANTUS PER UNIT CHARGE SC SCH (08:25)
[2023-12-01] MEDS: oxyCODONE HCL IR 5 MG TAB (IMMEDIATE RELEASE) PO PRN (08:25)
[2023-12-01] MEDS ORDERED: EMPAGLIFLOZIN 10 MG TAB PO SCH (09:00)
[2023-12-01 11:23] VITALS: BP 152/96; PULSE 69; TEMP 98.4; O2SAT 94
[2023-12-01] MEDS ORDERED: ENOXAPARIN INJ 30 MG/0.3 ML SYR SQ SCH (13:00)
[2023-12-01] MEDS ORDERED: WARFARIN SOD 10 MG TAB PO SCH (16:00)
--- NOTE | 2023-12-03 13:27 | Discharge Summary ---
Date of Service December 03, 2023 Admission HPI (Per Admitting) . The patient is a 58-year-old gentleman long-term patient of mine who presents for surgical treatment of his right knee at this time. Got a long history of knee problems and we replaced his left knee 7 years ago. He done pretty good with this. He has been through extensive conservative treatment respect to his right knee. The last shot only helped him for 3 days or so. He is trying to stay active but have more difficulty doing this due to his knee pain. He has a limited walking tolerance. His knee aches more as the day goes on. He limps more as the day goes on. He does have a history of factor V Leiden abnormality and on Coumadin for this. Admission Exam (Per Admitting) . Physical examination reveals a pleasant fairly large middle-age male. Examination of both knees reveal patient walks with a bit of a limp. Examination of the right knee reveals a varus alignment to his knee. Is tender over the medial joint line. Small knee effusion. Range of motion about 5-1 20. No instability. No pain with hip motion. Examination left knee reveals well- healed incision. Got anatomic alignment to the knee. No swelling. Range of motion 0-1 20. Principal Diagnosis Same as "Discharge Diagnosis" noted below under Discharge Instructions. Discharge Exam . alert and oriented. NAD VSS Right leg: Dressing clean, dry, intact. Able to do straight leg raise, dorsiflex/plantarflex. NVI labs pending Discharge Data Procedures Performed Operation Date: 11/30/23 10:40 Actual Procedures p Right Total Knee Arthroplasty(Right) - Glynn Lawrence MD Ordered Studies 11/30/23 05:00 US - OR guided needle placemen Routine Hospital Course (1) Status post total right knee replacement: This is a 58 year old patient admitted on 11/30/23 and underwent total knee arthroplasty. He tolerated the procedure well and there were no complications. Transferred to the PACU post op and later to the orthopedic floor for further care. He was given ancef for antibiotic prophylaxis. He was also given ADELIA stockings, SCDs, and lovenox/coumadin for DVT prophylaxis. Hemoglobin, hematocrit, and vital signs were monitored during his hospital stay and remained stable. Did not require any blood transfusions. There were no complications during his hospital stay. By post op day #1 the patient was tolerating a diabetic diet, pain was reasonably controlled with oral pain medicine, and he was participating in physical therapy. On post op day #1 the patient was discharged home and set up with home health care. He was given printed discharge instructions including prescriptions for extra strength tylenol, lovenox, cefadroxil, zofran, oxycodone, and senokot. Continue is home coumadin. Continue physical therapy, weight bearing as tolerated. Continue ADELIA stockings. Follow up approximately 2 weeks post op or sooner if there are problems or concerns. PG Care Time/CCT Total # of Minutes Spent Total Time Spent with Patient: Total time spent is greater than 50% in coordination of care (as documented) at patient's floor/unit and/or counseling patient: Discharge Plan Discharge Items Patient Disposition: Home - Home Health Services Reason For Visit: RIGHT KNEE REPLACEMENT Discharge Diagnosis: Right Knee Replacement Activity: Per Instructions section Weightbearing: Full weightbearing Non-emergency contact: Surgeon Call non-emergency contact if: you have any medication questions Follow-up/Referrals: Lul Goff MD [Primary Care Provider] - Diet: Carb Consistent or DM2 Addtl Attending Provider Instructions: ACTIVITY RECOMMENDATIONS: Diet: * You may resume previous diet. Physical Therapy: * You will go to physical therapy three times each week for four to six weeks after your surgery in order to regain your knee range of motion and to retrain your knee to work properly. * It is just as important to make sure you are getting your knee perfectly straight as it is to regain your knee bend. * Taking a pain pill an hour before therapy can help you have a more productive and comfortable therapy session. Home Exercise: * You were shown a series of exercises (heel props, heel slides, etc.) in the hospital. Do these exercises three to four times each day including the exercises you were shown in physical therapy. Walking: * Get up and walk several times each day. For the first four weeks, try not to stand or walk for more than one hour at a time. If you do stand or walk for more than one hour, you will not hurt anything, but your knee and leg will likely swell. * As you feel comfortable, you may change from the walker or crutches to a cane and then to independent walking. MEDICATIONS: New Medicine: * You will likely be taking one or more of these medications: 1. Oxycodone - A quick and shorter-acting pain medication. Take one to two tablets every six hours to lessen your pain. 2. Coumadin - Thins your blood to lessen the chance of forming a blood clot. * The most common side effects of pain medicine and iron are nausea and constipation. If nausea or constipation is too much of a problem or if you have any questions about your new medicines or doses, call [facility] at . We will try to help you manage these issues. "VERY IMPORTANT TO READ AND REVIEW" Pain: * The immediate post-operative period after knee replacement surgery is often quite painful. * You are given a prescription for pain medicine. You should take it, as directed, when you need it, especially before physical therapy and before going to bed. Pain that interferes with sleep is very common and can last several months. * You will likely need pain medicine for the first four to six weeks. It will not stop all of the pain. The pain will lessen and as you feel better, you may change to milder pain medicine such as Tylenol. * The most common side effects of pain medicine are nausea and constipation, so don't take more than you need. SPECIAL CARE INSTRUCTIONS: TEDs/Elastic Stockings: * The white elastic stockings help limit swelling and prevent blood clots from forming in your legs. The more you wear them, the more they work. * Wear them for six weeks after knee replacement surgery and four weeks after partial knee replacement. Incision Site Care: * Remove dressing postoperative day 2 and then shower. Keep direct shower pressure off the incision site. * After showering, cover ruth with dry gauze and change daily or more frequently if the dressing is getting saturated with drainage. * Use the ADELIA stockings to hold dressing in place. DO NOT apply tape on the skin. * May completely stop using bandage if wound is dry and no drainage * Ruth are removed between 2 and 3 weeks post-op. If your follow-up appointment is made before 2 weeks, please have your appointment re- scheduled. It is too early to remove the ruth. Prevention of Infection: * Take antibiotics one hour before any dental cleaning, dental work, urological procedure, gastrointestinal procedure or any invasive surgery in order to prevent your new joint from getting infected. * You may get the antibiotics from the doctor performing the procedure or you may call our office at [phone] before and we will call in a prescription to the pharmacy of your choice. Things to Watch For: * Drainage from the incision site that occurs more than one week after your surgery. * Severely increased knee/leg pain or swelling. * Increased redness at the incision site. * Fever above 102 degrees Fahrenheit. * Unusual chest pain or shortness of breath. * Unusual pain or burning with urination. Call [facility] at [phone] with any of the above problems or if you have any questions about your medicines or recovery. FOLLOW UP VISIT: Make an appointment to see your doctor for approximately two weeks after surgery for a progress check and staple removal by calling the office at [phone]. Pending Studies at Discharge: No Stand-Alone Forms: My [facility], Smoking Cessation Medications and DC Order Prescriptions: New enoxaparin [Lovenox] 30 mg/0.3 mL Syringe 30 mg subcut Q12H Qty: 3 0RF Continued warfarin 5 mg Tablet 10 mg PO 5XWK 90 Days Qty: 0 Patient Comments: pt took 15 mg this am Rx Instructions: 10mg on all days of the week except Wednesday and Wednesday 5 mg all other days (wednesday and wednesday) (KG) [facility] See Rx Instructions .MEDSUPPLY Qty: 1 0RF Rx Instructions: As directed oxycodone 5 mg tablet 5 - 10 mg PO Q6 PRN (Reason: pain) Qty: 40 0RF Rx Instructions: Take as needed for pain ondansetron 4 mg tablet,disintegrating 4 mg PO Q8 PRN (Reason: nausea) Qty: 20 1RF Rx Instructions: Take as needed for nausea sennosides [Senokot] 8.6 mg tablet 8.6 mg PO BID 14 Days Qty: 28 0RF Rx Instructions: Take two times a day to prevent/treat constipation acetaminophen [Tylenol Extra Strength] 500 mg tablet 1,000 mg PO TID 30 Days Qty: 180 0RF Rx Instructions: Take 3 times per day to lessen pain. cefadroxil 500 mg capsule 500 mg PO BID 7 Days Qty: 14 0RF Rx Instructions: Take 1 cap twice a day to prevent infection rosuvastatin 10 mg tablet 10 mg PO QPM Ozempic 0.25 mg or 0.5 mg(2 mg/1.5 mL) pen injector 2 mg SUBCUT WK Rx Instructions: WEDNESDAY warfarin 5 mg Tablet 5 mg PO 2XWK Patient Comments: pt took 15 mg this am. Rx Instructions: Wednesday, Wednesday, Wednesday carvedilol 25 mg tablet 12.5 mg PO BID (DME) pen needle, diabetic [Pen Needle] 32 gauge x 5/32" needle See Rx Instructions .Route Qty: 200 2RF Rx Instructions: As directed (DME) OneTouch Verio test strips Strip See Rx Instructions .Route Qty: 200 2RF Rx Instructions: As directed (DME) lancets [OneTouch Delica Lancets] 33 gauge misc See Rx Instructions .Route Qty: 2 2RF Rx Instructions: As directed buspirone 5 mg tablet 5 mg PO TID escitalopram oxalate 20 mg tablet 20 mg PO QPM lisinopril 20 mg Tablet 20 mg PO QAM Qty: 30 0RF insulin glargine U-300 conc [Toujeo Max U-300 SoloStar] 300 unit/mL (3 mL) insulin pen 34 unit subcut QAM magnesium 200 mg Tablet 400 mg PO QPM Jardiance 10 mg tablet 10 mg PO QAM Discontinued enoxaparin [Lovenox] 100 mg/mL Syringe 100 mg SUBCUT Q12H Krames/Other Patient Handouts: Enoxaparin Injectable Solution, Enoxaparin Prefilled Syringe, Managing Type 2 Diabetes, Special Foot Care for Diabetes Admission Data Admit Date/Time: 11/30/23 12:35 Attending Provider: Glynn Lawrence Admit Provider: Glynn Lawrence Primary Care Provider: Lul Goff Other Interventions: Discharge Summary Assessment (RN) Last Done: 12/01/23 12:52
== END 2023-12-01 13:41 | disposition home health service (06) ==
LOC: ASU 08:43 → 3E 08:43
DX: D68.2 Hereditary deficiency of other clotting factors; Z79.01 Long term (current) use of anticoagulants; Z68.42 Body mass index [BMI] 45.0-49.9, adult; N18.9 Chronic kidney disease, unspecified; G47.33 Obstructive sleep apnea (adult) (pediatric); M17.11 Unilateral primary osteoarthritis, right knee; Z79.899 Other long term (current) drug therapy; Z88.0 Allergy status to penicillin; Z86.718 Personal history of other venous thrombosis and embolism; E11.9 Type 2 diabetes mellitus without complications; I12.9 Hypertensive chronic kidney disease with stage 1 through stage 4 chronic kidney disease, or unspecified chronic kidney disease; J44.9 Chronic obstructive pulmonary disease, unspecified; E66.9 Obesity, unspecified